=== PATIENT | male | born 1930 | race Caucasian/White ===

== ENCOUNTER 2020-03-12 17:13 | Emergency (ER) | payer MEDICARE ==
[~2020-03-12] VITALS: Ht 175.3 cm; Wt 73.5 kg
[~2020-03-12 17:13] MED LIST: ALBUTEROL2.5 MG/3 M INH; AMLODIPINE BESYL5 MG PO; ATORVASTATIN CA20 MG PO; EASY AIR COMPR1 EACH IH; ELIQUIS2.5 MG OD; LANTUS 3ML100 UNITS/; LISINOPRIL10 MG PO; METFORMIN HCL500 MG PO; VITAMIN B122500 MCG PO; VITAMIN D3 COM1 EACH PO; VITAMIN D34000 UNIT
--- OUTSIDE RECORDS SUMMARY | 2020-03-12 17:15 | XMS REPORT | Clinical Summary ---
Author Author [facility] Organization [facility] Address Unknown Phone Unavailable Care Team Providers Care Privacy Attorney Name Role Phone Neymar Ford MD PCP Allergies No Known Allergies Medications End Date Status Medication Sig Dispensed Refills Start Date Active hydrALAZINE (APRESOLINE) TAKE 1 TABLET 3 12/30 25 MG tablet BY ORAL ROUTE 8 2 TIMES EVERY DAY WITH FOOD Active metFORMIN (GLUCOPHAGE) Take 1,000 mg 0 01/01/2 01 1,000 mg tablet by mouth 2 8 (two) times a day. Active quinapril (ACCUPRIL) 40 TAKE ONE 0 12/07/ 201 MG tablet TABLET BY 8 MOUTH TWICE A DAY BEFORE MEALS Active carvedilol (COREG) 12.5 Take 12.5 mg 0 MG tablet by mouth 2 (two) times a day with meals. Active amLODIPine (NORVASC) 5 mg Take 5 mg by 0 tablet mouth daily. Active insulin GLARGINE (LANTUS) Inject 20 0 100 unit/mL injection Units under (vial) the skin daily. Patient takes it at 8 am after breakfast. He would like to have it here at 9 am. Active atorvastatin (LIPITOR) 10 Take by mouth 0 MG tablet daily. Dose Unknown Active Problems Problem Noted Date Pneumonia of both lungs due to infectious organism 0 03/16/2018 Social History Date Tobacco Use Types Packs/Day Years Used Never Smoker Smokeless Tobacco: Never Used Drinks/Week oz/Week Comments Alcohol Use No Sex Assigned at Date Recorded Not on file Industry Job Start Date Occupation Not on file Not on file Not on file Travel End Travel History Travel Start No recent travel history available. Last Filed Vital Signs Not on file Plan of Treatment Health Maintenance Due Date Last Done Comments SHINGLES VACCINES (#1) 1982 65+ PNEUMOCOCCAL VACCINE 1997 (1 of 2 - PCV13) INFLUENZA VACCINE 06/06/2020 Results Not on fileafter 03/12/2019 Insurance Type Payer Benefit Subscriber ID Effective Phone Address Plan / Dates Group HMO [employer] C[employer] xxxxxxxxxxx [id number] [employer] resent [place] HMO MCR ADV Advance Directives For more information, please contact: [phone] Patient Dish Person Explanation Type Date Recorded Advance Directives, 01/28/2016 1:02 PM Living Will and Medical Power of [employer] Advance Directives, 11/27/2016 1:16 PM Living Will and Medical Power of [employer] Advance Directives, 05/13/2018 9:31 AM Living Will and Medical Power of [employer] Date Inactivated Comments Code Status Date Activated 03/19/2018 9:24 PM Full Code 03/16/2018 11:28 PM Code Status decision reached by: Patient
--- OUTSIDE RECORDS SUMMARY | 2020-03-12 17:16 | XMS REPORT | Clinical Summary ---
Author Author [employer] 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 Active metFORMIN (GLUCOPHAGE) Take 1,000 mg 0 1000 MG tablet by mouth 2 (two) times daily. Active atorvastatin (LIPITOR) 20 Take 20 mg by 0 MG tablet mouth daily. Active insulin Inject 30 0 glargine,hum.rec.anlog Units (TOUJEO SOLOSTAR U-300 subcutaneousl INSULIN SUBQ) y daily. 11/13/2020 Active clopidogrel (PLAVIX) 75 Take 1 tablet 30 tablet 1 mg tablet (75 mg total) 0 by mouth daily. 11/13/2020 Active furosemide (LASIX) 20 MG Take 1 tablet 20 tablet 0 tablet (20 mg total) 0 by mouth daily. 11/12/2020 Active hydrALAZINE (APRESOLINE) Take 1 tablet 90 tablet 1 10 MG tablet (10 mg total) 0 by mouth every 8 (eight) hours. 11/12/2020 Active carvedilol (COREG) 6.25 Take 1 tablet 60 tablet 1 MG tablet (6.25 mg 0 total) by mouth 2 (two) times daily with breakfast and dinner. 10/28/2019 Discontinued cyanocobalamin, vitamin Take by mouth 0 B-12, 2,500 mcg Tab daily with breakfast. 11/13/2019 Discontinued amLODIPine (NORVASC) 2.5 Take 2.5 mg 0 MG tablet by mouth 2 (two) times daily. 11/13/2019 Discontinued lisinopril Take 10 mg by 0 (PRINIVIL,ZESTRIL) 10 MG mouth daily. tablet 11/13/2019 Discontinued carvedilol (COREG) 6.25 Take 1 tablet 60 tablet 1 MG tablet (6.25 mg 0 total) by mouth 2 (two) times daily with breakfast and dinner. 11/13/2019 Discontinued carvedilol (COREG) 6.25 Take 2 60 tablet 1 MG tablet tablets (12.5 0 mg total) by mouth 2 (two) times daily with breakfast and dinner. Active Problems Problem Noted Date Severe aortic stenosis 10/27/2019 Encounters Care Team Description Date Type Specialty Anayeli Moses RN Follow-up (s/p TAVR) 01/21/2020 Telephone Cardiology Adam Wynne MD TAVR / HERLINDA MCR - IP PROC ONLY 11/08/2019 Surgery Elaine Gomez 11/08/2019 Anesthesia Event Ramiro Abad MD R CATH & CORONARY ANGIOS 10/31/2019 Surgery 10/27/2019 Travel Tony Cai MD Arana, MD Asif Collins, MD Danii Severe aortic stenosis; Delirium; Acute kidney injury (HCC); Acute on chronic systolic heart failure (HCC); Chronic atrial fibrillation; Essential hypertension; Type 2 diabetes mellitus with stage 3 chronic kidney disease, unspecified whether fdc insulin use (HCC); Acute on chronic diastolic (congestive) heart failure (HCC) 10/26/2019 Hospital Cardiology - Encounter 11/13/2019 after 03/12/2019 Social History Date Tobacco Use Types Packs/Day Years Used Never Assessed Sex Assigned at Date Recorded Not on file Industry Job Start Date Occupation Not on file Not on file Not on file Travel End Travel History Travel Start No recent travel history available. Last Filed Vital Signs Time Taken Vital Sign Reading 11/13/2019 11:35 AM [facility] Blood Pressure 174/82 11/13/2019 2:05 PM [facility] Pulse 78 11/13/2019 11:35 AM [facility] Temperature 36.8 C (98.3 F) 11/13/2019 2:05 PM [facility] Respiratory Rate 18 11/13/2019 2:05 PM [facility] Oxygen Saturation 98% 11/13/2019 8:20 AM [facility] Inhaled Oxygen 21% Concentration 11/13/2019 8:12 AM [facility] Weight 72.4 kg (159 lb 9.6 oz) 10/26/2019 11:40 PM [facility] Height 172.7 cm (5' 8") 11/13/2019 8:12 AM [facility] Body Mass Index 24.27 Plan of Treatment Not on file Implants Device Identifier Shelf Expiration Date Model / Serial / L ot Implanted Type Area Manufactur er 09/12/2020 EVPROPLUS-26US / / [id number] Valve Evolut Pro+ Trnscthtr 34 IMPLANTS [employer]: Evproplus-26us - [id number] STRUCTURAL Implanted: Qty: 1 on 11/08/2019 by HEART Adam Wynne MD Procedures Comments Procedure Name Priority Date/Time Associated Diag nosis RHYTHM STRIP - SCAN 12/03/2019 4:01 PM [facility] RHYTHM STRIP - SCAN 11/27/2019 12:31 PM [facility] VASCULAR DIAGRAM -SCAN 11/21/2019 2:00 PM [facility] RHYTHM STRIP - SCAN 11/14/2019 1:33 PM [facility] REPORT OF PROCEDURE - 11/14/2019 ENDOSCOPY SCAN 11:13 AM [facility] CARDIAC CATH REPORT - 11/14/2019 SCAN 11:13 AM [facility] CARDIAC CATH REPORT - 11/14/2019 SCAN 11:13 AM [facility] PERMANENT LAB REPORT - 11/14/2019 SCAN 11:13 AM [facility] RHYTHM STRIP - SCAN 11/14/2019 11:13 AM [facility] RHYTHM STRIP - SCAN 11/14/2019 11:13 AM [facility] POCT-GLUCOSE METER Routine 11/13/2019 11:42 AM [facility] POCT-GLUCOSE METER Routine 11/13/2019 7:33 AM [facility] CBC W/PLT COUNT & AUTO Routine 11/13/2019 DIFFERENTIAL 4:43 AM [facility] HEPARIN ASSAY - Routine 11/13/2019 UNFRACTIONATED 4:43 AM [facility] PROTHROMBIN TIME/INR Routine 11/13/2019 4:43 AM [facility] FIBRINOGEN Routine 11/13/2019 4:43 AM [facility] CBC W/PLT COUNT & AUTO Routine 11/13/2019 DIFFERENTIAL 4:43 AM [facility] MAGNESIUM Routine 11/13/2019 4:43 AM [facility] BASIC METABOLIC PANEL (7) Routine 11/13/2019 4:43 AM [facility] POCT-GLUCOSE METER Routine 11/12/2019 9:57 PM [facility] POCT-GLUCOSE METER Routine 11/12/2019 5:43 PM [facility] RHYTHM STRIP - SCAN 11/12/2019 3:50 PM [facility] POCT-GLUCOSE METER Routine 11/12/2019 12:23 PM [facility] POCT-GLUCOSE METER Routine 11/12/2019 7:53 AM [facility] (CELLAVISION MANUAL DIFF) Routine 11/12/2019 5:01 AM [facility] CBC W/PLT COUNT & AUTO Routine 11/12/2019 DIFFERENTIAL 5:01 AM [facility] HEPARIN ASSAY - Routine 11/12/2019 UNFRACTIONATED 5:01 AM [facility] PROTHROMBIN TIME/INR Routine 11/12/2019 5:01 AM [facility] FIBRINOGEN Routine 11/12/2019 5:01 AM [facility] CBC W/PLT COUNT & AUTO Routine 11/12/2019 DIFFERENTIAL 5:01 AM [facility] MAGNESIUM Routine 11/12/2019 5:01 AM [facility] BASIC METABOLIC PANEL (7) Routine 11/12/2019 5:01 AM [facility] ECHOCARDIOGRAM REPORT - 11/11/2019 SCAN 9:21 PM [facility] POCT-GLUCOSE METER Routine 11/11/2019 8:49 PM [facility] POCT-GLUCOSE METER Routine 11/11/2019 5:03 PM [facility] POCT-GLUCOSE METER Routine 11/11/2019 11:49 AM [facility] POCT-GLUCOSE METER Routine 11/11/2019 8:17 AM [facility] CBC W/PLT COUNT & AUTO Routine 11/11/2019 DIFFERENTIAL 5:07 AM [facility] HEPARIN ASSAY - Routine 11/11/2019 UNFRACTIONATED 5:07 AM [facility] PROTHROMBIN TIME/INR Routine 11/11/2019 5:07 AM [facility] FIBRINOGEN Routine 11/11/2019 5:07 AM [facility] CBC W/PLT COUNT & AUTO Routine 11/11/2019 DIFFERENTIAL 5:07 AM [facility] MAGNESIUM Routine 11/11/2019 5:07 AM [facility] BASIC METABOLIC PANEL (7) Routine 11/11/2019 5:07 AM [facility] POCT-GLUCOSE METER Routine 11/10/2019 9:07 PM [facility] POCT-GLUCOSE METER Routine 11/10/2019 8:21 PM [facility] POCT-GLUCOSE METER Routine 11/10/2019 4:46 PM [facility] POCT-GLUCOSE METER Routine 11/10/2019 11:10 AM [facility] POCT-GLUCOSE METER Routine 11/10/2019 7:27 AM [facility] CBC W/PLT COUNT & AUTO Routine 11/10/2019 DIFFERENTIAL 4:13 AM [facility] HEPARIN ASSAY - Routine 11/10/2019 UNFRACTIONATED 4:13 AM [facility] PROTHROMBIN TIME/INR Routine 11/10/2019 4:13 AM [facility] FIBRINOGEN Routine 11/10/2019 4:13 AM [facility] CBC W/PLT COUNT & AUTO Routine 11/10/2019 DIFFERENTIAL 4:13 AM [facility] XR CHEST 1 VIEW Routine 11/10/2019 PORTABLE/BEDSIDE 2:43 AM [facility] LACTIC ACID, VENOUS Routine 11/10/2019 1:34 AM [facility] TROPONIN I Routine 11/10/2019 1:22 AM [facility] MAGNESIUM Routine 11/10/2019 1:22 AM [facility] BASIC METABOLIC PANEL (7) Routine 11/10/2019 1:22 AM [facility] ECG 12-LEAD Routine 11/10/2019 12:43 AM [facility] POCT-GLUCOSE METER Routine 11/09/2019 10:05 PM [facility] ECHOCARDIOGRAM REPORT - 11/09/2019 SCAN 9:21 PM [facility] TRANSFUSION SERVICE 11/09/2019 REPORT - SCAN 6:02 PM [facility] POCT-GLUCOSE METER Routine 11/09/2019 5:00 PM [facility] 2D ECHO W/ DOPPLER STAT 11/09/2019 (CW/PW/COLOR) 1:57 PM [facility] POCT-GLUCOSE METER Routine 11/09/2019 8:38 AM [facility] MAGNESIUM Routine 11/09/2019 6:12 AM [facility] BASIC METABOLIC PANEL (7) Routine 11/09/2019 6:12 AM [facility] XR CHEST 1 VIEW Routine 11/09/2019 PORTABLE/BEDSIDE 5:51 AM [facility] CBC W/PLT COUNT & AUTO Routine 11/09/2019 DIFFERENTIAL 4:17 AM [facility] APTT Routine 11/09/2019 4:17 AM [facility] HEPARIN ASSAY - Routine 11/09/2019 UNFRACTIONATED 4:17 AM [facility] PROTHROMBIN TIME/INR Routine 11/09/2019 4:17 AM [facility] FIBRINOGEN Routine 11/09/2019 4:17 AM [facility] CBC W/PLT COUNT & AUTO Routine 11/09/2019 DIFFERENTIAL 4:17 AM [facility] POCT-GLUCOSE METER Routine 11/08/2019 9:01 PM [facility] THROMBOELASTOGRAPH (TEG) Routine 11/08/2019 8:59 PM [facility] HEMOGLOBIN A1C Routine 11/08/2019 8:59 PM [facility] POCT-GLUCOSE METER Routine 11/08/2019 5:53 PM [facility] THROMBOELASTOGRAPH (TEG) Routine 11/08/2019 3:26 PM [facility] ANTITHROMBIN III AP Routine 11/08/2019 3:26 PM [facility] D-DIMER Routine 11/08/2019 3:26 PM [facility] APTT Routine 11/08/2019 3:26 PM [facility] APTT Routine 11/08/2019 3:26 PM [facility] XR CHEST 1 VIEW STAT 11/08/2019 PORTABLE/BEDSIDE 2:55 PM [facility] POCT-GLUCOSE METER Routine 11/08/2019 2:47 PM [facility] PREPARE LEUKO-REDUCED RBC Routine 11/08/2019 2:15 PM [facility] POCT-ACT Routine 11/08/2019 12:44 PM [facility] POCT-ACT Routine 11/08/2019 12:33 PM [facility] TAVR / HERLINDA MCR - IP 11/08/2019 Nonrheumatic a ortic valve PROC ONLY 12:19 PM [facility] stenosis Case Notes (2)CASE 1431/ ANESTHESIA / SILVIANO TRANSESOPHAGEAL ECHO Routine 11/08/2019 10:49 AM [facility] CONT WAVE PULSED DOPPLER Routine 11/08/2019 10:04 AM [facility] COLOR-FLOW MAPPING Routine 11/08/2019 10:04 AM [facility] ECG 12-LEAD Routine 11/08/2019 5:46 AM [facility] Procedure Note - Interface, External Ris In - 11/08/2019 5:46 AM [facility] Ventricula r Rate 88 BPM Atrial Rate 72 BPM QRS Duration 100 ms Q-T Interval 398 ms QTC Calculatio n(Bazett) 481 ms R [place] -56 degrees T [place] 108 degrees Atrial fibrillati on Left axis deviation Septal infarct , age undetermin ed Abnormal ECG No previous ECGs available ECG 12-LEAD STAT 11/08/2019 5:46 AM [facility] ABORH, MANUAL STAT 11/08/2019 3:21 AM [facility] CBC W/PLT COUNT & AUTO Routine 11/08/2019 DIFFERENTIAL 2:26 AM [facility] ABORH, MANUAL STAT 11/08/2019 2:26 AM [facility] TYPE AND SCREEN, STAT 11/08/2019 AUTOMATED 2:26 AM [facility] PROTHROMBIN TIME/INR STAT 11/08/2019 2:26 AM [facility] B-TYPE NATRIURETIC FACTOR Routine 11/08/2019 (BNP) 2:26 AM [facility] CBC W/PLT COUNT & AUTO Routine 11/08/2019 DIFFERENTIAL 2:26 AM [facility] MAGNESIUM Routine 11/08/2019 2:26 AM [facility] BASIC METABOLIC PANEL (7) Routine 11/08/2019 2:26 AM [facility] POCT-GLUCOSE METER Routine 11/07/2019 9:50 PM [facility] POCT-GLUCOSE METER Routine 11/07/2019 9:15 PM [facility] POCT-GLUCOSE METER Routine 11/07/2019 4:58 PM [facility] POCT-GLUCOSE METER Routine 11/07/2019 11:47 AM [facility] POCT-GLUCOSE METER Routine 11/07/2019 7:27 AM [facility] CBC W/PLT COUNT & AUTO Routine 11/07/2019 DIFFERENTIAL 4:56 AM [facility] CBC W/PLT COUNT & AUTO Routine 11/07/2019 DIFFERENTIAL 4:56 AM [facility] MAGNESIUM Routine 11/07/2019 4:56 AM [facility] BASIC METABOLIC PANEL (7) Routine 11/07/2019 4:56 AM [facility] POCT-GLUCOSE METER Routine 11/06/2019 9:24 PM [facility] POCT-GLUCOSE METER Routine 11/06/2019 4:50 PM [facility] POCT-GLUCOSE METER Routine 11/06/2019 12:01 PM [facility] POCT-GLUCOSE METER Routine 11/06/2019 8:02 AM [facility] (CELLAVISION MANUAL DIFF) Routine 11/06/2019 4:40 AM [facility] CBC W/PLT COUNT & AUTO Routine 11/06/2019 DIFFERENTIAL 4:40 AM [facility] CBC W/PLT COUNT & AUTO Routine 11/06/2019 DIFFERENTIAL 4:40 AM [facility] APTT Routine 11/06/2019 4:39 AM [facility] MAGNESIUM Routine 11/06/2019 4:39 AM [facility] BASIC METABOLIC PANEL (7) Routine 11/06/2019 4:39 AM [facility] APTT Routine 11/05/2019 10:40 PM [facility] POCT-GLUCOSE METER Routine 11/05/2019 10:18 PM [facility] POCT-GLUCOSE METER Routine 11/05/2019 4:55 PM [facility] POCT-GLUCOSE METER Routine 11/05/2019 1:14 PM [facility] POCT-GLUCOSE METER Routine 11/05/2019 7:09 AM [facility] PULMONARY FUNCTION - SCAN 11/05/2019 6:40 AM [facility] CBC W/PLT COUNT & AUTO Routine 11/05/2019 DIFFERENTIAL 5:42 AM [facility] CBC W/PLT COUNT & AUTO Routine 11/05/2019 DIFFERENTIAL 5:42 AM [facility] MAGNESIUM Routine 11/05/2019 5:42 AM [facility] BASIC METABOLIC PANEL (7) Routine 11/05/2019 5:42 AM [facility] POCT-GLUCOSE METER Routine 11/04/2019 9:29 PM [facility] APTT Routine 11/04/2019 8:46 PM [facility] POCT-GLUCOSE METER Routine 11/04/2019 5:59 PM [facility] APTT Routine 11/04/2019 2:32 PM [facility] POCT-GLUCOSE METER Routine 11/04/2019 11:50 AM [facility] CTA CHEST Routine 11/04/2019 10:49 AM [facility] CTA ABDOMEN & PELVIS Routine 11/04/2019 10:49 AM [facility] POCT-GLUCOSE METER Routine 11/04/2019 7:12 AM [facility] (CELLAVISION MANUAL DIFF) Routine 11/04/2019 5:03 AM [facility] CBC W/PLT COUNT & AUTO Routine 11/04/2019 DIFFERENTIAL 5:03 AM [facility] APTT Routine 11/04/2019 5:03 AM [facility] CBC W/PLT COUNT & AUTO Routine 11/04/2019 DIFFERENTIAL 5:03 AM [facility] MAGNESIUM Routine 11/04/2019 5:03 AM [facility] BASIC METABOLIC PANEL (7) Routine 11/04/2019 5:03 AM [facility] POCT-GLUCOSE METER Routine 11/03/2019 9:33 PM [facility] APTT Routine 11/03/2019 7:40 PM [facility] POCT-GLUCOSE METER Routine 11/03/2019 5:05 PM [facility] OSMOLALITY, SERUM Routine 11/03/2019 4:09 PM [facility] OSMOLALITY, URINE Routine 11/03/2019 4:08 PM [facility] APTT Routine 11/03/2019 11:50 AM [facility] POCT-GLUCOSE METER Routine 11/03/2019 11:47 AM [facility] (MANUAL DIFFERENTIAL) Routine 11/03/2019 4:05 AM [facility] CBC W/PLT COUNT & AUTO Routine 11/03/2019 DIFFERENTIAL 4:05 AM [facility] APTT Routine 11/03/2019 4:05 AM [facility] PROTHROMBIN TIME/INR Routine 11/03/2019 4:05 AM [facility] CBC W/PLT COUNT & AUTO Routine 11/03/2019 DIFFERENTIAL 4:05 AM [facility] MAGNESIUM Routine 11/03/2019 4:05 AM [facility] BASIC METABOLIC PANEL (7) Routine 11/03/2019 4:05 AM [facility] US RENAL COMPLETE Routine 11/03/2019 12:51 AM [facility] APTT Routine 11/02/2019 10:24 PM [facility] POCT-GLUCOSE METER Routine 11/02/2019 9:11 PM [facility] POCT-GLUCOSE METER Routine 11/02/2019 5:37 PM [facility] APTT Routine 11/02/2019 4:06 PM [facility] UREA NITROGEN, RANDOM Routine 11/02/2019 URINE 3:24 PM [facility] CREATININE, RANDOM URINE Routine 11/02/2019 3:24 PM [facility] SODIUM, RANDOM URINE Routine 11/02/2019 3:24 PM [facility] URINALYSIS W/ MICROSCOPIC Routine 11/02/2019 3:24 PM [facility] APTT Routine 11/02/2019 2:16 PM [facility] POCT-GLUCOSE METER Routine 11/02/2019 12:25 PM [facility] POCT-GLUCOSE METER Routine 11/02/2019 7:23 AM [facility] (CELLAVISION MANUAL DIFF) Routine 11/02/2019 4:22 AM [facility] CBC W/PLT COUNT & AUTO Routine 11/02/2019 DIFFERENTIAL 4:22 AM [facility] PROTHROMBIN TIME/INR Routine 11/02/2019 4:22 AM [facility] CBC W/PLT COUNT & AUTO Routine 11/02/2019 DIFFERENTIAL 4:22 AM [facility] MAGNESIUM Routine 11/02/2019 4:22 AM [facility] BASIC METABOLIC PANEL (7) Routine 11/02/2019 4:22 AM [facility] PERIPHERAL VASCULAR 11/01/2019 REPORT - SCAN 9:21 PM [facility] POCT-GLUCOSE METER Routine 11/01/2019 9:15 PM [facility] POCT-GLUCOSE METER Routine 11/01/2019 6:08 PM [facility] SPIROMETRY Routine 11/01/2019 1:31 PM [facility] PROTHROMBIN TIME/INR Add-On 11/01/2019 8:53 AM [facility] APTT Routine 11/01/2019 8:53 AM [facility] POCT-GLUCOSE METER Routine 11/01/2019 7:35 AM [facility] (CELLAVISION MANUAL DIFF) Routine 11/01/2019 4:54 AM [facility] CBC W/PLT COUNT & AUTO Routine 11/01/2019 DIFFERENTIAL 4:54 AM [facility] APTT Add-On 11/01/2019 4:54 AM [facility] PROTHROMBIN TIME/INR Routine 11/01/2019 4:54 AM [facility] CBC W/PLT COUNT & AUTO Routine 11/01/2019 DIFFERENTIAL 4:54 AM [facility] MAGNESIUM Routine 11/01/2019 4:54 AM [facility] BASIC METABOLIC PANEL (7) Routine 11/01/2019 4:54 AM [facility] CAROTID DOPPLER BILATERAL Routine 10/31/2019 7:40 PM [facility] POCT-GLUCOSE METER Routine 10/31/2019 6:01 PM [facility] POCT-GLUCOSE METER Routine 10/31/2019 12:18 PM [facility] POCT-ACT Routine 10/31/2019 11:10 AM [facility] R CATH & CORONARY ANGIOS 10/31/2019 Aortic valve stenosis, 10:46 AM [facility] etiology of cardiac valve disease unspecified POCT-GLUCOSE METER Routine 10/31/2019 8:11 AM [facility] (CELLAVISION MANUAL DIFF) Routine 10/31/2019 5:20 AM [facility] CBC W/PLT COUNT & AUTO Routine 10/31/2019 DIFFERENTIAL 5:20 AM [facility] APTT Routine 10/31/2019 5:20 AM [facility] CBC W/PLT COUNT & AUTO Routine 10/31/2019 DIFFERENTIAL 5:20 AM [facility] MAGNESIUM Routine 10/31/2019 5:20 AM [facility] BASIC METABOLIC PANEL (7) Routine 10/31/2019 5:20 AM [facility] POCT-GLUCOSE METER Routine 10/30/2019 9:48 PM [facility] POCT-GLUCOSE METER Routine 10/30/2019 4:07 PM [facility] HAPTOGLOBIN Routine 10/30/2019 2:35 PM [facility] LACTATE DEHYDROGENASE Routine 10/30/2019 (LDH) 2:35 PM [facility] HEMOGLOBIN AND HEMATOCRIT Routine 10/30/2019 2:35 PM [facility] POCT-GLUCOSE METER Routine 10/30/2019 12:10 PM [facility] POCT-GLUCOSE METER Routine 10/30/2019 7:19 AM [facility] (CELLAVISION MANUAL DIFF) Routine 10/30/2019 4:19 AM [facility] CBC W/PLT COUNT & AUTO Routine 10/30/2019 DIFFERENTIAL 4:19 AM [facility] HEPATIC FUNCTION PANEL Add-On 10/30/2019 4:19 AM [facility] FERRITIN Add-On 10/30/2019 4:19 AM [facility] IRON, TIBC, % SAT. Add-On 10/30/2019 (WITHOUT FERRITIN) 4:19 AM [facility] APTT Routine 10/30/2019 4:19 AM [facility] TSH Routine 10/30/2019 4:19 AM [facility] RPR Routine 10/30/2019 4:19 AM [facility] [facility] VITAMIN B12 AND FOLATE Routine 10/30/2019 4:19 AM [employer] [facility] CBC W/PLT COUNT & AUTO Routine 10/30/2019 DIFFERENTIAL 4:19 AM [employer] [facility] MAGNESIUM Routine 10/30/2019 4:19 AM [employer] [facility] BASIC METABOLIC PANEL (7) Routine 10/30/2019 4:19 AM [employer] [facility] POCT-GLUCOSE METER Routine 10/29/2019 8:19 PM [employer] [facility] POCT-GLUCOSE METER Routine 10/29/2019 5:21 PM [employer] [facility] POCT-GLUCOSE METER Routine 10/29/2019 11:43 AM [employer] [facility] BASIC METABOLIC PANEL (7) Add-On 10/29/2019 3:38 AM [employer] [facility] [facility] APTT Routine 10/29/2019 3:38 AM [employer] [facility] [facility] CBC (HEMOGRAM ONLY) Routine 10/29/2019 3:38 AM [employer] [facility] [facility] MAGNESIUM Routine 10/29/2019 3:38 AM [employer] [facility] [facility] ECHOCARDIOGRAM REPORT - 10/28/2019 SCAN 9:22 PM [employer] [facility] POCT-GLUCOSE METER Routine 10/28/2019 9:12 PM [employer] [facility] POCT-GLUCOSE METER Routine 10/28/2019 5:34 PM [employer] [facility] POCT-GLUCOSE METER Routine 10/28/2019 4:07 PM [employer] [facility] APTT Routine 10/28/2019 12:55 PM [employer] [facility] POCT-GLUCOSE METER Routine 10/28/2019 12:22 PM [employer] [facility] 2D ECHO W/ DOPPLER Routine 10/28/2019 (CW/PW/COLOR) 8:44 AM [employer] [facility] APTT Routine 10/28/2019 4:07 AM [employer] [facility] CBC (HEMOGRAM ONLY) Routine 10/28/2019 4:07 AM [employer] [facility] MAGNESIUM Routine 10/28/2019 4:07 AM [employer] [facility] HEPATIC FUNCTION PANEL Routine 10/28/2019 4:07 AM [employer] [facility] BASIC METABOLIC PANEL (7) Routine 10/28/2019 4:07 AM [employer] [facility] POCT-GLUCOSE METER Routine 10/27/2019 9:10 PM [employer] [facility] APTT Routine 10/27/2019 8:20 PM [employer] [facility] PROCALCITONIN Routine 10/27/2019 8:20 PM [employer] [facility] POCT-GLUCOSE METER Routine 10/27/2019 6:17 PM [facility] [facility] CT BRAIN WITHOUT IV STAT 10/27/2019 CONTRAST 2:07 PM [employer] [facility] TROPONIN I Routine 10/27/2019 12:32 PM [employer] [facility] APTT Routine 10/27/2019 11:52 AM [employer] [facility] URINALYSIS W/ REFLEX Routine 10/27/2019 URINE CULTURE 8:44 AM [employer] [facility] XR CHEST 1 VIEW Routine 10/27/2019 PORTABLE/BEDSIDE 8:14 AM [employer] [facility] BLOOD CULTURE Routine 10/27/2019 6:58 AM [employer] [facility] AMMONIA Routine 10/27/2019 6:57 AM [employer] [facility] BLOOD CULTURE Routine 10/27/2019 6:05 AM [employer] [facility] (CELLAVISION MANUAL DIFF) Routine 10/27/2019 6:01 AM [employer] [facility] CBC W/PLT COUNT & AUTO Routine 10/27/2019 DIFFERENTIAL 6:01 AM [employer] [facility] TROPONIN I Routine 10/27/2019 6:01 AM [employer] [facility] B-TYPE NATRIURETIC FACTOR Routine 10/27/2019 (BNP) 6:01 AM [employer] [facility] APTT Routine 10/27/2019 6:01 AM [employer] [facility] APTT Routine 10/27/2019 6:01 AM [employer] [facility] LACTIC ACID, VENOUS Routine 10/27/2019 6:01 AM [employer] [facility] TSH/FREE T4 IF INDICATED Routine 10/27/2019 6:01 AM [employer] [facility] CBC W/PLT COUNT & AUTO Routine 10/27/2019 DIFFERENTIAL 6:01 AM [employer] [facility] PHOSPHORUS Routine 10/27/2019 6:01 AM [employer] [facility] MAGNESIUM Routine 10/27/2019 6:01 AM [employer] [facility] PROTHROMBIN TIME/INR Routine 10/27/2019 6:01 AM [employer] [facility] HEPATIC FUNCTION PANEL Routine 10/27/2019 6:01 AM [employer] [facility] BASIC METABOLIC PANEL (7) Routine 10/27/2019 6:01 AM [employer] [facility] POCT-GLUCOSE METER Routine 10/27/2019 5:59 AM [employer] [facility] after 03/12/2019 Results * RHYTHM STRIP - SCAN (12/03/2019 4:01 PM [employer] [facility]) Only the most recent of 6 results within the time period is included. Narrative Performed At This result has an attachment that is n ot available. * VASCULAR DIAGRAM -SCAN (11/21/2019 2:00 PM [employer] [facility]) Narrative Performed At This result has an attachment that is n ot available. * EKG-SCANNED (11/14/2019 11:13 AM [employer] [facility]) Narrative Performed At This result has an attachment that is n ot available. * CARDIAC CATH REPORT - SCAN (11/14/2019 11:13 AM [employer] [facility]) Narrative Performed At This result has an attachment that is n ot available. * CARDIAC CATH REPORT - SCAN (11/14/2019 11:13 AM [employer] [facility]) Narrative Performed At This result has an attachment that is n ot available. * PERMANENT LAB REPORT - SCAN (11/14/2019 11:13 AM [employer] [facility]) Narrative Performed At This result has an attachment that is n ot available. * POC-Glucose meter (11/13/2019 11:42 AM [employer] [facility]) Only the most recent of 65 results within the time period is included. POC-Glucose Meter 372 (H)Comment: : TESTED AT 70 - 110 mg/dL [address] [address]: Dehairer/Personnel Specialist ID = [id number] for ULISES KELLY Specimen Blood Performing Organization Address [facility]/Count Includes [facility] one Number [address] [facility] * Heparin Assay - Unfractionated (11/13/2019 4:43 AM [employer] [facility]) Only the most recent of 5 results within the time period is included. Anti 10A-Unfractionated 1.10 (HH) 0.30 - 0.70 u/ml [facility] Heparin [facility] Specimen Blood Narrative Performed At Recommendations for Monitoring Unfractionated Heparin [facility] Therapeutic Range: 0.3-0.7 u/mL with continuous I V infusion [facility] Performing Organization Address [facility] Ph one Number [address] [facility] * CBC with platelet count + automated diff (11/13/2019 4:43 AM [employer] [facility]) Only the most recent of 16 results within the time period is included. WBC 6.1 3.5 - 10.5 K/L [facility] RBC 3.73 (L) 4.63 - 6.08 M/L [facility] Hemoglobin 10.0 (L) 13.7 - 17.5 GM/DL [facility] Hematocrit 32.1 (L) 40.1 - 51.0 % [facility] MCV 86.1 79.0 - 92.2 fL [facility] MCH 26.8 25.7 - 32.2 pg [facility] MCHC 31.2 (L) 32.3 - 36.5 GM/DL [facility] RDW 18.2 (H) 11.6 - 14.4 % [facility] Platelets 160 150 - 450 K/CU MM [facility] MPV 10.4 9.4 - 12.4 fL [facility] nRBC 0 0 - 0 /100 WBC [facility] % Neutros 68 % [facility] % Lymphs 15 % [facility] % Monos 12 % [facility] % Eos 3 % [facility] % Baso 1 % [facility] # Neutros 4.14 1.78 - 5.38 K/L [facility] # Lymphs 0.90 (L) 1.32 - 3.57 K/L [facility] # Monos 0.75 0.30 - 0.82 K/L [facility] # Eos 0.15 0.04 - 0.54 K/L [facility] # Baso 0.08 0.01 - 0.08 K/L [facility] Immature 1 0 - 1 % [facility] Granulocytes-Relative [facility] Specimen Blood Performing Organization Address [facility] Ph one Number [address] [facility] * Prothrombin time/INR (11/13/2019 4:43 AM [employer]) Only the most recent of 11 results within the time period is included. Protime 17.9 (H) 11.9 - 14.[address] [facility] INR 1.5 <=5.9 [facility] Specimen Blood Narrative Performed At Effective 04/03/2019: PT Reference Range Change [facility] New: 11.9-14.2Previous: 11.7-14.7 [facility] MEDICAL CE NTER RECOMMENDED COUMADIN/WARFARIN INR THERA PY RANGES STANDARD DOSE: 2.0-3.0Includes: PRO PHYLAXIS for venous thrombosis, systemic embolization; TREATMENT for venous thro mbosis and/or pulmonary embolus. HIGH RISK: Target INR is 2.5-3.5 for pa tients wiht mechanical heart valves. Performing Organization Address [facility]/Count Includes [facility] one Number [address] [facility] * Fibrinogen (11/13/2019 4:43 AM [employer]) Only the most recent of 5 results within the time period is included. Fibrinogen 362 225 - 434 mg/dl [facility] Specimen Blood Performing Organization Address City/[facility] Ph one Number [address] [facility] * Magnesium (11/13/2019 4:43 AM [employer]) Only the most recent of 18 results within the time period is included. Magnesium 1.7Comment: Specimen slightly 1.6 - 2.6 mg/dL [facility] Specimen Blood Performing Organization Address City/[facility]/Count Includes [facility] one Number [place] [address] [facility] * Basic metabolic panel (11/13/2019 4:43 AM [employer]) Only the most recent of 18 results within the time period is included. Sodium 137 136 - 145 meq/L [facility] Potassium 4.6Comment: Specimen slightly 3.5 - 5.1 meq/L [facility] Chloride 105 98 - 107 meq/L [facility] CO2 25 22 - 29 meq/L [facility] BUN 30 (H) 7 - 21 mg/dL [facility] Creatinine 1.36 (H)Comment: Specimen 0.57 - 1.25 mg/dL C [facility] slightly hemolyzed [facility] Glucose 164 (H) 70 - 105 mg/dL [facility] Calcium 9.0 8.4 - 10.2 mg/dL [facility] EGFR 50Comment: ESTIMATED GFR IS mL/min/1.73 sq m [facility] NOT ACCURATE CREATININE [facility] CLEARANCE IN PREDICTING GLOMERULAR FILTRATION RATE. ESTIMATED GFR IS NOT APPLICABLE FOR DIALYSIS PATIENTS. Specimen Blood Performing Organization Address City/[facility]/Count Includes [facility] one Number [address] [facility] * Manual Differential (11/12/2019 5:01 AM [employer]) Only the most recent of 8 results within the time period is included. % Neutros 80 % [facility] % Lymphs 8 % [facility] % Monos 8 % [facility] % Eos 1 % [facility] % Baso 1 % [facility] % Atypical Lymphs 2 (H) 0 - 0 % [facility] # Neutros 4.40 1.78 - 5.38 K/ul [facility] # Lymphs 0.44 (L) 1.32 - 3.57 K/ul [facility] # Monos 0.44 0.30 - 0.82 K/uL [facility] # Eos 0.06 0.04 - 0.54 K/uL [facility] # Baso 0.06 0.01 - 0.08 K/uL [facility] # Atypical Lymphs 0.11 (H) 0.00 - 0.00 K/uL [facility] Total Counted 100 [facility] WBC Morphology Normal [facility] Platelet Morphology Normal [facility] Polychromasia 2+ moderate [facility] Hypochromia 1+ few [facility] Artifact Present [facility] Platelet Conc Decreased [facility] Specimen Blood Narrative Performed At Received comment: [facility] User comments: [facility] Slide comments: Performing Organization Address City/State/Zipcode Ph one Number [facility] [address] [place], [place] [address] [facility] * ECHOCARDIOGRAM REPORT - SCAN (11/11/2019 9:21 PM [employer] [facility]) Narrative Performed At This result has an attachment that is n ot available. * XR chest 1 view portable / bedside (11/10/2019 2:43 AM [employer]) Only the most recent of 4 results within the time period is included. Specimen Narrative Performed At FINAL REPORT GE myGreek CLINICAL INDICATION: IABP position Comparison: 11/09/2019 No radiopaque IABP tip is identified. T his may relate to interval removal or motion artifact. Please annie elate. Repeat imaging can be performed, as indicated. The cardiomediastinal contours are stab le. The lung volumes remain low. Central pu lmonary vascular congestion and bilateral parenchymal opacities are similar to previous. There is no pneumothorax. Signed: Mynor Brooks MD Report Verified Date/Time: 0 04:33:45 Procedure Note Interface, External Ris In - 11/10/2019 4:35 AM [employer] [facility] FINAL REPORT CLINICAL INDICATION: IABP position Comparison: 11/09/2019 No radiopaque IABP tip is identified. This may relate to interval removal or motion artifact. Please correlate. Repeat imaging can be performed, as indicated. The cardiomediastinal contours are stable. The lung volumes remain low. Central pulmonary vascular congestion and bilateral parenchymal opacities are similar to previous. There is no pneumothorax. Signed: Mynor Brooks MD Report Verified Date/Time: 11/10/2019 04:33:45 Performing Organization Address [facility] Ph one Number GE RIS * Lactic acid, venous (11/10/2019 1:34 AM [employer]) Only the most recent of 2 results within the time period is included. Lactate, Venous 1.7Comment: Specimen slightly 0.5 - 2.2 mmol/ L [facility] hemolyzed [facility] Specimen Blood Performing Organization Address [facility] Ph one Number [address] [facility]ENTER * Troponin I (11/10/2019 1:22 AM [employer] [facility]) Only the most recent of 3 results within the time period is included. Troponin I 0.25 (HH) 0.00 - 0.03 ng/mL [facility] Specimen Blood Narrative Performed At Troponin I (TnI) levels must be interpreted in the co ntext of the presenting [facility] symptoms and the clinical findings. Elevated TnI leve ls indicate myocardial [facility] damage, but are not specific for ischem ic heart disease. Elevated TnI levels are seen in patients with other cardiac con ditions (including myocarditis and congestive heart failure), and slight T nI elevations occur in patients with other conditions, including sepsis, anthony al failure, acidosis, acute neurological disease, and persistent tachyarrhythmia . Performing Organization Address [facility]/Count Includes [facility] one Number [address] [facility]ENTER * ECG 12 lead (11/10/2019 12:43 AM [employer]) Only the most recent of 2 results within the time period is included. Specimen Narrative Performed At Ventricular Rate 81 BPM GE MUSE Atrial Rate 73 BPM QRS Duration 100 ms Q-T Interval 402 ms QTC Calculation(Bazett) 466 ms R [place] -47 degrees T [place] 172 degrees Atrial fibrillation Left axis deviation Anteroseptal infarct , age undetermined ST & T wave abnormality, consider later al ischemia Abnormal ECG Confirmed by MD PALMER MAJID ([id number]) on 11/10/2019 1:25:58 PM Procedure Note Interface, External Ris In - 11/10/2019 1:26 PM [employer] [facility] Ventricular Rate 81 BPM Atrial Rate 73 BPM QRS Duration 100 ms Q-T Interval 402 ms QTC Calculation(Bazett) 466 ms R [place] -47 degrees T [place] 172 degrees Atrial fibrillation Left axis deviation Anteroseptal infarct , age undetermined ST & T wave abnormality, consider lateral ischemia Abnormal ECG Confirmed by MD PALMER MAJID ([id number]) on 11/10/2019 1:25:58 PM Performing Organization Address City/[facility]/Count Includes [facility] one Number GE MUSE * ECHOCARDIOGRAM REPORT - SCAN (11/09/2019 9:21 PM [employer] [facility]) Narrative Performed At This result has an attachment that is n ot available. * TRANSFUSION SERVICE REPORT - SCAN (11/09/2019 6:02 PM [employer]) Narrative Performed At This result has an attachment that is n ot available. * 2D Echo W/Doppler(CW/PW/Color) (11/09/2019 1:57 PM [employer]) Ejection Fraction [facility] ECHO HEARTLAB [facility] Specimen Narrative Performed At Transthoracic Echocardiography Report (TTE) [facility] ECH O HEARTLAB Demographics [facility] Patient Name Stephanie MUNOZ ate of Study11/09/2019 OSMEL [id number] Gender Male Visit Number [id number] Jodi kasper Unknown [id number] Room [id number] Number Date of Birth1930 Ref erring Physician Age89 year(s) SonographerMjae Truong [facility] RDCS AnalystAlex Kathy Interpreting Palak Vicente, PhysicianMD Procedure Type of Study TTE procedure:2DECHO W DO PPLER(CW/PW/COLOR) (STAT) Indications:Shortness of breath. Clinical History AFIB;DM;HLD;HTN;R CATH/CA;AVR 11/08/18 TA VR Height: 68 inches Weight: 73.48 kg (162 lbs) BSA: 1.87 m^2 BMI: 24.63 kg/m^2 HR: 83 bpm BP: 129/62 mmHg Summary 1. Normal LV size. Severe LVH. All of t he LV segments contract normally. LVEF is normal (55-60%) 2. RV chamber size is moderately enlarg ed . Global RV systolic function is depressed 3. Core bioprosthetic aortic valve is w ell seated. Mild paravalvular aortic regurgitation. 4. Estimated peak systolic PA pressure is 65-70 mmHg . 5. Mild to moderate TR. RA pressure 16- 20mmHg 6. Moderate mitral regurgitation. Previous Study In comparison with the prior exam 10/28 the following changes are noted: LV function has normalized. Core valve has replaced severe . . Signature Findings Left Ventricle The left ventricle is chamber size (by PSLAX dimension) is normal (male - LVIDd 4.2-5.8cm) . Severe concentric LV hypertrophy. All of the LV segments contract normally . Estimated LVEF by qualitative assessment is normal (55-60%) . Degree of diastolic dysfunction (LAP assessment) is inconclusive due to mitral annular calcification . Left AtriumLA s ize is severely enlarged . Right VentricleRV chamb er size is moderately enlarged . Global RV systolic function is depressed . Right Atrium Right atrium dilated. Aortic Valve Mild p aravalvular aortic regurgitation. A CoreValve percutaneous (TAVR) biologic AoV prosthesis is visualized . The prosthetic AoV appears well-seated with normal function by Doppler. AoV dimensionless obstructive index (DOI)) is 0.82 . Mitral Valve Mild M V leaflet thickening. Mild mitral annular calcification. Moderate mitral regurgitation. Tricuspid ValveMild-to- moderate tricuspid regurgitation. Estimated peak systolic PA pressure is 65-70 mmHg . Pulmonic Valve Normal P V structure and function by limited views and Doppler. Aorta Aortic root size (SInus of Valsalva diameter) is normal . PericardiumNo e vidence of pericardial effusion. IVC/SVC/PA/PV/PleuralThe estimated RA pressure by IVC dynamics 16-20mmHg . Chambers/Structures Left Atrium LA Dimension: 4.93 cm LA Area: 34.68 cm^2 LA Volume: 134.95 ml LA Vol. Index: 72 ml/m^2 Left Ventricle LVIDd: 4.32 cm LVEDV:87.29 ml LVIDs: 3.14 cm LVESV:30.85 ml LV Septum Diastolic: 1.65 cm LVEF 2D Cube: 63.6 % LV PW Diastolic: 1.63 cm LV FS: 27.3 % LVOT Diameter: 2.16 cm LVEF: 64.7 % Aorta Ao Root S of Ramírez.: 3.37 cm Doppler/Quantitative Measurements Mitral Valve MV Peak E-Wave: 1.18 m/s MV Peak A-Wave: 0.01 m/s E/A Ratio: 179.08 Peak Gradient: 5.59 mmHg Decelera tion Time: 223.9 msec MV Adonis. Peak: Aortic Valve Peak Velocity: 1.6 m/s Mean Velocity: 1.03 m/s Peak Gradient: 10.3 mmHg Mean Gradient: 5.19 mmHg AV Area (continuity): 3.01 cm^2 AV VTI: 26 cm AV DVI: 0.82 LVOT Peak Velocity: 1.29 m/s Peak Gradient: 6.64 mmHg Mean Velocity: 0.89 m/s Mean Gradient: 3.64 mmHg LVOT Diameter: 2.16 cm LVOT VTI: 21.35 cm LVOT Area: 3.66 cm^2 LVOT SV:78.19 ml LVOT CO: 6.49 l/min LVOT CI: 3.47 l/min/m^2 Procedure Note Interface, External Ris In - 11/09/2019 6:28 PM [employer] [facility] Transthoracic Echocardiography Report (TTE) Demographics Patient Name BREANA, Date of Study 11/09/2019 OSMEL Gender Male Visit Number [id number] Race Unknown Room Number 6217 Number Date of 1930 Referring Physician Age 89 year(s) Campus Coordinator Alejandra Rios RDCS Bread Racker Joshua Chavez Interpreting Physician KAITLYNN Neumann Procedure Type of Study TTE procedure:2DECHO W DOPPLER(CW/PW/COLOR) (STAT) Indications:Shortness of breath. 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 Normal LV size. Severe LVH. All of the LV segments contract normally. LVEF is normal (55-60%) 2. RV chamber size is moderately enlarged . Global RV systolic function is depressed 3. Core bioprosthetic aortic valve is well seated. Mild paravalvular aortic regurgitation. 4. Estimated peak systolic PA pressure is 65-70 mmHg . 5. Mild to moderate TR. RA pressure 16-20mmHg 6. Moderate mitral regurgitation. Previous Study In comparison with the prior exam 10/28/19 the following changes are noted: LV function has normalized. Core valve has replaced severe . . Signature Findings Left Ventricle The left ventricle is chamber size (by PSLAX dimension) is normal (male - LVIDd 4.2-5.8cm) . Severe concentric LV hypertrophy. All of the LV segments contract normally . Estimated LVEF by qualitative assessment is normal (55-60%) . Degree of diastolic dysfunction (LAP assessment) is inconclusive due to mitral annular calcification . Left Atrium LA size is severely enlarged . Right Ventricle RV chamber size is moderately enlarged . Global RV systolic function is depressed . Right Atrium Right atrium dilated. Aortic Valve Mild paravalvular aortic regurgitation. A CoreValve percutaneous (TAVR) biologic AoV prosthesis is visualized . The prosthetic AoV appears well-seated with normal function by Doppler. AoV dimensionless obstructive index (DOI)) is 0.82 . Mitral Valve Mild MV leaflet thickening. Mild mitral annular calcification. Moderate mitral regurgitation. Tricuspid Valve [id number] tricuspid regurgitation. Estimated peak systolic PA pressure is 65-70 mmHg . Pulmonic Valve Normal PV structure and function by limited views and Doppler. Aorta Aortic root size (SInus of Valsalva diameter) is normal . Pericardium No evidence of pericardial effusion. IVC/SVC/PA/PV/Pleural The estimated RA pressure by IVC dynamics 16-20mmHg . Chambers/Structures Left Atrium LA Dimension: 4.93 cm LA Area: 34.68 cm^2 LA Volume: 134.95 ml LA Vol. Index: 72 ml/m^2 Left Ventricle LVIDd: 4.32 cm LVEDV:87.29 ml LVIDs: 3.14 cm LVESV:30.85 ml LV Septum Diastolic: 1.65 cm LVEF 2D Cube: 63.6 % LV PW Diastolic: 1.63 cm LV FS: 27.3 % LVOT Diameter: 2.16 cm LVEF: 64.7 % Aorta Ao Root S of Ramírez.: 3.37 cm Doppler/Quantitative Measurements Mitral Valve MV Peak E-Wave: 1.18 m/s MV Peak A-Wave: 0.01 m/s E/A Ratio: 179.08 Peak Gradient: 5.59 mmHg Deceleration Time: 223.9 msec MV Adonis. Peak: Aortic Valve Peak Velocity: 1.6 m/s Mean Velocity: 1.03 m/s Peak Gradient: 10.3 mmHg Mean Gradient: 5.19 mmHg AV Area (continuity): 3.01 cm^2 AV VTI: 26 cm AV DVI: 0.82 LVOT Peak Velocity: 1.29 m/s Peak Gradient: 6.64 mmHg Mean Velocity: 0.89 m/s Mean Gradient: 3.64 mmHg LVOT Diameter: 2.16 cm LVOT VTI: 21.35 cm LVOT Area: 3.66 cm^2 LVOT SV:78.19 ml LVOT CO: 6.49 l/min LVOT CI: 3.47 l/min/m^2 Performing Organization Address [facility] Ph one Number [facility] ECHO HEARTLAB [facility]CK[facility]ON CPACS * aPTT (11/09/2019 4:17 AM [employer] [facility]) Only the most recent of 25 results within the time period is included. PTT 38.1 (H) 22.5 - 36.[address] [facility] Specimen Blood Performing Organization Address City/[facility] Ph one Number [place] [address] [facility] * Thromboelastograph (TEG) (11/08/2019 8:59 PM [employer] [facility]) Only the most recent of 2 results within the time period is included. TEG Activated Clotting 11.0 (H) 4.0 - 7.0 minutes [facility] TEG Fibrinogen Activity 42.4 (L) 61.0 - 73.0 degrees [facility] TEG Platelet Aggregation 53.4 (L) 55.0 - 65.0 MM [facility] TEG Fibrinolysis 0.0 0.0 - 5.0 % [facility] TEG-H Activated Clotting 4.2 4.0 - 7.[address] [facility] TEG-H Fibrinogen Activity 74.9 (H) 61.0 - 73.0 degrees [facility] TEG-H Platelet 62.8 55.0 - 65.[address] [facility] Aggregation [facility] TEG-H Fibrinolysis 0.2 0.0 - 5.0 % [facility] Specimen Blood Performing Organization Address [facility]/Count Includes [facility] one Number [place] [address] [facility] * Hemoglobin A1c (11/08/2019 8:59 PM [employer]) Hemoglobin A1C 8.9 (H) 4.3 - 6.1 % [facility] Specimen Blood Performing Organization Address [facility] one Number [place] [address] [facility] * D-dimer (11/08/2019 3:26 PM [employer] [facility]) D-Dimer, Quant 2.20 (H) <0.50 MG/L FEU [facility] Specimen Blood Narrative Performed At Intended Use: The D-Dimer Assay can be used to aid in the diagnosis of Deep Vein [facility] Thrombosis (DVT) and Pulmonary Embolism Disease (PED) . [facility] In patients with low pre-test probabili ty, various studies concerning STA Liatest D-dimer test have reported that with a cutoff value of 0.50 MG/L FEU, the Negative Predictive Value (NPV) reg arding the exclusion of thrombosis is within 95-100% range. Prior to Initiating Heparin Performing Organization Address [facility]/Count Includes [facility] one Number [address] [facility] * Antithrombin III (11/08/2019 3:26 PM [employer] [facility]) Antithrombin III 50.0 (L) 80.0 - 120.0 % [facility] Specimen Blood Narrative Performed At Prior to Initiating Heparin [facility] Performing Organization Address [facility] Number [address] [facility] * Prepare Leuko-Red RBC (11/08/2019 2:15 PM COLD ROLL PACKER SHEET IRON) CROSSMATCH COMPATIBLE SAFETRACE TX Unit ABO A Neg SAFETRACE TX UNIT NUMBER [id number] SAFETRACE TX Status RETURNED FROM ISSUE SAFETRACE TX Blood Bank Product RED BLOOD CELLS SAFETRACE TX PRODUCT CODE [id number] SAFETRACE TX CROSSMATCH COMPATIBLE SAFETRACE TX Unit ABO A Neg SAFETRACE TX UNIT NUMBER [id number] SAFETRACE TX Status RETURNED FROM ISSUE SAFETRACE TX Blood Bank Product RED BLOOD CELLS SAFETRACE TX PRODUCT CODE [id number] SAFETRACE TX Specimen Other Performing Organization Address [facility] Number SAFETRACE TX * POC ACTIVATED CLOTTING TIME (11/08/2019 12:44 PM COLD ROLL PACKER SHEET IRON) Only the most recent of 3 results within the time period is included. Activated Clotting Time 263Comment: Reference Range: sec [facility] 74-137 seconds, [facility] Baseline/TESTED AT [address] [id number] Specimen Blood Performing Organization Address [facility]/[address] [phone] [address] * Transesophageal echo (11/08/2019 10:49 AM COLD ROLL PACKER SHEET IRON) Ejection Fraction [facility] Specimen Narrative Performed At Transesophageal Echocardiography Report (SILVIANO) [facility] Jillian [facility] Demographics [facility] Patient Name Stephanie MUNOZ ate of Study 11/08/2019 OSMEL [id number] GenderMale Visit Number [id number] [facility] [id number] Room Number 1427 Number Date of Birth1930 Ref erring Physician Adam Wynne MD Age89 year(s) Campus Coordinator Gorge williamson MD Physician Procedure Type of Study SILVIANO procedure:TRANSESOPHA GEAL ECHO Indications:TAVR. Clinical History A-FIB,DM,HLD,HTN Height: 68 inches Weight: 73.48 kg (162 lbs) BSA: 1.87 m^2 BMI: 24.63 kg/m^2 HR: 109 bpm BP: 159/91 mmHg Summary Procedural SILVIANO to guide TAVR procedure Pre procedural SILVIANO 1. Severe aortic stenosis. AoV area at rest by continuity equation is in the range of 0.6 cm2. AoV resting dimen sionless obstructive index (DOI) = 0.14. Mild aortic regurgitation. Severe AoV cusp thickening and calcification. 2. Global LV systolic function moderate ly reduced. Global RV systolic function is moderately depressed. 3. A small posterior pericardial effusi on is present. Intra and Post procedural SILVIANO 1. Successfully deployed TAVR core Valv e with residual trivial AR. 2. Stable LV and RV systolic function. 3. Stable small pericardial effusion. Previous Study Procedural SILVIANO to guide TAVR procedure. Signature Findings Left The left ventricle is chamber size is normal. All of the LV Ventriclesegments are moderatel y hypokinetic. Global LV systolic function mo derately reduced . Left AtriumLA size is enlarged. No evidence of left atrial or left atrial appe ndage thrombus. RightRV chamber size is normal. Global RV systolic function is Ventriclemoderately depressed. Right Atrium Right atrium dilated. Aortic Valve Mild aortic regurgitation. Severe AoV cusp thickening and calcificati on. Severe aortic stenosis. AoV area at rest by continuity equation is in the range of 0.6 cm2. AoV resting dimensionle ss obstructive index (DOI) = 0.14. Mitral Valve Mild mitral annular calcif ication. Mild MV leaflet thickening. Dxoj-vu-zymhexjy mitral regurgitation. TricuspidMild tricuspid regurgi tation. Valve Pulmonic Normal PV structure an d function by limited views and ValveDoppler. PericardiumA small posterior perica rdial effusion is present . Procedure Note Interface, External Ris In - 11/11/2019 11:36 AM C[employer] RO[employer] P[employer] SHE[employer] IRON Transesophageal Echocardiography Report (SILVIANO) Demographics Patient Name BREANA, Date of Study 11/08/2019 OSMEL Gender Male Visit Number [id number] Race Unknown Room Number 1427 Number Date of 1930 Referring Physician Adam Wynne MD Age 89 year(s) Campus Coordinator Gorge Jaeger Interpreting Sameer Eric MD Physician Procedure Type of Study SILVIANO procedure:TRANSESOPHAGEAL ECHO Indications:TAVR. Clinical History A-FIB,DM,HLD,HTN Height: 68 inches Weight: 73.48 kg (162 lbs) BSA: 1.87 m^2 BMI: 24.63 kg/m^2 HR: 109 bpm BP: 159/91 mmHg Summary Procedural SILVIANO to guide TAVR procedure Pre procedural SILVIANO 1. Severe aortic stenosis. AoV area at rest by continuity equation is in the range of 0.6 cm2. AoV resting dimensionless obstructive index (DOI) = 0.14. Mild aortic regurgitation. Severe AoV cusp thickening and calcification. 2. Global LV systolic function moderately reduced. Global RV systolic function is moderately depressed. 3. A small posterior pericardial effusion is present. Intra and Post procedural SILVIANO 1. Successfully deployed TAVR core Valve with residual trivial AR. 2. Stable LV and RV systolic function. 3. Stable small pericardial effusion. Previous Study Procedural SILVIANO to guide TAVR procedure. Signature Findings Left The left ventricle is chamber size is normal. All of the LV Ventricle segments are moderately hypokinetic. Global LV systolic function moderately reduced . Left Atrium LA size is enlarged. No evidence of left atrial or left atrial appendage thrombus. Right RV chamber size is normal. Global RV systolic function is Ventricle moderately depressed. Right Atrium Right atrium dilated. Aortic Valve Mild aortic regurgitation. Severe AoV cusp thickening and calcification. Severe aortic stenosis. AoV area at rest by continuity equation is in the range of 0.6 cm2. AoV resting dimensionless obstructive index (DOI) = 0.14. Mitral Valve Mild mitral annular calcification. Mild MV leaflet thickening. Pdhc-rr-eenopoqj mitral regurgitation. Tricuspid Mild tricuspid regurgitation. Valve Pulmonic Normal PV structure and function by limited views and Valve Doppler. Pericardium A small posterior pericardial effusion is present . Performing Organization Address [facility] Number [facility]ART[facility] MKCKESSON CPACS * ABORH, manual (11/08/2019 3:21 AM COLD ROLL PACKER SHEET IRON) Only the most recent of 2 results within the time period is included. ABO Grouping A [facility] Rh Factor NEG [facility] Specimen Blood Performing Organization Address [address] * Type and screen, automated (11/08/2019 2:26 AM COLD ROLL PACKER SHEET IRON) Ab Scrn NEGATIVEComment: done on echo2 [facility] Specimen Blood Performing Organization Address [place] [address] [place] [address] * B-type Natriuretic Factor (BNP) (11/08/2019 2:26 AM COLD ROLL PACKER SHEET IRON) Only the most recent of 2 results within the time period is included. BNP 2,300 (H) 0 - 100 pg/mL [facility] H [facility] Specimen Blood Performing Organization Address [facility] one [address] [address] [facility] * PULMONARY FUNCTION - SCAN (11/05/2019 6:40 AM COLD ROLL PACKER SHEET IRON) Narrative Performed At This result has an attachment that is n ot available. * CTA chest (11/04/2019 10:49 AM COLD ROLL PACKER SHEET IRON) Specimen Narrative Performed At Addendum Begins [employer] I/O REPORT STATUS:A ADDENDUM: Study reviewed by radiology. Agree with the nonvascular findings as described below. Multiple enlarged medi astinal nodes are present, including prevascular, paratracheal, castellanos bcarinal, and bilateral perihilar regions, neoplasm cannot be e xcluded. Consider PET/CT or bronchoscopy for biopsy. Signed: Reji Fish MD Report Verified Date/Time: 9 09:54:17 Reading Location: [place] [id number] Angio Bod y Reading Room Addendum Ends FINAL REPORT CT angiography of the thoracoabdominal aorta and pelvic arteries, 04 November 2019 INDICATION: This is a 89 year old male with a diagnosis of aortic stenosis, presents for preprocedure TAV R assessment This study is performed in an attempt to avoid an inv asive procedure. TECHNIQUE: Spiral acquisition before an d during intravenous contrast administration using a Mekhi multidet gabriella CT scanner. Images were obtained before and during the dynamic passage of intravenous contrast material.Multi-planar 3-D volume-rendering reconstruction was performed using an independent work station interactively by the interpreting physician as well as the 3 -D specialist for optimal visualisation of the thoracoabdominal a brianna, the pelvic arteries as well as its proximal branches. Please refer to the contrast sheet scan helen in the [employer] system for the amount and route of contrast given. This exam was performed according to ou r departmental dose-optimisation programme, which incl udes automated exposure control, adjustment of the mA and/or kV according to patient size and/or use of iterative reconstruction technique. Dose modulation, iterative reconstruction, and/or weight based adjustment of the mA/kV was utilized to reduce the radiation do se to as low as reasonably achievable. FINDINGS: VASCULAR: The pericardium appears unremarkable. N o pericardial effusion is identified. The central pulmonary artery is normal in calibre. The cardiac chambers demonstrate normal atrioventricular and ventriculoarterial concordance, and sys temic and pulmonary venous return. The left ventricle is normal in size. M itral annular calcification is identified a predominantly in the poste rior mitral valve annulus. Left atrial enlargement is identified. Hypodensity is identified in the left atrial appendage that may repr esents slow flow versus thrombus; delay images were not obtaine d in this dedicated TAVR examination. Coronary artery origins are normal. Cor onary artery calcification is identified in the left main coronary ar pippa, proximal and mid LAD, proximal left circumflex artery and sca ttered along the pathway of the RCA. Patient has a diagnosis of aortic steno sis.The aortic valve is tricuspid. The aortic Agatston score is 4780.The aortic valve area is 57 mm2. The location of aortic valvu lar calcification can be seen in reformatted data set sent to PACS. Regarding the aorta, the aortic root an d ascending thoracic aorta is mild calcification identified. The [place] sverse arch and descending thoracic aorta has mild to moderate ned cific and noncalcific atherosclerosis identified. Mild to mod erate circumferential calcification is identified in the abdo farooq aorta. No ectasia or aneurysmal dilation is id entified. There is no evidence of acute aortic pa thology, specifically, there is no dissection, intramural hematoma, or contained rupture. The arch vessel branching pattern is no rmal and the visualized arch vessels are widely patent proximally. T he left subclavian artery, at image 29 it measures 7 to [address], with mild calcification identified. Mild tortuosity is seen. Mi ld calcification and tortuosity is is also identified in the right subclavian artery, at image 35, it measures 7 to 8 mm in diam eter. There are single left and 2 right renal arteries identified. Mild to moderate calcification is seen in the p roximal right main renal artery and remainder of the the right r enal arteries widely patent. The inferior accessory right renal melony ry is widely patent. Focal calcification is also seen in the proxi mal left renal artery, with mild to moderate narrowing present. Rem ainder of the the left renal artery is widely patent. The coeliac axis and SMA are widely pat ent. The MARCELL is patent. Calcification is is seen in the splenic artery. The common iliac, external iliac, commo n femoral, and the visualized superficial femoral arteries, bilateral ly, are patent with no obstructive lesion identified. Scattere d nonobstructive calcification is present. Dimensions that may be helpful for TAVR as follows: Mild calcification is seen in the aorti c root and ascending thoracic aorta. The major and minor aortic annulus diam eter measures 29.9 and 24.0 mm, respectively. The aortic annulus pe rimeter measured 86 mm and the cross-sectional area measures 577 mm2. The aortic annulus diameter at the traditional LVOT and coronal LVOT m easures 22.8 and 24.3 mm, respectively. For reference purpose, per BERUMEN S3 b aure, recommendation are as follows: CT area between 273 to 345 mm2 (20 mm valve); 338 to 430 mm2 (23 mm valve); 430 to 546 mm2 (26 mm va lve); 540 to 683 mm2 (29 mm valve). For reference purpose, per CoreValve Ev marcy bill, recommendation are as follows: CT perim eter between 56.5-62.8 mm (23 mm valve); 62.8-72.3 mm (26 mm valve); 72.3-81.7 mm (29 mm valve); and 81.7-94.2. mm (34 mm valve). For reference purpose, per Mary Edge b aure, recommendation are as follows: 23mm valve is recommended for CT perimeter between 62.8-72.3 mm; diameter between 20-23 mm; or area between 314-415.5 mm2. For 25mm valve, it is recommended for CT pe rimeter between 72.3-78.5 mm; diameter between 23-25 mm; or area betw een 415.5-490.9 mm2.For 27mm valve, it is recommended for CT perimet er between 78.5-84.8 mm; diameter between 25-27 mm; or area betw een 490.9-572.6 mm2. Agatston Score is 4780. The aortic valv e area is 57 mm2. The distance between the take off of th e RCA and the annulus (systole): 13.6 mm The distance between the take off of th e LM and the annulus (systole): 16.5 mm The sinus of Valsalva diameter, RCC (sy stole): 33.7 mm The sinus of Valsalva diameter, LCC (sy stole): 35.9 mm The sinus of Valsalva diameter, NCC (sy stole): 35.6 mm The sinotubular junction measures, 29.2 x 32.1 mm. The aortic root angulation measures 60. 2 degrees. The minimal and perpendicular abdominal aortic diameter measure 16.3 and 16.9 mm, respectively. There is no evidence of thoracoabdomina l aortic aneurysm or stent placement present. The minimum and the perpendicular left common iliac artery measures 10.6 and 11.3 mm, respectively with mil dtortuosity and mild calcific atherosclerosis present. The m inimum and the perpendicular left external iliac artery measures 7.8 and 8.5 mm, respectively with mildtortuosity and minimalcalci fic atherosclerosis present. The minimum and the perpendicular left femo ral artery measures 5.6 and 5.9 mm, respectively with mildtortu osity and medj-qx-hhheqxml calcific atherosclerosis present. The minimum and the perpendicular right common iliac artery measures 10.2 and 10.4 mm, respectively with mil o-ov-xigvccnjquddxvbugy and lebc-uq-wuqdkuappdzdsesb atheroscle rosis present. The minimum and the perpendicular rightexternal perry ac artery measures 8.1 and 83 mm, respectively with wulx-uq-mbggxeio tortuosity and mildcalcific atherosclerosis present. The minimum an d the perpendicular right femoral artery measures 8.3 and 8.3 mm, respectively with mild tortuosity and mildcalcific atheros clerosis present. NON-VASCULAR: The visualised thyroid gland is unremar kable. A 1.5 hypodensity is identified in the right thyroid lobe, i mage 31. This can be further assessed interactively by dedicated thy roid ultrasound scan. The chest wall and mediastinum appear n ormal. There are multiple lymph nodes identified in the mediastin um, the number are more than expected, and some of them measures up to 1.6 cm in diameter, for example at image 63. No prior examinati on is available for comparison. An addendum will be dictate d thereafter regarding optimal recommendation including interval follo w-up to monitor stability. In the lung windows, no endobronchial l esion is seen. Bibasal pleural effusions identified. Some subsegmental atelectatic changes are seen. Pulmonary vasculature is prominent ramon cating underlying cardiac congestion, with associated patchy grou ndglass opacities. Overall, no suspicious pulmonary nodule is identified. Calcified granuloma is identified in the left zachery g at image 123 indicating prior granulomatous disease. In the abdomen, the liver and spleen ap pears unremarkable. The liver edge is smooth. No abnormal enhancing s tructure is identified. The adrenal glands are not enlarged. Ga llstone is seen in the gallbladder with no wall thickening maryan ntified. The pancreas appears unremarkable. No acute renal pathology seen and no hy dronephrosis or perirenal fluid collection is identified. Nonobst ructive renal stones identified in the pelvis of the right k cha, at image 73, measure 1 cm in diameter. Multiple renal cysts id entified in both kidneys, too many to described. Majority of them and no enhancement after contrast administration. In addition, there is l inear calcification identified in one of the hypodensity seen in the r ight kidney in the precontrast series at image 69. Bowel is not well assessed by CT angiog mir as enteric contrast is not given. No bowel dilation is seen. S cattered colonic diverticulum is seen in the distal colon with no inf lammatory changes identified. The prostate gland and the bladder appe ars unremarkable. No significant retroperitoneal adenopathy is seen. No free air free flow seen abdomen and pelvis. Mild presacral oedema is identified and trace free fluid is i dentified in dependent portion of the pelvis and may reflect underlyin g cardiac congestion. Superficial defect is identified in the right groin suggesting recent catheterization. In the bony windows, no acute bony path ology is identified. Some degenerative changes is noted. CONCLUSIONS: 1. Patient has a diagnosis of aorti c stenosis. The aortic valve is tricuspid.The aortic Agatston Score is 4780and aortic valve area is 57 mm2. Mitral annular calcification is seen, predominantly in the Mild calcification seen in the aortic r oot/ascending thoracic aorta. Dimensions that may be helpful for TAVR as described above. 2.Coronary artery origins are brigido l with scattered calcification seen in the left and the right coronary territories. Hypodensity is identified in the left a trial appendage that may represents slow flow versus thrombus; d elay images were not obtained in this dedicated TAVR examination. Cor relate with echocardiography. 3.The central pulmonary artery is n ormal in calibre. Bibasal pleural effusion is seen right greater than left and pulmonary vasculature is prominent ramon cating underlying cardiac congestion. Evidence of prior granulomatous disease . 4.Other findings as described above . A 1.5 hypodensity is identified in the right thyroid lobe, image 31. This can be further assessed interactiv letty by dedicated thyroid ultrasound scan. 5.An addendum will be dictated rega rding the non-vascular findings by the [employer] Radiologist. 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 Agree with the nonvascular findings as described below. Multiple enlarged mediastinal nodes are present, including prevascular, paratracheal, subcarinal, and bilateral perihilar regions, neoplasm cannot be excluded. Consider PET/CT or bronchoscopy for biopsy. Signed: Reji Fish MD Report Verified Date/Time: 11/05/2019 09:54:17 Reading Location: [facility] P048 Angio Body Reading Room Addendum Ends FINAL REPORT CT angiography of the thoracoabdominal aorta and pelvic arteries, 04 November 2019 INDICATION: This is a 89 year old male with a diagnosis of aortic stenosis, presents for preprocedure TAVR assessment This study is performed in an attempt to avoid an invasive procedure. TECHNIQUE: Spiral acquisition before and during intravenous contrast administration using a Mekhi multidetector CT scanner. Images were obtained before and during the dynamic passage of intravenous contrast material. Multi-planar 3-D volume-rendering reconstruction was performed using an independent workstation interactively by the interpreting physician as well as the 3-D specialist for optimal visualisation of the thoracoabdominal aorta, the pelvic arteries as well as its proximal branches. Please refer to the contrast sheet scanned in the EPIC system for the amount and route of contrast given. This exam was performed according to our departmental dose-optimisation programme, which includes automated exposure control, adjustment of the mA and/or kV according to patient size and/or use of iterative reconstruction technique. Dose modulation, iterative reconstruction, and/or weight based adjustment of the mA/kV was utilized to reduce the radiation dose to as low as reasonably achievable. FINDINGS: VASCULAR: The pericardium appears unremarkable. No pericardial effusion is identified. The central pulmonary artery is normal in calibre. The cardiac chambers demonstrate normal atrioventricular and ventriculoarterial concordance, and systemic and pulmonary venous return. The left ventricle is normal in size. Mitral annular calcification is identified a predominantly in the posterior mitral valve annulus. Left atrial enlargement is identified. Hypodensity is identified in the left atrial appendage that may represents slow flow versus thrombus; delay images were not obtained in this dedicated TAVR examination. Coronary artery origins are normal. Coronary artery calcification is identified in the left main coronary artery, proximal and mid LAD, proximal left circumflex artery and scattered along the pathway of the RCA. Patient has a diagnosis of aortic stenosis. The aortic valve is tricuspid. The aortic Agatston score is 4780. The aortic valve area is 57 mm2. The location of aortic valvular calcification can be seen in reformatted data set sent to PACS. Regarding the aorta, the aortic root and ascending thoracic aorta is mild calcification identified. The transverse arch and descending thoracic aorta has mild to moderate calcific and noncalcific atherosclerosis identified. Mild to moderate circumferential calcification is identified in the abdominal aorta. No ectasia or aneurysmal dilation is identified. There is no evidence of acute aortic pathology, specifically, there is no dissection, intramural hematoma, or contained rupture. The arch vessel branching pattern is normal and the visualized arch vessels are widely patent proximally. The left subclavian artery, at image 29 it measures 7 to 8 mm in diameter, with mild calcification identified. Mild tortuosity is seen. Mild calcification and tortuosity is is also identified in the right subclavian artery, at image 35, it measures 7 to 8 mm in diameter. There are single left and 2 right renal arteries identified. Mild to moderate calcification is seen in the proximal right main renal artery and remainder of the the right renal arteries widely patent. The inferior accessory right renal artery is widely patent. Focal calcification is also seen in the proximal left renal artery, with mild to moderate narrowing present. Remainder of the the left renal artery is widely patent. The coeliac axis and SMA are widely patent. The MARCELL is patent. Calcification is is seen in the splenic artery. The common iliac, external iliac, common femoral, and the visualized superficial femoral arteries, bilaterally, are patent with no obstructive lesion identified. Scattered nonobstructive calcification is present. Dimensions that may be helpful for TAVR as follows: Mild calcification is seen in the aortic root and ascending thoracic aorta. The major and minor aortic annulus diameter measures 29.9 and 24.0 mm, respectively. The aortic annulus perimeter measured 86 mm and the cross-sectional area measures 577 mm2. The aortic annulus diameter at the traditional LVOT and coronal LVOT measures 22.8 and 24.3 mm, respectively. For reference purpose, per BERUMEN S3 brochure, recommendation are as follows: CT area between 273 to 345 mm2 (20 mm valve); 338 to 430 mm2 (23 mm valve); 430 to 546 mm2 (26 mm ramírez ve); 540 to 683 mm2 (29 mm valve). For reference purpose, per CoreValve Evolut R brochure, recommendation are as follows: CT perimeter between 56.5-62.8 mm (23 mm valve); 62.8-72.3 mm (26 mm valve); 72.3-81.7 mm (29 mm valve); and 81.7-94.2. mm (34 mm valve). For reference purpose, per [facility] [employer] brochure, recommendation are as follows: 23mm valve is recommended for CT perimeter between 62.8-72.3 mm; diameter between 20-23 mm; or area between 314-415.5 mm2. For 25mm valve, it is recommended for CT per imeter between 72.3-78.5 mm; diameter between 23-25 mm; or area between 415.5-490.9 mm2. For 27mm valve, it is recommended for CT perimeter between 78.5-84.8 mm; diameter between 25-27 mm; or area between 490.9-572.6 mm2. Agatston Score is 4780. The aortic valve area is 57 mm2. The distance between the take off of the RCA and the annulus (systole): 13.6 mm The distance between the take off of the LM and the annulus (systole): 16.5 mm The sinus of Valsalva diameter, RCC (systole): 33.7 mm The sinus of Valsalva diameter, LCC (systole): 35.9 mm The sinus of Valsalva diameter, NCC (systole): 35.6 mm The sinotubular junction measures, 29.2 x 32.1 mm. The aortic root angulation measures 60.2 degrees. The minimal and perpendicular abdominal aortic diameter measure 16.3 and 16.9 mm, respectively. There is no evidence of thoracoabdominal aortic aneurysm or stent placement present. The minimum and the perpendicular left common iliac artery measures 10.6 and 11.3 mm, respectively with mild tortuosity and mild calcific atherosclerosis present. The minimum and the perpendicular left external iliac artery measures 7.8 and 8.5 mm, respectively with mild tortuosity and minimal calcific atherosclerosis present. The minimum and the perpendicular left femoral artery measures 5.6 and 5.9 mm, respectively with mild tortuosi ty and ypaw-ms-xemfnunn calcific atherosclerosis present. The minimum and the perpendicular right common iliac artery measures 10.2 and 10.4 mm, respectively with mild -to-moderate tortuosity and pxyu-qy-gytylhsk calcific atherosclerosis present. The minimum and the perpendicular right external iliac artery measures 8.1 and 83 mm, respectively with fcth-cg-pxoaqetz tortuosity and mild calcific atherosclerosis present. The minimum and the perpendicular right femoral artery measures 8.3 and 8.3 mm, respectively with mild tortuosity and mild calcific atherosclerosis present. NON-VASCULAR: The visualised thyroid gland is unremarkable. A 1.5 hypodensity is identified in the right thyroid lobe, image 31. This can be further assessed interactively by dedicated thyroid ultrasound scan. The chest wall and mediastinum appear normal. There are multiple lymph nodes identified in the mediastinum, the number are more than expected, and some of them measures up to 1.6 cm in diameter, for example at image 63. No prior examination is available for comparison. An addendum will be dictated thereafter regarding optimal recommendation including interval follow-up to monitor stability. In the lung windows, no endobronchial lesion is seen. Bibasal pleural effusions identified. Some subsegmental atelectatic changes are seen. Pulmonary vasculature is prominent indicating underlying cardiac congestion, with associated patchy groundglass opacities. Overall, no suspicious pulmonary nodule is identified. Calcified granuloma is identified in the left lung at image 123 indicating prior granulomatous disease. In the abdomen, the liver and spleen appears unremarkable. The liver edge is smooth. No abnormal enhancing structure is identified. The adrenal glands are not enlarged. Gallstone is seen in the gallbladder with no wall thickening identified. The pancreas appears unremarkable. No acute renal pathology seen and no hydronephrosis or perirenal fluid collection is identified. Nonobstructive renal stones identified in the pelvis of the right kidney, at image 73, measure 1 cm in diameter. Multiple renal cysts identified in both kidneys, too many to described. Majority of them and no enhancement after contrast administration. In addition, there is linear calcification identified in one of the hypodensity seen in the right kidney in the precontrast series at image 69. Bowel is not well assessed by CT angiography as enteric contrast is not given. No bowel dilation is seen. Scattered colonic diverticulum is seen in the distal colon with no inflammatory changes identified. The prostate gland and the bladder appears unremarkable. No significant retroperitoneal adenopathy is seen. No free air free flow seen abdomen and pelvis. Mild presacral oedema is identified and trace free fluid is identified in dependent portion of the pelvis and may reflect underlying cardiac congestion. Superficial defect is identified in the right groin suggesting recent catheterization. In the bony windows, no acute bony pathology is identified. Some degenerative changes is noted. CONCLUSIONS: 1. Patient has a diagnosis of aortic s tenosis. The aortic valve is tricuspid. The aortic Agatston Score is 4780 and aortic valve area is 57 mm2. Mitral annular calcification is seen, predominantly in the Mild calcification seen in the aortic root/ascending thoracic aorta. Dimensions that may be helpful for TAVR as described above. 2. Coronary artery origins are normal w ith scattered calcification seen in the left and the right coronary territories. Hypodensity is identified in the left atrial appendage that may represents slow flow versus thrombus; delay images were not obtained in this dedicated TAVR examination. Correlate with echocardiography. 3. The central pulmonary artery is norm al in calibre. Bibasal pleural effusion is seen right greater than left and pulmonary vasculature is prominent indicating underlying cardiac congestion. Evidence of prior granulomatous disease. 4. Other findings as described above. A 1.5 hypodensity is identified in the right thyroid lobe, image 31. This can be further assessed interactively by dedicated thyroid ultrasound scan. 5. An addendum will be dictated regardi ng the non-vascular findings by the [employer] Radiologist. Signed: Tyler Chin MD Report Verified Date/Time: 11/04/2019 11:43:12 Performing Organization Address City/State/Zipcode Ph one Number GE RIS * CTA abdomen & pelvis (11/04/2019 10:49 AM [employer]) Specimen Narrative Performed At Addendum Begins [facility] RIS REPORT STATUS:A ADDENDUM: Study reviewed by radiology. Agree with the nonvascular findings as described below. Multiple enlarged medi astinal nodes are present, including prevascular, paratracheal, castellanos bcarinal, and bilateral perihilar regions, neoplasm cannot be e xcluded. Consider PET/CT or bronchoscopy for biopsy. Signed: Reji Fish MD Report Verified Date/Time: 9 09:54:17 Reading Location: [facility] P048 Angio Bod y Reading Room Addendum Ends FINAL REPORT CT angiography of the thoracoabdominal aorta and pelvic arteries, 04 November 2019 INDICATION: This is a 89 year old male with a diagnosis of aortic stenosis, presents for preprocedure TAV R assessment This study is performed in an attempt to avoid an inv asive procedure. TECHNIQUE: Spiral acquisition before an d during intravenous contrast administration using a Mekhi multidet gabriella CT scanner. Images were obtained before and during the dynamic passage of intravenous contrast material.Multi-planar 3-D volume-rendering reconstruction was performed using an independent work station interactively by the interpreting physician as well as the 3 -D specialist for optimal visualisation of the thoracoabdominal a brianna, the pelvic arteries as well as its proximal branches. Please refer to the contrast sheet scan helen in the EPIC system for the amount and route of contrast given. This exam was performed according to ou r departmental dose-optimisation programme, which incl udes automated exposure control, adjustment of the mA and/or kV according to patient size and/or use of iterative reconstruction technique. Dose modulation, iterative reconstruction, and/or weight based adjustment of the mA/kV was utilized to reduce the radiation do se to as low as reasonably achievable. FINDINGS: VASCULAR: The pericardium appears unremarkable. N o pericardial effusion is identified. The central pulmonary artery is normal in calibre. The cardiac chambers demonstrate normal atrioventricular and ventriculoarterial concordance, and sys temic and pulmonary venous return. The left ventricle is normal in size. M itral annular calcification is identified a predominantly in the poste rior mitral valve annulus. Left atrial enlargement is identified. Hypodensity is identified in the left atrial appendage that may repr esents slow flow versus thrombus; delay images were not obtaine d in this dedicated TAVR examination. Coronary artery origins are normal. Cor onary artery calcification is identified in the left main coronary ar pippa, proximal and mid LAD, proximal left circumflex artery and sca ttered along the pathway of the RCA. Patient has a diagnosis of aortic steno sis.The aortic valve is tricuspid. The aortic Agatston score is 4780.The aortic valve area is 57 mm2. The location of aortic valvu lar calcification can be seen in reformatted data set sent to PACS. Regarding the aorta, the aortic root an d ascending thoracic aorta is mild calcification identified. The [place] sverse arch and descending thoracic aorta has mild to moderate ned cific and noncalcific atherosclerosis identified. Mild to mod erate circumferential calcification is identified in the abdo farooq aorta. No ectasia or aneurysmal dilation is id entified. There is no evidence of acute aortic pa thology, specifically, there is no dissection, intramural hematoma, or contained rupture. The arch vessel branching pattern is no rmal and the visualized arch vessels are widely patent proximally. T he left subclavian artery, at image 29 it measures 7 to [address], with mild calcification identified. Mild tortuosity is seen. Mi ld calcification and tortuosity is is also identified in the right subclavian artery, at image 35, it measures 7 to 8 mm in diam eter. There are single left and 2 right renal arteries identified. Mild to moderate calcification is seen in the p roximal right main renal artery and remainder of the the right r enal arteries widely patent. The inferior accessory right renal melony ry is widely patent. Focal calcification is also seen in the proxi mal left renal artery, with mild to moderate narrowing present. Rem ainder of the the left renal artery is widely patent. The coeliac axis and SMA are widely pat ent. The MARCELL is patent. Calcification is is seen in the splenic artery. The common iliac, external iliac, commo n femoral, and the visualized superficial femoral arteries, bilateral ly, are patent with no obstructive lesion identified. Scattere d nonobstructive calcification is present. Dimensions that may be helpful for TAVR as follows: Mild calcification is seen in the aorti c root and ascending thoracic aorta. The major and minor aortic annulus diam eter measures 29.9 and 24.0 mm, respectively. The aortic annulus pe rimeter measured 86 mm and the cross-sectional area measures 577 mm2. The aortic annulus diameter at the traditional LVOT and coronal LVOT m easures 22.8 and 24.3 mm, respectively. For reference purpose, per [employer] S3 nichole looney, recommendation are as follows: CT area between 273 to 345 mm2 (20 mm valve); 338 to 430 mm2 (23 mm valve); 430 to 546 mm2 (26 mm va lve); 540 to 683 mm2 (29 mm valve). For reference purpose, per [employer] marcy bill, recommendation are as follows: CT perim eter between 56.5-62.8 mm (23 mm valve); 62.8-72.3 mm (26 mm valve); 72.3-81.7 mm (29 mm valve); and 81.7-94.2. mm (34 mm valve). For reference purpose, per [facility] nichole looney, recommendation are as follows: 23mm valve is recommended for CT perimeter between 62.8-72.3 mm; diameter between 20-23 mm; or area between 314-415.5 mm2. For 25mm valve, it is recommended for CT pe rimeter between 72.3-78.5 mm; diameter between 23-25 mm; or area betw een 415.5-490.9 mm2.For 27mm valve, it is recommended for CT perimet er between 78.5-84.8 mm; diameter between 25-27 mm; or area betw een 490.9-572.6 mm2. Agatston Score is 4780. The aortic valv e area is 57 mm2. The distance between the take off of th e RCA and the annulus (systole): 13.6 mm The distance between the take off of th e LM and the annulus (systole): 16.5 mm The sinus of Valsalva diameter, RCC (sy stole): 33.7 mm The sinus of Valsalva diameter, LCC (sy stole): 35.9 mm The sinus of Valsalva diameter, NCC (sy stole): 35.6 mm The sinotubular junction measures, 29.2 x 32.1 mm. The aortic root angulation measures 60. 2 degrees. The minimal and perpendicular abdominal aortic diameter measure 16.3 and 16.9 mm, respectively. There is no evidence of thoracoabdomina l aortic aneurysm or stent placement present. The minimum and the perpendicular left common iliac artery measures 10.6 and 11.3 mm, respectively with mil dtortuosity and mild calcific atherosclerosis present. The m inimum and the perpendicular left external iliac artery measures 7.8 and 8.5 mm, respectively with mildtortuosity and minimalcalci fic atherosclerosis present. The minimum and the perpendicular left femo ral artery measures 5.6 and 5.9 mm, respectively with mildtortu osity and glia-td-lnuhxzzq calcific atherosclerosis present. The minimum and the perpendicular right common iliac artery measures 10.2 and 10.4 mm, respectively with mil w-in-pijwwrdnobdsqnejtk and gilo-fy-cdqetvdouwbsrtrt atheroscle rosis present. The minimum and the perpendicular rightexternal perry ac artery measures 8.1 and 83 mm, respectively with sidh-xl-xgiqksfx tortuosity and mildcalcific atherosclerosis present. The minimum an d the perpendicular right femoral artery measures 8.3 and 8.3 mm, respectively with mild tortuosity and mildcalcific atheros clerosis present. NON-VASCULAR: The visualised thyroid gland is unremar kable. A 1.5 hypodensity is identified in the right thyroid lobe, i mage 31. This can be further assessed interactively by dedicated thy roid ultrasound scan. The chest wall and mediastinum appear n ormal. There are multiple lymph nodes identified in the mediastin um, the number are more than expected, and some of them measures up to 1.6 cm in diameter, for example at image 63. No prior examinati on is available for comparison. An addendum will be dictate d thereafter regarding optimal recommendation including interval follo w-up to monitor stability. In the lung windows, no endobronchial l esion is seen. Bibasal pleural effusions identified. Some subsegmental atelectatic changes are seen. Pulmonary vasculature is prominent ramon cating underlying cardiac congestion, with associated patchy grou ndglass opacities. Overall, no suspicious pulmonary nodule is identified. Calcified granuloma is identified in the left zachery g at image 123 indicating prior granulomatous disease. In the abdomen, the liver and spleen ap pears unremarkable. The liver edge is smooth. No abnormal enhancing s tructure is identified. The adrenal glands are not enlarged. Ga llstone is seen in the gallbladder with no wall thickening maryan ntified. The pancreas appears unremarkable. No acute renal pathology seen and no hy dronephrosis or perirenal fluid collection is identified. Nonobst ructive renal stones identified in the pelvis of the right delmar eubanks, at image 73, measure 1 cm in diameter. Multiple renal cysts id entified in both kidneys, too many to described. Majority of them and no enhancement after contrast administration. In addition, there is l inear calcification identified in one of the hypodensity seen in the r ight kidney in the precontrast series at image 69. Bowel is not well assessed by CT angiog mir as enteric contrast is not given. No bowel dilation is seen. S cattered colonic diverticulum is seen in the distal colon with no inf lammatory changes identified. The prostate gland and the bladder appe ars unremarkable. No significant retroperitoneal adenopathy is seen. No free air free flow seen abdomen and pelvis. Mild presacral oedema is identified and trace free fluid is i dentified in dependent portion of the pelvis and may reflect underlyin g cardiac congestion. Superficial defect is identified in the right groin suggesting recent catheterization. In the bony windows, no acute bony path ology is identified. Some degenerative changes is noted. CONCLUSIONS: 1. Patient has a diagnosis of aorti c stenosis. The aortic valve is tricuspid.The aortic Agatston Score is 4780and aortic valve area is 57 mm2. Mitral annular calcification is seen, predominantly in the Mild calcification seen in the aortic r oot/ascending thoracic aorta. Dimensions that may be helpful for TAVR as described above. 2.Coronary artery origins are brigido l with scattered calcification seen in the left and the right coronary territories. Hypodensity is identified in the left a trial appendage that may represents slow flow versus thrombus; d elay images were not obtained in this dedicated TAVR examination. Cor relate with echocardiography. 3.The central pulmonary artery is n ormal in calibre. Bibasal pleural effusion is seen right greater than left and pulmonary vasculature is prominent ramon cating underlying cardiac congestion. Evidence of prior granulomatous disease . 4.Other findings as described above . A 1.5 hypodensity is identified in the right thyroid lobe, image 31. This can be further assessed interactiv letty by dedicated thyroid ultrasound scan. 5.An addendum will be dictated rega rding the non-vascular findings by the [employer] Radiologist. 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 Agree with the nonvascular findings as described below. Multiple enlarged mediastinal nodes are present, including prevascular, paratracheal, subcarinal, and bilateral perihilar regions, neoplasm cannot be excluded. Consider PET/CT or bronchoscopy for biopsy. Signed: Reji Fish MD Report Verified Date/Time: 11/05/2019 09:54:17 Reading Location: [facility] P048 Angio Body Reading Room Addendum Ends FINAL REPORT CT angiography of the thoracoabdominal aorta and pelvic arteries, 04 November 2019 INDICATION: This is a 89 year old male with a diagnosis of aortic stenosis, presents for preprocedure TAVR assessment This study is performed in an attempt to avoid an invasive procedure. TECHNIQUE: Spiral acquisition before and during intravenous contrast administration using a [employer]ek[employer] multidetector CT scanner. Images were obtained before and during the dynamic passage of intravenous contrast material. Multi-planar 3-D volume-rendering reconstruction was performed using an independent workstation interactively by the interpreting physician as well as the 3-D specialist for optimal visualisation of the thoracoabdominal aorta, the pelvic arteries as well as its proximal branches. Please refer to the contrast sheet scanned in the EPIC system for the amount and route of contrast given. This exam was performed according to our departmental dose-optimisation programme, which includes automated exposure control, adjustment of the mA and/or kV according to patient size and/or use of iterative reconstruction technique. Dose modulation, iterative reconstruction, and/or weight based adjustment of the mA/kV was utilized to reduce the radiation dose to as low as reasonably achievable. FINDINGS: VASCULAR: The pericardium appears unremarkable. No pericardial effusion is identified. The central pulmonary artery is normal in calibre. The cardiac chambers demonstrate normal atrioventricular and ventriculoarterial concordance, and systemic and pulmonary venous return. The left ventricle is normal in size. Mitral annular calcification is identified a predominantly in the posterior mitral valve annulus. Left atrial enlargement is identified. Hypodensity is identified in the left atrial appendage that may represents slow flow versus thrombus; delay images were not obtained in this dedicated TAVR examination. Coronary artery origins are normal. Coronary artery calcification is identified in the left main coronary artery, proximal and mid LAD, proximal left circumflex artery and scattered along the pathway of the RCA. Patient has a diagnosis of aortic stenosis. The aortic valve is tricuspid. The aortic Agatston score is 4780. The aortic valve area is 57 mm2. The location of aortic valvular calcification can be seen in reformatted data set sent to PACS. Regarding the aorta, the aortic root and ascending thoracic aorta is mild calcification identified. The transverse arch and descending thoracic aorta has mild to moderate calcific and noncalcific atherosclerosis identified. Mild to moderate circumferential calcification is identified in the abdominal aorta. No ectasia or aneurysmal dilation is identified. There is no evidence of acute aortic pathology, specifically, there is no dissection, intramural hematoma, or contained rupture. The arch vessel branching pattern is normal and the visualized arch vessels are widely patent proximally. The left subclavian artery, at image 29 it measures 7 to 8 mm in diameter, with mild calcification identified. Mild tortuosity is seen. Mild calcification and tortuosity is is also identified in the right subclavian artery, at image 35, it measures 7 to 8 mm in diameter. There are single left and 2 right renal arteries identified. Mild to moderate calcification is seen in the proximal right main renal artery and remainder of the the right renal arteries widely patent. The inferior accessory right renal artery is widely patent. Focal calcification is also seen in the proximal left renal artery, with mild to moderate narrowing present. Remainder of the the left renal artery is widely patent. The coeliac axis and SMA are widely patent. The MARCELL is patent. Calcification is is seen in the splenic artery. The common iliac, external iliac, common femoral, and the visualized superficial femoral arteries, bilaterally, are patent with no obstructive lesion identified. Scattered nonobstructive calcification is present. Dimensions that may be helpful for TAVR as follows: Mild calcification is seen in the aortic root and ascending thoracic aorta. The major and minor aortic annulus diameter measures 29.9 and 24.0 mm, respectively. The aortic annulus perimeter measured 86 mm and the cross-sectional area measures 577 mm2. The aortic annulus diameter at the traditional LVOT and coronal LVOT measures 22.8 and 24.3 mm, respectively. For reference purpose, per [employer] S[employer] brochure, recommendation are as follows: CT area between 273 to 345 mm2 (20 mm valve); 338 to 430 mm2 (23 mm valve); 430 to 546 mm2 (26 mm ramírez ve); 540 to 683 mm2 (29 mm valve). For reference purpose, per [employer] brochure, recommendation are as follows: CT perimeter between 56.5-62.8 mm (23 mm valve); 62.8-72.3 mm (26 mm valve); 72.3-81.7 mm (29 mm valve); and 81.7-94.2. mm (34 mm valve). For reference purpose, per [facility] [employer] brochure, recommendation are as follows: 23mm valve is recommended for CT perimeter between 62.8-72.3 mm; diameter between 20-23 mm; or area between 314-415.5 mm2. For 25mm valve, it is recommended for CT per imeter between 72.3-78.5 mm; diameter between 23-25 mm; or area between 415.5-490.9 mm2. For 27mm valve, it is recommended for CT perimeter between 78.5-84.8 mm; diameter between 25-27 mm; or area between 490.9-572.6 mm2. Agatston Score is 4780. The aortic valve area is 57 mm2. The distance between the take off of the RCA and the annulus (systole): 13.6 mm The distance between the take off of the LM and the annulus (systole): 16.5 mm The sinus of Valsalva diameter, RCC (systole): 33.7 mm The sinus of Valsalva diameter, LCC (systole): 35.9 mm The sinus of Valsalva diameter, NCC (systole): 35.6 mm The sinotubular junction measures, 29.2 x 32.1 mm. The aortic root angulation measures 60.2 degrees. The minimal and perpendicular abdominal aortic diameter measure 16.3 and 16.9 mm, respectively. There is no evidence of thoracoabdominal aortic aneurysm or stent placement present. The minimum and the perpendicular left common iliac artery measures 10.6 and 11.3 mm, respectively with mild tortuosity and mild calcific atherosclerosis present. The minimum and the perpendicular left external iliac artery measures 7.8 and 8.5 mm, respectively with mild tortuosity and minimal calcific atherosclerosis present. The minimum and the perpendicular left femoral artery measures 5.6 and 5.9 mm, respectively with mild tortuosi ty and uenk-go-zbpicfkr calcific atherosclerosis present. The minimum and the perpendicular right common iliac artery measures 10.2 and 10.4 mm, respectively with mild -to-moderate tortuosity and mscw-yj-juyfnugu calcific atherosclerosis present. The minimum and the perpendicular right external iliac artery measures 8.1 and 83 mm, respectively with mnpz-hs-rmipbdyq tortuosity and mild calcific atherosclerosis present. The minimum and the perpendicular right femoral artery measures 8.3 and 8.3 mm, respectively with mild tortuosity and mild calcific atherosclerosis present. NON-VASCULAR: The visualised thyroid gland is unremarkable. A 1.5 hypodensity is identified in the right thyroid lobe, image 31. This can be further assessed interactively by dedicated thyroid ultrasound scan. The chest wall and mediastinum appear normal. There are multiple lymph nodes identified in the mediastinum, the number are more than expected, and some of them measures up to 1.6 cm in diameter, for example at image 63. No prior examination is available for comparison. An addendum will be dictated thereafter regarding optimal recommendation including interval follow-up to monitor stability. In the lung windows, no endobronchial lesion is seen. Bibasal pleural effusions identified. Some subsegmental atelectatic changes are seen. Pulmonary vasculature is prominent indicating underlying cardiac congestion, with associated patchy groundglass opacities. Overall, no suspicious pulmonary nodule is identified. Calcified granuloma is identified in the left lung at image 123 indicating prior granulomatous disease. In the abdomen, the liver and spleen appears unremarkable. The liver edge is smooth. No abnormal enhancing structure is identified. The adrenal glands are not enlarged. Gallstone is seen in the gallbladder with no wall thickening identified. The pancreas appears unremarkable. No acute renal pathology seen and no hydronephrosis or perirenal fluid collection is identified. Nonobstructive renal stones identified in the pelvis of the right kidney, at image 73, measure 1 cm in diameter. Multiple renal cysts identified in both kidneys, too many to described. Majority of them and no enhancement after contrast administration. In addition, there is linear calcification identified in one of the hypodensity seen in the right kidney in the precontrast series at image 69. Bowel is not well assessed by CT angiography as enteric contrast is not given. No bowel dilation is seen. Scattered colonic diverticulum is seen in the distal colon with no inflammatory changes identified. The prostate gland and the bladder appears unremarkable. No significant retroperitoneal adenopathy is seen. No free air free flow seen abdomen and pelvis. Mild presacral oedema is identified and trace free fluid is identified in dependent portion of the pelvis and may reflect underlying cardiac congestion. Superficial defect is identified in the right groin suggesting recent catheterization. In the bony windows, no acute bony pathology is identified. Some degenerative changes is noted. CONCLUSIONS: 1. Patient has a diagnosis of aortic s tenosis. The aortic valve is tricuspid. The aortic Agatston Score is 4780 and aortic valve area is 57 mm2. Mitral annular calcification is seen, predominantly in the Mild calcification seen in the aortic root/ascending thoracic aorta. Dimensions that may be helpful for TAVR as described above. 2. Coronary artery origins are normal w ith scattered calcification seen in the left and the right coronary territories. Hypodensity is identified in the left atrial appendage that may represents slow flow versus thrombus; delay images were not obtained in this dedicated TAVR examination. Correlate with echocardiography. 3. The central pulmonary artery is norm al in calibre. Bibasal pleural effusion is seen right greater than left and pulmonary vasculature is prominent indicating underlying cardiac congestion. Evidence of prior granulomatous disease. 4. Other findings as described above. A 1.5 hypodensity is identified in the right thyroid lobe, image 31. This can be further assessed interactively by dedicated thyroid ultrasound scan. 5. An addendum will be dictated regardi ng the non-vascular findings by the [employer] Officer Radiologist. Signed: Tyler Chin MD Report Verified Date/Time: 11/04/2019 11:43:12 Performing Organization Address City/State/[facility] [[email or web address]]code Ph one Number RIS * Osmolality, serum (11/03/2019 4:09 PM [employer] [facility]) Osmolality Serum 300 (H) 275 - 295 mOsm/kg [facility] Specimen Blood Performing Organization Address City/State/[facility] [[email or web address]]code Ph one Number [facility] [address] [place], [place] [address] [facility] * Osmolality, urine (11/03/2019 4:08 PM [employer] [facility]) Osmolality, Ur 230 40-1,400 mOsm/kg [facility] Specimen Urine Performing Organization Address City/State/Zipcode Ph one Number [facility] [address] [place] [address] [facility] * Manual Differential (11/03/2019 4:05 AM [employer] [facility]) % Neutros (manual) 73 % [facility] % Lymphs (manual) 15 % [facility] % Monos (manual) 8 % [facility] % Eos (manual) 2 % [facility] % Baso (manual) 1 % [facility] % Myelo (manual) 1 (H) 0 - 0 % [facility] # Neutros (manual) 5.18 1.80 - 8.00 K/L [facility] # Lymphs (manual) 1.07 (L) 1.48 - 4.50 K/L [facility] # Monos (manual) 0.57 0.00 - 1.30 K/L [facility] # Eos (manual) 0.14 0.00 - 0.50 K/L [facility] # Baso (manual) 0.07 0.00 - 0.20 K/L [facility] # Myelo (manual) 0.07 (H) 0.00 - 0.00 K/L [facility] Total Counted 100 [facility] WBC Morphology Normal [facility] Platelet Morphology Normal [facility] Anisocytosis 1+ few [facility] [place] Cells 3+ many [facility] Elliptocytes 1+ few [facility] Poikilocytes 3+ many [facility] Specimen Blood Performing Organization Address City/State/Zipcode Ph one Number [facility] [address] [place], [place] [address] [facility] * US renal complete (11/03/2019 12:51 AM [employer] [facility]) Specimen Narrative Performed At FINAL REPORT [facility] RIS Renal ultrasound dated 11/03/2019 CLINICAL HISTORY: Renal dysfunction. COMPARISON: None Comment:Real-time transabdominal re nal ultrasound was performed. Right kidney measures 10.5 x 5.7 x 5.3 cm. Left kidney measures 12.5 x 10.5 x 4.9 cm. Right renal cortex measures 1.1 cm. Left renal cortex measures 1.3 cm. Renal parenchymal echogenicity: Elevate d. No hydronephrosis, nephrolithiasis or s olid mass is seen. There are multiple bilateral renal cyst s, including several large left renal cysts. The largest cyst on t he right kidney measures 3.1 cm. The largest cyst on the left kidney measures 6.1 cm. Doppler ultrasound demonstrates a paten t main renal artery and vein bilaterally. The bladder is unremarkable. Impression: Multiple bilateral renal cysts, includi ng large left renal cysts. Elevated renal parenchymal echogenicity , a nonspecific finding often associated with medical renal disease. Signed: Mynor Brooks MD Report Verified Date/Time: 02:31:25 Procedure Note Interface, External Ris In - 11/03/2019 6:55 AM [employer] [facility] FINAL REPORT Renal ultrasound dated 11/03/2019 CLINICAL HISTORY: Renal dysfunction. COMPARISON: None Comment: Real-time transabdominal renal ultrasound was performed. Right kidney measures 10.5 x 5.7 x 5.3 cm. Left kidney measures 12.5 x 10.5 x 4.9 cm. Right renal cortex measures 1.1 cm. Left renal cortex measures 1.3 cm. Renal parenchymal echogenicity: Elevated. No hydronephrosis, nephrolithiasis or solid mass is seen. There are multiple bilateral renal cysts, including several large left renal cysts. The largest cyst on the right kidney measures 3.1 cm. The largest cyst on the left kidney measures 6.1 cm. Doppler ultrasound demonstrates a patent main renal artery and vein bilaterally. The bladder is unremarkable. Impression: Multiple bilateral renal cysts, including large left renal cysts. Elevated renal parenchymal echogenicity, a nonspecific finding often associated with medical renal disease. Signed: Mynor Brooks MD Report Verified Date/Time: 11/03/2019 02:31:25 Performing Organization Address City/State/[facility] [[email or web address] Ph one Number RIS * Urea Nitrogen, random urine (11/02/2019 3:24 PM [employer] [facility]) Urea Nitrogen, Ur 492 mg/dL [facility] Specimen Urine Narrative Performed At Reference Range: No Normals [facility] Performing Organization Address City/[facility] [[email or web address]]code Ph one Number [address] [facility] * Sodium, random urine (11/02/2019 3:24 PM [employer]) Sodium Urine 29 meq/L [facility] Specimen Urine Narrative Performed At Reference Range: No Normals [facility] Performing Organization Address City/[facility] [[email or web address] Ph one Number [address] [facility] * Creatinine, random urine (11/02/2019 3:24 PM [employer]) Creatinine, Ur 61.3 mg/dL [facility] Specimen Urine Narrative Performed At Reference Range: No Normals [facility] Performing Organization Address City/[facility] [[email or web address] Ph one Number [address] [phone] [place] [address] * Urinalysis w/Microscopic (11/02/2019 3:24 PM [employer]) Color, UA Yellow [facility] Clarity, UA Clear [facility] Specific [place], UA 1.009 1.001 - 1.035 [facility] pH, UA 5.0 5.0 - 8.0 [facility] Protein, UA 20 mg/dL (A) Negative [facility] Glucose, UA Negative Negative [facility] Ketones, UA Negative Negative [facility] Bilirubin, UA Negative Negative [facility] Blood, UA Small (A) Negative [facility] Nitrite, UA Negative Negative [facility] Leukocytes, UA Negative Negative [facility] Urobilinogen, UA 0.2 0.2 - 1.0 mg/dL [facility] RBC, UA 2 /HPF [facility] WBC, UA 1 /HPF [facility] Mucus Rare [facility] Squam Epithel, UA <1 /HPF [facility] Yeast Rare [facility] Specimen Source [facility] Specimen Urine Performing Organization Address City/State/Zipcode Ph one Number [place] [phone] [place] [address] * PERIPHERAL VASCULAR REPORT - SCAN (11/01/2019 9:21 PM [employer] [facility]) Narrative Performed At This result has an attachment that is n ot available. * Pulmonary Funct Lab Spirometry (11/01/2019 1:31 PM [employer] [facility]) Narrative Performed At Nadine Ramirez, EVY, CONSTRUCTION SKILLS TEACHER 10/072:21 PM [facility] PFT CHARTING REPORT Infection Control/Hand Hygiene procedur es followed throughout the encounter with patient: Yes Patient Identification Method: Patient name verified on armband, and Medical record on armband, Is the order complete?: Yes Account ID#: [id number] Patient Name: Osmel Munoz Birthdate: 1930 Age: 89 y.o.Sex: male Admission Date: 10/26/2019 Patient Status: Inpatient Reasons/Symptom for having the Test?: a history/complaint of a dyspnea Type of study/treatment ordered by julio owens: Bedside Spirometry without bronchodilators Lab Results Component Value Date HGB 9.9 (L) 11/01/2019 Ranges: Adult Male 13 - 16.8 g/dl Adult Female 12 - 15 g/dl 6 Minute Walk (read only) 11/01/201911/01/2019 Pulse 87 83 90 SpO2 98 96 95 Study Date: 11/01/19 Study Time: 1331 ASSESSMENT History & Physical Mode of Arrival: Ambulatory Pulse: 84 Resp: 19SPO2: 96 %on RA Pain Assessment Pain:None TESTING/THERAPEUTICS Medications ordered or required for pro cedure: N/A PT EDUCATION/INSTRUCTIONS Barriers to learning: No known barriers to learning. Learning need identified: Yes, Patient/ Family/Guradian was informed of the ordered study by the ysician Barriers to performing study or treatme nt: Patient has no known disability to perform the study or monroe tment. DISCHARGE The study was completed in accordance w ith the physician's order and patient released from the lab witho ut adverse outcome. * Carotid doppler bilateral (10/31/2019 7:40 PM [employer] [facility]) Ejection Fraction [facility] Specimen Impressions Performed At Right Impression [facility] 1. There is <50% diameter reduction (approximately 35 % by 2-D measurement) [facility] in the internal carotid artery with a p eak velocity of 53/14 cm/sec and heterogeneous plaque. 2. There is non-occluding plaque in the external carotid artery. 3. There is non-occluding plaque in the common carotid artery. 4. The vertebral artery flow is antegra de . 5. The subclavian artery is within norm al limits where visualized. Left Impression 1. There is <50% diameter reduction (ap proximately 27.6% by 2-D measurement) in the internal carotid artery with a p eak velocity of 36/12 cm/sec and heterogeneous plaque. 2. There is non-occluding plaque in the external carotid artery. 3. There is non-occluding plaque in the common carotid artery. 4. The vertebral artery flow is antegra de . 5. The subclavian artery is within norm al limits where visualized. Conclusions Summary Carotid duplex scanning and color flow imaging were performed bilaterally. The arteries were adequately visualized . The bilateral internal carotid arteries had <50% hemodynamically insig nificant stenosis (approximately 35% by 2-D measurement on the right, ap proximately 27.6% by 2-D measurement on the left) with heterogen eous plaque. The vertebral artery flow was antegrade and normal bilateral ly. The subclavian arteries were patent bilaterally where visualized. Signature Velocities are measured in cm/s ; Diame ters are measured in cm Carotid Right Measurements + +----+----+-----+------ ------+ + + !Location !PSV !EDV !Angle! %Stenosis 2D!%Stenosis Doppler!Tortuosity ! + +----+----+-----+------ ------+ + + !Prox CCA !61.5!17.4!60 !! ! ! + +----+----+-----+------ ------+ + + !Dist CCA !44.2!16.2!60 !! ! ! + +----+----+-----+------ ------+ + + !Prox ICA !53.1!14.3!60 !35% !<50% ! ! + +----+----+-----+------ ------+ + + !Dist ICA !59.5!18.2!60 !! ! ! + +----+----+-----+------ ------+ + + !Prox ECA !56!! 60 !! ! ! + +----+----+-----+------ ------+ + + !Vertebral!45.2!17.2!60 !! ! ! + +----+----+-----+------ ------+ + + !Prox Subclavian!58!!60 !! ! ! + +----+----+-----+------ ------+ + + - There is antegrade vertebral flow noted on the right side. - Additional Measurements:ICAPSV/CC APSV 1.35.ICAEDV/CCAEDV 1.05. Carotid Left Measurements + +----+----+-----+------ ------+ + + !Location !PSV !EDV !Angle! %Stenosis 2D!%Stenosis Doppler!Tortuosity ! + +----+----+-----+------ ------+ + + !Prox CCA !45.2!15.7!60 !! ! ! + +----+----+-----+------ ------+ + + !Dist CCA !49.1!18.7!60 !! ! ! + +----+----+-----+------ ------+ + + !Prox ICA !36.4!12.3!60 !27.6% !<50% ! ! + +----+----+-----+------ ------+ + + !Dist ICA !63.8!18.9!60 !! ! ! + +----+----+-----+------ ------+ + + !Prox ECA !41.8!9.83!60 !! ! ! + +----+----+-----+------ ------+ + + !Vertebral!42.7!14!60 !! ! ! + +----+----+-----+------ ------+ + + !Prox Subclavian!41.8!!60 !! ! ! + +----+----+-----+------ ------+ + + - There is antegrade vertebral flow noted on the left side. - Additional Measurements:ICAPSV/CC APSV 1.3.ICAEDV/CCAEDV 1.2. Narrative Performed At LAB - Carotid Duplex Study [facility] Demographics [facility] Patient NameSOSMEL MARTIN Date of Study 10/31/2019 89 Visit [id number] Date of 1930 Referring Omaira Mcgee Room Number 1431 Physician Campus Coordinator Sherrie Jimenez [facility], [facility] Physician Procedure Type of Study: Cerebral: Carotid, CAROTID DOPPLER, HAKEEM ATERAL. 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 Patient Status:Routine. Study Location:Portable. Technical Quality:Adequate visualizatio n. Risk Factors History of Disease + +-- --------+ + !Diagnosis!Date! Comments ! + +-- --------+ + !History/Risk Factors: !10/31/2019!aortic stenosis! + +-- --------+ + Procedure Note Interface, External Ris In - 11/01/2019 12:41 PM [employer] [facility] PV LAB - Carotid Duplex Study Demographics Patient Name OSMEL MUNOZ Date of Study 10/31/2019 Age 89 Visit Number [id number] Gender Male Accession Number [id number] Date of 1930 Referring Omaira Mcgee Room Number 1431 Physician Campus Coordinator Sherrie Jimenez Interpreting Anat Mims T Physician Procedure Type of Study: Cerebral: Carotid, CAROTID DOPPLER, BILATERAL. 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 Patient Status:Routine. Study Location:Portable. Technical Quality:Adequate visualization. Risk Factors History of Disease + +--- -------+ + !Diagnosis !Date !Comments ! + +--- -------+ + !History/Risk Factors: !10/31/2019!aortic stenosis ! + +--- -------+ + Impressions Right Impression 1. There is <50% diameter reduction (chano roximately 35% by 2-D measurement) in the internal carotid artery with a peak velocity of 53/14 cm/sec and heterogeneous plaque. 2. There is non-occluding plaque in the external carotid artery. 3. There is non-occluding plaque in the common carotid artery. 4. The vertebral artery flow is antegrad e . 5. The subclavian artery is within brigido l limits where visualized. Left Impression 1. There is <50% diameter reduction (chano roximately 27.6% by 2-D measurement) in the internal carotid artery with a peak velocity of 36/12 cm/sec and heterogeneous plaque. 2. There is non-occluding plaque in the external carotid artery. 3. There is non-occluding plaque in the common carotid artery. 4. The vertebral artery flow is antegrad e . 5. The subclavian artery is within brigido l limits where visualized. Conclusions Summary Carotid duplex scanning and color flow imaging were performed bilaterally. The arteries were adequately visualized. The bilateral internal carotid arteries had <50% hemodynamically insignificant stenosis (approximately 35% by 2-D measurement on the right, approximately 27.6% by 2-D measurement on the left) with heterogeneous plaque. The vertebral artery flow was antegrade and normal bilaterally. The subclavian arteries were patent bilaterally where visualized. Signature Velocities are measured in cm/s ; Diameters are measured in cm Carotid Right Measurements + +----+----+-----+------- -----+ + + !Location !PSV !EDV !Angle!%Stenosis 2D!%Stenosis Doppler!Tortuosity ! + +----+----+-----+------- -----+ + + !Prox CCA !61.5!17.4!60 ! ! ! ! + +----+----+-----+------- -----+ + + !Dist CCA !44.2!16.2!60 ! ! ! ! + +----+----+-----+------- -----+ + + !Prox ICA !53.1!14.3!60 !35% !<50% ! ! + +----+----+-----+------- -----+ + + !Dist ICA !59.5!18.2!60 ! ! ! ! + +----+----+-----+------- -----+ + + !Prox ECA !56 ! !60 ! ! ! ! + +----+----+-----+------- -----+ + + !Vertebral !45.2!17.2!60 ! ! ! ! + +----+----+-----+------- -----+ + + !Prox Subclavian!58 ! !60 ! ! ! ! + +----+----+-----+------- -----+ + + - There is antegrade vertebral flow noted on the right side. - Additional Measurements:ICAPSV/CCAPSV 1.35.ICAEDV/CCAEDV 1.05. Carotid Left Measurements + +----+----+-----+------- -----+ + + !Location !PSV !EDV !Angle!%Stenosis 2D!%Stenosis Doppler!Tortuosity ! + +----+----+-----+------- -----+ + + !Prox CCA !45.2!15.7!60 ! ! ! ! + +----+----+-----+------- -----+ + + !Dist CCA !49.1!18.7!60 ! ! ! ! + +----+----+-----+------- -----+ + + !Prox ICA !36.4!12.3!60 !27.6% !<50% ! ! + +----+----+-----+------- -----+ + + !Dist ICA !63.8!18.9!60 ! ! ! ! + +----+----+-----+------- -----+ + + !Prox ECA !41.8!9.83!60 ! ! ! ! + +----+----+-----+------- -----+ + + !Vertebral !42.7!14 !60 ! ! ! ! + +----+----+-----+------- -----+ + + !Prox Subclavian!41.8! !60 ! ! ! ! + +----+----+-----+------- -----+ + + - There is antegrade vertebral flow noted on the left side. - Additional Measurements:ICAPSV/CCAPSV 1.3.ICAEDV/CCAEDV 1.2. Performing Organization Address City/[facility] Ph one Number [facility] * Hemoglobin and hematocrit (10/30/2019 2:35 PM [employer] [facility]) Hemoglobin 10.4 (L) 13.7 - 17.5 GM/DL [facility] Hematocrit 33.4 (L) 40.1 - 51.0 % [facility] Specimen Blood Performing Organization Address [facility]/Count Includes [facility] one Number [address] [facility] * Lactate dehydrogenase (LDH) (10/30/2019 2:35 PM [employer] [facility]) LDH 332 (H) 125 - 220 U/L [facility] Specimen Blood Performing Organization Address [facility] Ph one Number [address] [facility] * Haptoglobin (10/30/2019 2:35 PM [employer]) Haptoglobin 92 14 - 258 mg/dL [facility] Specimen Blood Performing Organization Address [facility] Ph one Number [address] [facility] * Vitamin B12 and Folate (10/30/2019 4:19 AM [employer]) Vitamin B12 1,558 (H) 213 - 816 pg/mL [facility] Folate 13.0 >=7.0 ng/mL [facility] Specimen Blood Performing Organization Address City/[facility] [[email or web address] Ph one Number [address] [facility] * Iron, TIBC, % sat. (without ferritin) (10/30/2019 4:19 AM [employer] [facility]) Iron 37.0 (L) 40.0 - 160.0 ug/dL [facility] TIBC 254 250 - 450 ug/dL [facility] Iron % Saturation 15 (L) 20 - 55 % [facility] Specimen Blood Performing Organization Address City/[facility] [[email or web address]]code Ph one [address] 0 [phone] [place] [address] * RPR (10/30/2019 4:19 AM [employer]) RPR Nonreactive Nonreactive [facility] Specimen Blood Performing Organization Address City/[facility] [[email or web address] Ph one [address] 0 [phone] [place] [address] * TSH (10/30/2019 4:19 AM [employer]) TSH 2.70 0.35 - 4.94 uIU/mL [facility] Specimen Blood Performing Organization Address City/[facility] [email or web address] Ph one [address] [phone] [place] [address] * Ferritin (10/30/2019 4:19 AM [employer] IRON) Ferritin 179 5 - 275 ng/mL [facility] Specimen Blood Performing Organization Address [facility] [[email or web address] Ph one [address] [phone] [place] [address] * Hepatic function panel (10/30/2019 4:19 AM [employer] IR[employer]) Only the most recent of 3 results within the time period is included. Protein, Total 6.2 6.0 - 8.3 gm/dL [facility] Albumin 3.2 (L) 3.5 - 5.0 g/dL [facility] Total Bilirubin 0.5 0.2 - 1.2 mg/dL [facility] Bilirubin, Direct 0.4 0.1 - 0.5 mg/dL [facility] Alkaline Phosphatase 51 40 - 150 U/L [facility] AST 28 5 - 34 U/L [facility] ALT 17 6 - 55 U/L [facility] Specimen Blood Performing Organization Address City/State/[facility] [email or web address] Ph one Number [facility] [address] [place], [place] [address] [facility] * CBC (Hemogram only) (10/29/2019 3:38 AM [employer] IRON) Only the most recent of 2 results within the time period is included. WBC 7.0 3.5 - 10.5 K/L [facility] RBC 4.03 (L) 4.63 - 6.08 M/L [facility] Hemoglobin 10.6 (L) 13.7 - 17.5 GM/DL [facility] Hematocrit 33.3 (L) 40.1 - 51.0 % [facility] MCV 82.6 79.0 - 92.2 fL [facility] MCH 26.3 25.7 - 32.2 pg [facility] MCHC 31.8 (L) 32.3 - 36.5 GM/DL [facility] RDW 14.9 (H) 11.6 - 14.4 % [facility] Platelets 249 150 - 450 K/CU MM [facility] MPV 10.6 9.4 - 12.4 fL [facility] nRBC 2 (H) 0 - 0 /100 WBC [facility] Specimen Blood Performing Organization Address City/State/Zipcode Ph henrique Tucker [facility] [address] [place], [place] [address] [facility] * ECHOCARDIOGRAM REPORT - SCAN (10/28/2019 9:22 PM [employer]) Narrative Performed At This result has an attachment that is n ot available. * 2D Echo W/Doppler(CW/PW/Color) (10/28/2019 8:44 AM [employer] IRON) Ejection Fraction [facility]CHO [facility] Specimen Narrative Performed At Transthoracic Echocardiography Report (TTE) [facility] ECH O HEARTLAB Demographics [facility] Patient NameSTEWART, Date of Study10/28/2019 OSMEL Gender Male Visit [id number] Race Unknown Room [id number] Number Date of 1930 Molly peterson PhysicianSARINA Phillips Age 89 year(s) SonographerMarisa Ely [facility] Bread Racker Joshua Chavez Interpreting Sameer Wallis MD Physician Procedure Type of Study TTE procedure:2DECHO W DO PPLER(CW/PW/COLOR) (Routine) Indications:Valvular Disease with last e in clinical symptoms . Clinical History Severe , HTN, DM, AFIB, DVT, Fever, S OB, UTI, Dyspnea HGB 11.3 HCT 34.6 % Height: 68 inches Weight: 73.48 kg (162 lbs) BSA: 1.87 m^2 BMI: 24.63 kg/m^2 HR: 90 bpm BP: 127/88 mmHg Summary The left ventricle is chamber size (by vol index) is normal (male - LVED vol - 34-74ml/m2). Severe concentric LV hypertrophy. All of the LV segments are mildly hypokinetic . Estim ated LVEF by qualitative assessment is mildly reduced (40-44%) . Severe aortic stenosis. AoV area at res t by continuity equation is in the range of 0.8 cm2. AoV resting dimension less obstructive index (DOI) = 0.17. AoV resting Mean Gradient = 52mmHg. Estimated peak systolic PA pressure is 65-70 mmHg . Signature Findings Technical Quality: Good visualization Left Ventricle The left ventricle is chamber size (by vol index) is normal (male - LVED vol - 34-74ml/m2). Severe concentric LV hypertrophy. All of the LV segments are mildly hypokinetic . Estimated LVEF by qualitative assessment is mildly reduced (40-44%) . Left AtriumLA s ize is severely enlarged (>48 ml/m2) . Right VentricleRV chamb er size is normal . Global RV systolic function is depressed . Right Atrium Right atrium dilated. Aortic Valve Mild a ortic regurgitation. Severe AoV cusp thickening. Severe AoV cusp thickening. Severe aortic stenosis. AoV area at rest by continuity equation is in the range of 0.8 cm2. AoV resting dimensionless obstructive index (DOI) = 0.17. AoV resting Mean Gradient = 52mmHg. Mitral Valve Mild m itral annular calcification. Mild MV leaflet thickening. Lcol-ml-gigsxqej mitral regurgitation. Tricuspid ValveMild-to- moderate tricuspid regurgitation. Estimated peak systolic PA pressure is 65-70 mmHg . Pulmonic Valve Normal P V structure and function by limited views and Doppler. Aorta Aortic root size (SInus of Valsalva diameter) is normal . PericardiumA sm all posterior pericardial effusion is present . IVC/SVC/PA/PV/PleuralThe estimated RA pressure by IVC dynamics 11-15mmHg . Chambers/Structures Left Atrium LA Dimension: 5.04 cm LA Area: 33.76 cm^2 LA Volume: 134.37 ml LA Vol. Index: 72 ml/m^2 Left Ventricle LVIDd: 3.97 cm LVEDV:73.04 ml LV Septum Diastolic: 1.76 cm LV PW Diastolic: 1.63 cm LVEDV Mendoza's:76.13 ml LV Length: 7.52 cm LVESV Mendoza's:42.95 ml LVEF Mendoza's: 43.6 % LVEDVI: 41 ml/m^2 LVESVI: 23 ml/m^2 LVOT Diameter: 2.45 cm Right Ventricle RVOT VTI: 10.1 cm Aorta Ao Root S of Ramírez.: 3.76 cm Ascending Aorta: 3.5 cm Doppler/Quantitative Measurements Aortic Valve Peak Velocity: 4.39 m/s Mean Velocity: 3.49 m/s Peak Gradient: 77.24 mmHg Mean Gradient: 51.99 mmHg AV Area (continuity): 0.78 cm^2 AV VTI: 90.62 cm AV DVI: 0.17 LVOT Peak Velocity: 0.72 m/s Peak Gradient: 2.19 mmHg Mean Velocity: 0.55 m/s Mean Gradient: 1.43 mmHg LVOT Diameter: 2.45 cm LVOT VTI: 15.07 cm LVOT Area: 4.71 cm^2 LVOT SV:71.01 ml LVOT CO: 6.39 l/min LVOT CI: 3.42 l/min/m^2 Tricuspid Valve TR Velocity: 3.77 m/s TR Gradient: 56.74 mmHg Procedure Note Interface, External Ris In - 10/28/2019 3:35 PM [employer] Transthoracic Echocardiography Report (TTE) Demographics Patient Name BREANA, Date of Study 10/28/2019 OSMEL Gender Male Visit Number [id number] Race Unknown Room Number C618 Number Date of 1930 Referring Physician SARINA Phillips Age 89 year(s) Campus Coordinator Marisa Ely [facility] Bread Racker Joshua Chavez Interpreting Sameer Wallis MD Physician Procedure Type of Study TTE procedure:2DECHO W DOPPLER(CW/PW/COLOR) (Routine) Indications:Valvular Disease with change in clinical symptoms . Clinical History Severe , HTN, DM, AFIB, DVT, Fever, SOB, UTI, Dyspnea HGB 11.3 HCT 34.6 % Height: 68 inches Weight: 73.48 kg (162 lbs) BSA: 1.87 m^2 BMI: 24.63 kg/m^2 HR: 90 bpm BP: 127/88 mmHg Summary The left ventricle is chamber size (by vol index) is normal (male - LVED vol - 34-74ml/m2). Severe concentric LV hypertrophy. All of the LV segments are mildly hypokinetic . Estimated LVEF by qualitative assessment is mildly reduced (40-44%) . Severe aortic stenosis. AoV area at rest by continuity equation is in the range of 0.8 cm2. AoV resting dimensionless obstructive index (DOI) = 0.17. AoV resting Mean Gradient = 52mmHg. Estimated peak systolic PA pressure is 65-70 mmHg . Signature Findings Technical Quality: Good visualization Left Ventricle The left ventricle is chamber size (by vol index) is normal (male - LVED vol - 34-74ml/m2). Severe concentric LV hypertrophy. All of the LV segments are mildly hypokinetic . Estimated LVEF by qualitative assessment is mildly reduced (40-44%) . Left Atrium LA size is severely enlarged (>48 ml/m2) . Right Ventricle RV chamber size is normal . Global RV systolic function is depressed . Right Atrium Right atrium dilated. Aortic Valve Mild aortic regurgitation. Severe AoV cusp thickening. Severe AoV cusp thickening. Severe aortic stenosis. AoV area at rest by continuity equation is in the range of 0.8 cm2. AoV resting dimensionless obstructive index (DOI) = 0.17. AoV resting Mean Gradient = 52mmHg. Mitral Valve Mild mitral annular calcification. Mild MV leaflet thickening. Anoa-tq-nuzyhjoe mitral regurgitation. Tricuspid Valve Fmcx-va-vedsvphv tricuspid regurgitation. Estimated peak systolic PA pressure is 65-70 mmHg . Pulmonic Valve Normal PV structure and function by limited views and Doppler. Aorta Aortic root size (SInus of Valsalva diameter) is normal . Pericardium A small posterior pericardial effusion is present . IVC/SVC/PA/PV/Pleural The estimated RA pressure by IVC dynamics 11-15mmHg . Chambers/Structures Left Atrium LA Dimension: 5.04 cm LA Area: 33.76 cm^2 LA Volume: 134.37 ml LA Vol. Index: 72 ml/m^2 Left Ventricle LVIDd: 3.97 cm LVEDV:73.04 ml LV Septum Diastolic: 1.76 cm LV PW Diastolic: 1.63 cm LVEDV Mendoza's:76.13 ml LV Length: 7.52 cm LVESV Mendoza's:42.95 ml LVEF Mendoza's: 43.6 % LVEDVI: 41 ml/m^2 LVESVI: 23 ml/m^2 LVOT Diameter: 2.45 cm Right Ventricle RVOT VTI: 10.1 cm Aorta Ao Root S of Ramírez.: 3.76 cm Ascending Aorta: 3.5 cm Doppler/Quantitative Measurements Aortic Valve Peak Velocity: 4.39 m/s Mean Velocity: 3.49 m/s Peak Gradient: 77.24 mmHg Mean Gradient: 51.99 mmHg AV Area (continuity): 0.78 cm^2 AV VTI: 90.62 cm AV DVI: 0.17 LVOT Peak Velocity: 0.72 m/s Peak Gradient: 2.19 mmHg Mean Velocity: 0.55 m/s Mean Gradient: 1.43 mmHg LVOT Diameter: 2.45 cm LVOT VTI: 15.07 cm LVOT Area: 4.71 cm^2 LVOT SV:71.01 ml LVOT CO: 6.39 l/min LVOT CI: 3.42 l/min/m^2 Tricuspid Valve TR Velocity: 3.77 m/s TR Gradient: 56.74 mmHg Performing Organization Address City/State/Zipcode Ph one Number [facility] * Procalcitonin (10/27/2019 8:20 PM [employer] IRON) Procalcitonin 0.06 (H) <0.05 ng/mL [facility] Specimen Blood Narrative Performed At SEPSIS RISK (ng/mL) [facility] Low:0.05-0.50 [facility] Intermediate: 0.51-2.00 High: >=2.01 Performing Organization Address City/State/Zipcode Ph one Number [facility] [address] [place], [place] [address] MED[facility]ENTER * CT brain without IV contrast (10/27/2019 2:07 PM [employer] IR[employer]) Specimen Narrative Performed At FINAL REPORT GE RIS CT, BRAIN, WITHOUT CONTRAST INDICATION: Confusion TECHNIQUE: Noncontrast axial imaging wa s obtained from the vertex to the skull base. Axial images were recon structed using a bone algorithm. DOSE REDUCTION: Dose modulation, iterat sharifa reconstruction, and/or weight-based adjustment of the mA/kV wa s utilized to reduce the radiation dose to as low as reasonably achievable. COMPARISON: None. FINDINGS: Intracranial: Small focus of encephalom alacia in the left occipital lobe, posterior border zone distributio n. Generalized cerebral atrophy with ex vacuo dilatation of the ventricular system proportionate to sulci. Scattered foci of hypoattenuation within the periventricular and subcortical white m atter are a nonspecific finding commonly attributed to chronic small vessel ischemic disease. No intracranial hemorrhage or abnormal extra-axial collection. No evidence of acute territorial infarct. No mass effect. No hydrocephalus. Osseous structures: No fracture. No love picious lesion. Paranasal sinuses and mastoid air cells : No evidence of sinusitis. Mastoids are clear. Orbital contents: Globes are intact. IMPRESSION: 1.No intracranial mass effect, hemorrha ge, or acute territorial infarct. 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 If there is persistent clinical concern for intracranial pathology, MR examination is recommended for [facility] characterization. Signed: Maria Vila MD Report Verified Date/Time: 9 14:13:39 Procedure Note Interface, External Ris In - 10/27/2019 2:15 PM [employer] IRON FINAL REPORT CT, BRAIN, WITHOUT CONTRAST INDICATION: Confusion TECHNIQUE: Noncontrast axial imaging was obtained from the vertex to the skull base. Axial images were reconstructed using a bone algorithm. DOSE REDUCTION: Dose modulation, iterative reconstruction, and/or weight-based adjustment of the mA/kV was utilized to reduce the radiation dose to as low as reasonably achievable. COMPARISON: None. FINDINGS: Intracranial: Small focus of encephalomalacia in the left occipital lobe, posterior border zone distribution. Generalized cerebral atrophy with ex vacuo dilatation of the ventricular system proportionate to sulci. Scattered foci of hypoattenuation within the periventricular and subcortical white matter are a nonspecific finding commonly attributed to chronic small vessel ischemic disease. No intracranial hemorrhage or abnormal extra-axial collection. No evidence of acute territorial infarct. No mass effect. No hydrocephalus. Osseous structures: No fracture. No suspicious lesion. Paranasal sinuses and mastoid air cells: No evidence of sinusitis. Mastoids are clear. Orbital contents: Globes are intact. IMPRESSION: 1.No intracranial mass effect, hemorrhag e, or acute territorial infarct. 2.Remote-appearing left posterior border zone infarct. If there is persistent clinical concern for intracranial pathology, MR examination is recommended for further characterization. Signed: Maria Vila MD Report Verified Date/Time: 10/27/2019 14:13:39 Performing Organization Address City/State/Zipcode Ph one Number GE R[facility] * Urinalysis w/Microscopic + Reflex to Culture (10/27/2019 8:44 AM [employer] IRON) Color, UA Light Yellow [facility] Clarity, UA Clear [facility] Specific [place], UA 1.008 1.001 - 1.035 [facility] pH, UA 5.0 5.0 - 8.0 [facility] Protein, UA 20 mg/dL (A) Negative [facility] Glucose, UA Negative Negative [facility] Ketones, UA Negative Negative [facility] Bilirubin, UA Negative Negative [facility] Blood, UA Small (A) Negative [facility] Nitrite, UA Negative Negative [facility] Leukocytes, UA Negative Negative [facility] Urobilinogen, UA 0.2 0.2 - 1.0 mg/dL [facility] RBC, UA 3 /HPF [facility] WBC, UA <1 /HPF [facility] Specimen Source [facility] Specimen Urine Performing Organization Address City/[facility] Ph one Number [address] [facility] * Blood Culture - Routine (Right Venipuncture) (10/27/2019 6:58 AM [employer] IRON) Only the most recent of 2 results within the time period is included. Result No growth in 5 days [facility] Specimen Blood Performing Organization Address [facility] Ph one Number [address] 0 [phone] [place] [address] * Ammonia (10/27/2019 6:57 AM [employer] IRON) Ammonia 16 (L) 18 - 72 mol/L [facility] Specimen Blood Performing Organization Address [facility] Ph one Number [address] 0 [phone] [place] [address] * TSH/Free T4 If Indicated (10/27/2019 6:01 AM [employer] IRON) TSH 1.45 0.35 - 4.94 uIU/mL [facility] Specimen Blood Performing Organization Address [facility] Ph one Number [place] [phone] [place] [address] * Phosphorus (10/27/2019 6:01 AM [employer] IRON) Phosphorus 3.1 2.3 - 4.7 mg/dL [facility] Specimen Blood Performing Organization Address City/State/Zipcode Ph one Number [facility] Ember Zinkia [facility] [address] [place], [place] [address] MEDICAL CENTER after 03/12/2019 Insurance Payer Benefit Subscriber ID Type Phone Address Plan / Group [employer] C[employer] xxxxxxxxxxx [employer] Contracted NG ALL [phone] Advance Directives For more information, please contact: [facility] [place] [phone] [place], [place] [phone] Date Inactivated Comments Code Status Date Activated 11/13/2019 4:48 PM Full Code 10/31/2019 11:22 AM This code status was determined by: Patient 10/31/2019 11:22 AM Full Code 10/27/2019 1:04 AM This code status was determined by: Patient
--- OUTSIDE RECORDS SUMMARY | 2020-03-12 17:16 | XMS REPORT | Summary of Care ---
Author Author [facility] Organization [facility] Address Unknown Phone Unavailable Care Team Providers Care Rn Wellness Name Role Phone Schuyler Grace PCP Reason for Visit * Reason Comments Cardiology Consultation Hospital f/u TVAR * Consult, Test & Treat (Routine) Referred By Contact Referred To Contact Status Reason Specialty Diagnoses / Procedures Referral, Self Adam Wynne MD [address] [place] [address] Authorized Cardiovascular Diagnoses Disease / S/P TAVR Cardiology (transcatheter aortic valve replacement) 30 day TAVR (Echo, EKG, KCCQ) 30 day TAVR (Echo, EKG, KCCQ) P rocedures MA OFFICE OUTPATIENT VISIT 25 MINUTES CARDIOLOGY ESTABLISHED OV Encounter Details Care Team Description Date Type Department Adam Wynne MD [address] [place] [id number] Cardiology Consultation (Hospital f/u TV AR) 12/31/2019 Office Visit [facility] Cardiology [address], [address] [place] [address] Allergies No Known Allergiesdocumented as of this encounter (statuses as of 12/31/2019) Medications End Date Status Medication Sig Dispensed Refills Start Date Active atorvastatin (LIPITOR) 20 Take 20 mg by 0 MG tablet mouth daily. 11/12/2020 Active carvedilol (COREG) 6.25 Take 6.25 mg 0 MG tablet by mouth two 0 times daily. 11/13/2020 Active clopidogrel (PLAVIX) 75 Take 75 mg by 0 MG Tablet mouth daily. 0 11/13/2020 Active furosemide (LASIX) 20 MG Take 20 mg by 0 11/14 tablet mouth daily. 0 11/12/2020 Active hydrALAZINE (APRESOLINE) Take 10 mg by 0 11/13 10 MG tablet mouth daily. 0 Active metformin (GLUCOPHAGE) Take 1,000 mg 0 01 1000 MG tablet by mouth two 8 times daily. Active insulin glargine (LANTUS) Inject 20 0 100 UNIT/ML injection Units into the skin daily. Sliding Scale Active Apixaban 2.5 MG TABS Take 2.5 mg 0 by mouth two times daily. Active Insulin Glargine Inject 28 0 (BASAGLAR KWIKPEN) 100 Units into UNIT/ML SOPN the skin daily (with breakfast). 28 units in the morning documented as of this encounter (statuses as of 12/31/2019) Active Problems Not on filedocumented as of this encounter (statuses as of 12/31/2019) Social History Date Tobacco Use Types Packs/Day Years Used Never Smoker Smokeless Tobacco: Never Used Drinks/Week oz/Week Comments Alcohol Use Never Alcohol Habits Answer Date Recorded How often do you have a drink containing alcohol? Never 12/31/2019 How many drinks containing alcohol do you have on No t asked a typical day when you are drinking? How often do you have six or more drinks on one Not asked occasion? Sex Assigned at Date Recorded Not on file Industry Job Start Date Occupation Not on file Not on file Not on file Travel End Travel History Travel Start No recent travel history available. documented as of this encounter Last Filed Vital Signs Reading Time Taken Comments Vital Sign 157/71 12/31/2019 9:29 AM [employer] Blood Pressure 86 12/31/2019 9:29 AM [employer] Pulse - - Temperature 16 12/31/2019 9:29 AM [employer] Respiratory Rate 99% 12/31/2019 9:29 AM [employer] Oxygen Saturation - - Inhaled Oxygen Concentration 72.6 kg (160 lb) 12/31/2019 9:29 AM [employer] Weight 175.3 cm (5' 9") 12/31/2019 9:29 AM [employer] Height 23.63 12/31/2019 9:29 AM [employer] Body Mass Index documented in this encounter Patient Instructions * Patient Instructions* Adam Wynne MD - 12/31/2019 9:20 AM [employer] 1. S/p TAVR - EKG today: S/p TAVR - Echocardiogram done today: S/p TAVR - Labs: CBC, BMP: S/p TAVR - KCCQ-12 Questionnaire: S/p TAVR - Follow up in 4 months 2) Call me with any problems. [employer] documented in this encounter Progress Notes * Eduardo Oshea FNPC - 12/31/2019 9:20 AM [employer] Date: December 31, 2019 Patient Name: Osmel Munoz : 1930 Problem List: #Aortic stenosis TTE with critical with an SOPHIE of 0.4cm. TTE 10/28/2019: DOI 0.17. AV area 0.8 cm2 S/p TAVR with Medtronic CoreValve Evolut PRO+ # 34 mm on 11/08/2019 TTE 11/09/2019: LVEF 60%. DOI 0.82 #Acute on chronic diastolic heart failure TTE 10/28/2019: LVEF 40-44% 11/09/2019: LVEF 60% #Chronic Atrial fibrillation Eliquis #CAD Plavix Statin #Hypertension Coreg #HLD Statin #Diabetes mellitus type 2 Lantus #CKD Current Medications: Current Outpatient Medications Medication Sig Dispense Refill Apixaban 2.5 MG TABS Take 2.5 mg by mouth two times daily. atorvastatin (LIPITOR) 20 MG tablet Take 20 mg by mouth daily. carvedilol (COREG) 6.25 MG tablet Take 6.25 mg by mouth two times daily. clopidogrel (PLAVIX) 75 MG Tablet Take 75 mg by mouth daily. furosemide (LASIX) 20 MG tablet Take 20 mg by mouth daily. hydrALAZINE (APRESOLINE) 10 MG tablet Take 10 mg by mouth daily. Insulin Glargine (BASAGLAR KWIKPEN) 100 UNIT/ML SOPN Inject 28 Units into th e skin daily (with breakfast). 28 units in the morning insulin glargine (LANTUS) 100 UNIT/ML injection Inject 20 Units into the ski n daily. Sliding Scale metformin (GLUCOPHAGE) 1000 MG tablet Take 1,000 mg by mouth two times daily . No current facility-administered medications for this visit. Chief Complaint: Chief Complaint Patient presents with Cardiology Consultation Hospital f/u TVAR History of Present Illness: Osmel Munoz is a 89 y.o. male with a history of h ypertension, diabetes mellitus, atrial fibrillation, DVT, aortic stenosis who pr esented with a UTI to an outside hospital. He had significant dyspnea and was tr eated for volume overload, which was the second time in the past year. An echoca rdiogram demonstrated critical with an SOPHIE of 0.4cm. He is now s/p TAVR with Medtronic CoreValve Evolut PRO+ # 34 mm on 11/08/2019. TTE 11/09/2019 with LVEF 60% . DOI 0.82. He presents to the clinic today for his 30 day TAVR evaluation. Curr ently states to feel well. No active complaints of chest pain, SOB, palpitations , dizziness, or syncope. Allergies: No Known Allergies Past Medical History: No past medical history on file. Past Surgical History: No past surgical history on file. Social History: Social History Tobacco Use Smoking status: Never Smoker Smokeless tobacco: Never Used Substance Use Topics Alcohol use: Never Frequency: Never Family History: No family history on file. Review of Systems: Constitutional: Negative. HENT: Negative. Eyes: Negative. Respiratory: Negative for shortness of breath. Cardiovascular: Negative Gastrointestinal: Negative for abdominal pain. Genitourinary: Negative. Musculoskeletal: Negative. Skin: Negative. Neurological: Negative. Endo/Heme/Allergies: Negative. Psychiatric/Behavioral: Negative. EXAMINATION BP 157/71 | Pulse 86 | Resp 16 | Ht 5' 9" (1.753 m) | Wt 160 lb (72.6 kg) | SpO2 99% | BMI 23.63 kg/m General appearance: alert, cooperative, no distress, appears stated age Head: Normocephalic, without obvious abnormality, atraumatic Eyes: conjunctivae/corneas clear. PERRL, EOM's intact. Fundi benign Neck: supple, symmetrical, trachea midline, no adenopathy, thyroid: not enlarg ed, symmetric, no tenderness/mass/nodules, no carotid bruit and no JVD Lungs: clear to auscultation bilaterally Heart: regular rate and rhythm, S1, S2 normal Abdomen: Soft, non-tender. Bowel sounds normal. No masses, No organomegaly Extremities: extremities normal, atraumatic, no cyanosis or edema Pulses: 2+ and symmetric Skin: Skin color, texture, turgor normal. No rashes or lesions Neurologic: Patient is alert and oriented to person, place, and time Echocardiogram: TTE 11/09/2019: Summary 1. Normal LV size. Severe LVH. [...] annular calcification. Moderate mitral regurgitation. Tricuspid Valve [id number] tricuspid regurgitation. Estimated peak systolic PA pressure [...] 64.7 % Aorta Ao Root S of Rox.: 3.37 cm Doppler/Quantitative Measurements Mitral Valve MV [...] CO: 6.49 l/min LVOT CI: 3.47 l/min/m^2 Cardiac Catheterization: Selective Coronary Angiography 10/31/2019 Left Main No significant obstruction RCA Mild plaque of the mid RCA 90% ostial stenosis of small RV branch. 60-70% ostial stenosis of rPLV. 90% ostial stenosis of rPDA. LAD 40% mid LAD stenosis. Circ No significant obstruction. RIGHT HEART CATH 10/31/2019 1) Right atrial pressure RA 10/10/8 mmHg. 2) Right ventricular pressure RV 59/ EDP 9 mmHg. 3) Pulmonary artery pressure PA 58/26/37 mmHg. 4) Mean pulmonary capillary wedge pressure PCWP 18/17/14 mmHg. 5) Ao 125/71 6) LV pressures - not checked 7) PAO2 Sats 44% 8) Ao Sats 77% 9) By FAUSTINO calculation, cardiac output 4.4 LPM with a cardiac index of 2.38 L/mi n/m2. 10) TPG 23 mmHg 11) PVR 5.23 JACKSON ASSESSMENT/PLAN 1. S/p TAVR - EKG today: S/p TAVR - Echocardiogram done today: S/p TAVR - Labs: CBC, BMP: S/p TAVR - KCCQ-12 Questionnaire: S/p TAVR - Follow up in 4 months Eduardo Oshea, MSN, SPONSORSHIP COORDINATOR, [employer]-C Nurse Practitioner/Instructor Office: Nurse Practitioner to Dr. Adam Wynne MD Interventional Cardiology and Structural Heart Disease [facility] Supervising Physician Attestation: I, Adam Wynne MD., have seen and examined the patient and discussed with Eduardo Oshea NP. I agree with the noted findings, examination, assessment and pl an of care as documented in the note. I have also reviewed the medications, lab s, and senior analytic consultant notes. Adam Wynne MD, [facility] ([phone]) Interventional Cardiology and Structural Heart Disease Cardiology Section, [facility] Director, Structural Heart Disease [facility], [facility] 45 minutes spent in the care of the patient, with at least 50% of this time spen t face to face with patient in counseling and coordination of care. [employer] documented in this encounter Plan of Treatment Care Team Description Date Type Specialty Adam Wynne MD [address] [place] [address] [phone] 05/05/2020 Office Visit Cardiology Order Schedule Name Type Priority Associated Diag noses Ordered: 12/31/2019 ELECTROCARDIOGRAM ECG Routine S/P TAVR (tr anscatheter COMPLETE aortic valve replacement) Ordered: 12/31/2019 CBC W/AUTO DIFF WITH Lab Routine S/P TAVR (transcatheter PLATELETS aortic valve replacement) Ordered: 12/31/2019 BASIC METABOLIC PANEL Lab Routine S/P TAVR (transcatheter aortic valve replacement) Health Maintenance Due Date Last Done Comments TETANUS SHOT (ADULT) 1945 FALL SCREEN 1997 PNEUMOVAX >=65 (PPSV23) 1997 PREVNAR >= 65 (PCV13) 1997 MEDICARE AWV (Initial) 11/06/2018 FLU VACCINE > 6 MONTHS 06/06/2019 07/02/2015, , 08/15/2013, Additional history exists documented as of this encounter Results Not on filedocumented in this encounter Visit Diagnoses Diagnosis S/P TAVR (transcatheter aortic valve re placement) - Primary documented in this encounter Insurance Type Payer Benefit Subscriber ID Effective Phone Address Plan / Dates Group Medicare [employer] xxxxxxxxxxx 2018-P [id number] [place] [phone] documented as of this encounter
== END 2020-03-12 18:20 | disposition home or self-care (01) ==
LOC: ER 17:13
DX: M25.571 Pain in right ankle and joints of right foot (principal); M10.071 Idiopathic gout, right ankle and foot; I10 Essential (primary) hypertension; E11.9 Type 2 diabetes mellitus without complications; I48.91 Unspecified atrial fibrillation
CPT/HCPCS: 99282

== ENCOUNTER 2020-03-16 14:13 | Observation (INO) | payer MEDICARE, OTHER ==
[~2020-03-16] VITALS: Ht 175.3 cm; Wt 73.2 kg
--- OUTSIDE RECORDS SUMMARY | 2020-03-16 14:16 | XMS REPORT | Clinical Summary ---
Author Author [facility] Address Unknown Phone Unavailable Care Team Providers Care Armor Senior Sergeant Name Role Phone Neymar Ford MD PCP [...] INFLUENZA VACCINE 06/06/2020 Results Not on fileafter 03/16/2019 Insurance Type Payer Benefit Subscriber ID Effective Phone Address Plan / Dates Group HMO [employer] CIGNA xxxxxxxxxxx [id number] [employer] resent [place] HMO MCR ADV Advance Directives For more information, please contact: [phone] Patient Community Outreach Coordinator Explanation Type Date Recorded Advance Directives, 01/28/2016 1:02 PM Living Will and Medical Power of Quill [employer]er Advance Directives, 11/27/2016 1:16 PM Living Will and Medical Power of [employer] Advance Directives, 05/13/2018 9:31 AM Living Will and Medical Power of [employer]ill [employer]er Date Inactivated Comments Code Status Date Activated 03/19/2018 9:24 PM Full Code 03/16/2018 11:28 PM Code Status decision reached by: Patient
--- OUTSIDE RECORDS SUMMARY | 2020-03-16 14:17 | XMS REPORT | Clinical Summary ---
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 Name Role Phone PCP Unavailable Allergies No [...] & CORONARY ANGIOS 10/31/2019 Surgery 10/27/2019 Travel Tnoy Cai MD Arana, MD Asif Collins, MD Danii Severe aortic stenosis; Delirium; Acute kidney injury (HCC); Acute on chronic systolic heart failure (HCC); Chronic atrial fibrillation; Essential hypertension; Type 2 diabetes mellitus with stage 3 chronic kidney disease, unspecified whether nursing home insulin use (HCC); Acute on chronic diastolic (congestive) heart failure (HCC) 10/26/2019 Hospital Cardiology - Encounter 11/13/2019 after 03/16/2019 Social History Date Tobacco Use Types Packs/Day Years Used Never Assessed Sex Assigned at Date Recorded Not on file Industry Job Start Date Occupation Not on file Not on file Not on file Travel End Travel History Travel Start No recent travel history available. Last Filed Vital Signs Time Taken Vital Sign Reading 11/13/2019 11:35 AM [facility] Blood Pressure 174/82 11/13/2019 2:05 PM [facility] Pulse 78 11/13/2019 11:35 AM [facility] Temperature 36.8 C (98.3 F) 11/13/2019 2:05 PM [facility]ERSONAL [facility]F Respiratory Rate 18 11/13/2019 2:05 PM [facility]ERSONAL [facility]F Oxygen Saturation 98% 11/13/2019 8:20 AM PERSONAL [facility]F Inhaled Oxygen 21% Concentration 11/13/2019 8:12 AM [facility]ERSONAL [facility]F Weight 72.4 kg (159 lb 9.6 oz) 10/26/2019 11:40 PM [facility]AL [facility] Height 172.7 cm (5' 8") 11/13/2019 8:12 AM [facility] Body Mass Index 24.27 Plan of Treatment Not on file Implants Device Identifier Shelf Expiration Date Model / Serial / L ot Implanted Type Area Manufactur er 09/12/2020 EVPROPLUS-26US / / [id number] Valve Evolut Pro+ Trnscthtr 34 IMPLANTS [employer]: Evproplus-26us - [id number] STRUCTURAL Implanted: Qty: 1 on 11/08/2019 by HEART Adam Wynne MD Procedures Comments Procedure Name Priority Date/Time Associated Diag nosis RHYTHM STRIP - SCAN 12/03/2019 4:01 PM [facility]ERSONAL [facility]F RHYTHM STRIP - SCAN 11/27/2019 12:31 PM PERSONAL [facility]F VASCULAR DIAGRAM -SCAN 11/21/2019 2:00 PM PERSONAL [facility]F RHYTHM STRIP - SCAN 11/14/2019 1:33 PM [facility]ERSONAL [facility] REPORT OF PROCEDURE - 11/14/2019 ENDOSCOPY SCAN 11:13 AM [facility]ERSONAL [facility] CARDIAC CATH REPORT - 11/14/2019 SCAN 11:13 AM PERSONAL [facility]F CARDIAC CATH REPORT - 11/14/2019 SCAN 11:13 AM PERSONAL [facility]F PERMANENT LAB REPORT - 11/14/2019 SCAN 11:13 AM PERSONAL [facility]F RHYTHM STRIP - SCAN 11/14/2019 11:13 AM PERSONAL CHEF RHYTHM STRIP - SCAN 11/14/2019 11:13 AM PERSONAL [facility]F POCT-GLUCOSE METER Routine 11/13/2019 11:42 AM PERSONAL CHEF POCT-GLUCOSE METER Routine 11/13/2019 7:33 AM PERSONAL [facility]F CBC W/PLT COUNT & AUTO Routine 11/13/2019 DIFFERENTIAL 4:43 AM PERSONAL CHEF HEPARIN ASSAY - Routine 11/13/2019 UNFRACTIONATED 4:43 AM PERSONAL [facility]F PROTHROMBIN TIME/INR Routine 11/13/2019 4:43 AM PERSONAL [facility]F FIBRINOGEN Routine 11/13/2019 4:43 AM PERSONAL [facility]F CBC W/PLT COUNT & AUTO Routine 11/13/2019 DIFFERENTIAL 4:43 AM PERSONAL CHEF MAGNESIUM Routine 11/13/2019 4:43 AM PERSONAL [facility]F BASIC METABOLIC PANEL (7) Routine 11/13/2019 4:43 AM PERSONAL CHEF POCT-GLUCOSE METER Routine 11/12/2019 9:57 PM PERSONAL CHEF POCT-GLUCOSE METER Routine 11/12/2019 5:43 PM PERSONAL CHEF RHYTHM STRIP - SCAN 11/12/2019 3:50 PM PERSONAL CHEF POCT-GLUCOSE METER Routine 11/12/2019 12:23 PM PERSONAL CHEF POCT-GLUCOSE METER Routine 11/12/2019 7:53 AM PERSONAL CHEF (CELLAVISION MANUAL DIFF) Routine 11/12/2019 5:01 AM PERSONAL CHEF CBC W/PLT COUNT & AUTO Routine 11/12/2019 DIFFERENTIAL 5:01 AM PERSONAL CHEF HEPARIN ASSAY - Routine 11/12/2019 UNFRACTIONATED 5:01 AM PERSONAL CHEF PROTHROMBIN TIME/INR Routine 11/12/2019 5:01 AM PERSONAL CHEF FIBRINOGEN Routine 11/12/2019 5:01 AM PERSONAL CHEF CBC W/PLT COUNT & AUTO Routine 11/12/2019 DIFFERENTIAL 5:01 AM PERSONAL CHEF MAGNESIUM Routine 11/12/2019 5:01 AM PERSONAL CHEF BASIC METABOLIC PANEL (7) Routine 11/12/2019 5:01 AM PERSONAL [facility]F ECHOCARDIOGRAM REPORT - 11/11/2019 SCAN 9:21 PM PERSONAL CHEF POCT-GLUCOSE METER Routine 11/11/2019 8:49 PM PERSONAL CHEF POCT-GLUCOSE METER Routine 11/11/2019 5:03 PM PERSONAL CHEF POCT-GLUCOSE METER Routine 11/11/2019 11:49 AM PERSONAL CHEF POCT-GLUCOSE METER Routine 11/11/2019 8:17 AM PERSONAL CHEF CBC W/PLT COUNT & AUTO Routine 11/11/2019 DIFFERENTIAL 5:07 AM PERSONAL CHEF HEPARIN ASSAY - Routine 11/11/2019 UNFRACTIONATED 5:07 AM PERSONAL CHEF PROTHROMBIN TIME/INR Routine 11/11/2019 5:07 AM PERSONAL CHEF FIBRINOGEN Routine 11/11/2019 5:07 AM PERSONAL CHEF CBC W/PLT COUNT & AUTO Routine 11/11/2019 DIFFERENTIAL 5:07 AM PERSONAL CHEF MAGNESIUM Routine 11/11/2019 5:07 AM PERSONAL CHEF BASIC METABOLIC PANEL (7) Routine 11/11/2019 5:07 AM PERSONAL CHEF POCT-GLUCOSE METER Routine 11/10/2019 9:07 PM PERSONAL CHEF POCT-GLUCOSE METER Routine 11/10/2019 8:21 PM PERSONAL CHEF POCT-GLUCOSE METER Routine 11/10/2019 4:46 PM PERSONAL CHEF POCT-GLUCOSE METER Routine 11/10/2019 11:10 AM PERSONAL CHEF POCT-GLUCOSE METER Routine 11/10/2019 7:27 AM PERSONAL CHEF CBC W/PLT COUNT & AUTO Routine 11/10/2019 DIFFERENTIAL 4:13 AM PERSONAL CHEF HEPARIN ASSAY - Routine 11/10/2019 UNFRACTIONATED 4:13 AM PERSONAL CHEF PROTHROMBIN TIME/INR Routine 11/10/2019 4:13 AM PERSONAL CHEF FIBRINOGEN Routine 11/10/2019 4:13 AM PERSONAL CHEF CBC W/PLT COUNT & AUTO Routine 11/10/2019 DIFFERENTIAL 4:13 AM PERSONAL [facility]F XR CHEST 1 VIEW Routine 11/10/2019 PORTABLE/BEDSIDE 2:43 AM PERSONAL [facility]F LACTIC ACID, VENOUS Routine 11/10/2019 1:34 AM PERSONAL [facility]F TROPONIN I Routine 11/10/2019 1:22 AM PERSONAL CHEF MAGNESIUM Routine 11/10/2019 1:22 AM PERSONAL CHEF BASIC METABOLIC PANEL (7) Routine 11/10/2019 1:22 AM PERSONAL CHEF ECG 12-LEAD Routine 11/10/2019 12:43 AM PERSONAL CHEF POCT-GLUCOSE METER Routine 11/09/2019 10:05 PM PERSONAL CHEF ECHOCARDIOGRAM REPORT - 11/09/2019 SCAN 9:21 PM PERSONAL CHEF TRANSFUSION SERVICE 11/09/2019 REPORT - SCAN 6:02 PM PERSONAL [facility]F POCT-GLUCOSE METER Routine 11/09/2019 5:00 PM PERSONAL [facility]F 2D ECHO W/ DOPPLER STAT 11/09/2019 (CW/PW/COLOR) 1:57 PM PERSONAL CHEF POCT-GLUCOSE METER Routine 11/09/2019 8:38 AM PERSONAL CHEF MAGNESIUM Routine 11/09/2019 6:12 AM PERSONAL CHEF BASIC METABOLIC PANEL (7) Routine 11/09/2019 6:12 AM PERSONAL [facility]F XR CHEST 1 VIEW Routine 11/09/2019 PORTABLE/BEDSIDE 5:51 AM PERSONAL CHEF CBC W/PLT COUNT & AUTO Routine 11/09/2019 DIFFERENTIAL 4:17 AM PERSONAL CHEF APTT Routine 11/09/2019 4:17 AM PERSONAL CHEF HEPARIN ASSAY - Routine 11/09/2019 UNFRACTIONATED 4:17 AM PERSONAL CHEF PROTHROMBIN TIME/INR Routine 11/09/2019 4:17 AM PERSONAL CHEF FIBRINOGEN Routine 11/09/2019 4:17 AM PERSONAL CHEF CBC W/PLT COUNT & AUTO Routine 11/09/2019 DIFFERENTIAL 4:17 AM PERSONAL CHEF POCT-GLUCOSE METER Routine 11/08/2019 9:01 PM PERSONAL CHEF THROMBOELASTOGRAPH (TEG) Routine 11/08/2019 8:59 PM PERSONAL [facility]F HEMOGLOBIN A1C Routine 11/08/2019 8:59 PM PERSONAL CHEF POCT-GLUCOSE METER Routine 11/08/2019 5:53 PM PERSONAL CHEF THROMBOELASTOGRAPH (TEG) Routine 11/08/2019 3:26 PM PERSONAL CHEF ANTITHROMBIN III AP Routine 11/08/2019 3:26 PM PERSONAL CHEF D-DIMER Routine 11/08/2019 3:26 PM PERSONAL CHEF APTT Routine 11/08/2019 3:26 PM PERSONAL CHEF APTT Routine 11/08/2019 3:26 PM PERSONAL CHEF XR CHEST 1 VIEW STAT 11/08/2019 PORTABLE/BEDSIDE 2:55 PM PERSONAL CHEF POCT-GLUCOSE METER Routine 11/08/2019 2:47 PM PERSONAL CHEF PREPARE LEUKO-REDUCED RBC Routine 11/08/2019 2:15 PM PERSONAL CHEF POCT-ACT Routine 11/08/2019 12:44 PM PERSONAL CHEF POCT-ACT Routine 11/08/2019 12:33 PM PERSONAL [facility]F TAVR / HERLINDA MCR - IP 11/08/2019 Nonrheumatic a ortic valve PROC ONLY 12:19 PM [facility]ERSONAL [facility]F stenosis Case Notes (2)CASE 1431/ ANESTHESIA / SILVIANO TRANSESOPHAGEAL ECHO Routine 11/08/2019 10:49 AM PERSONAL [facility]F CONT WAVE PULSED DOPPLER Routine 11/08/2019 10:04 AM PERSONAL [facility]F COLOR-FLOW MAPPING Routine 11/08/2019 10:04 AM PERSONAL [facility]F ECG 12-LEAD Routine 11/08/2019 5:46 AM PERSONAL [facility]F Procedure Note - Interface, External Ris In - 11/08/2019 5:46 AM PERSONAL [facility]F Ventricula r Rate 88 BPM Atrial Rate 72 BPM QRS Duration 100 ms Q-T Interval 398 ms QTC Calculatio n(Bazett) 481 ms R [place] -56 degrees T [place] 108 degrees Atrial fibrillati on Left axis deviation Septal infarct , age undetermin ed Abnormal ECG No previous ECGs available ECG 12-LEAD STAT 11/08/2019 5:46 AM PERSONAL CHEF ABORH, MANUAL STAT 11/08/2019 3:21 AM PERSONAL [facility]F CBC W/PLT COUNT & AUTO Routine 11/08/2019 DIFFERENTIAL 2:26 AM PERSONAL CHEF ABORH, MANUAL STAT 11/08/2019 2:26 AM PERSONAL [facility]F TYPE AND SCREEN, STAT 11/08/2019 AUTOMATED 2:26 AM PERSONAL CHEF PROTHROMBIN TIME/INR STAT 11/08/2019 2:26 AM PERSONAL CHEF B-TYPE NATRIURETIC FACTOR Routine 11/08/2019 (BNP) 2:26 AM PERSONAL CHEF CBC W/PLT COUNT & AUTO Routine 11/08/2019 DIFFERENTIAL 2:26 AM PERSONAL CHEF MAGNESIUM Routine 11/08/2019 2:26 AM PERSONAL CHEF BASIC METABOLIC PANEL (7) Routine 11/08/2019 2:26 AM PERSONAL CHEF POCT-GLUCOSE METER Routine 11/07/2019 9:50 PM PERSONAL CHEF POCT-GLUCOSE METER Routine 11/07/2019 9:15 PM PERSONAL CHEF POCT-GLUCOSE METER Routine 11/07/2019 4:58 PM PERSONAL CHEF POCT-GLUCOSE METER Routine 11/07/2019 11:47 AM PERSONAL CHEF POCT-GLUCOSE METER Routine 11/07/2019 7:27 AM PERSONAL CHEF CBC W/PLT COUNT & AUTO Routine 11/07/2019 DIFFERENTIAL 4:56 AM PERSONAL CHEF CBC W/PLT COUNT & AUTO Routine 11/07/2019 DIFFERENTIAL 4:56 AM PERSONAL CHEF MAGNESIUM Routine 11/07/2019 4:56 AM PERSONAL CHEF BASIC METABOLIC PANEL (7) Routine 11/07/2019 4:56 AM PERSONAL CHEF POCT-GLUCOSE METER Routine 11/06/2019 9:24 PM PERSONAL CHEF POCT-GLUCOSE METER Routine 11/06/2019 4:50 PM PERSONAL CHEF POCT-GLUCOSE METER Routine 11/06/2019 12:01 PM PERSONAL CHEF POCT-GLUCOSE METER Routine 11/06/2019 8:02 AM PERSONAL CHEF (CELLAVISION MANUAL DIFF) Routine 11/06/2019 4:40 AM PERSONAL CHEF CBC W/PLT COUNT & AUTO Routine 11/06/2019 DIFFERENTIAL 4:40 AM PERSONAL CHEF CBC W/PLT COUNT & AUTO Routine 11/06/2019 DIFFERENTIAL 4:40 AM PERSONAL CHEF APTT Routine 11/06/2019 4:39 AM PERSONAL CHEF MAGNESIUM Routine 11/06/2019 4:39 AM PERSONAL CHEF BASIC METABOLIC PANEL (7) Routine 11/06/2019 4:39 AM PERSONAL CHEF APTT Routine 11/05/2019 10:40 PM PERSONAL CHEF POCT-GLUCOSE METER Routine 11/05/2019 10:18 PM PERSONAL CHEF POCT-GLUCOSE METER Routine 11/05/2019 4:55 PM PERSONAL CHEF POCT-GLUCOSE METER Routine 11/05/2019 1:14 PM PERSONAL CHEF POCT-GLUCOSE METER Routine 11/05/2019 7:09 AM PERSONAL [facility]F PULMONARY FUNCTION - SCAN 11/05/2019 6:40 AM PERSONAL CHEF CBC W/PLT COUNT & AUTO Routine 11/05/2019 DIFFERENTIAL 5:42 AM PERSONAL CHEF CBC W/PLT COUNT & AUTO Routine 11/05/2019 DIFFERENTIAL 5:42 AM PERSONAL CHEF MAGNESIUM Routine 11/05/2019 5:42 AM PERSONAL CHEF BASIC METABOLIC PANEL (7) Routine 11/05/2019 5:42 AM PERSONAL CHEF POCT-GLUCOSE METER Routine 11/04/2019 9:29 PM PERSONAL CHEF APTT Routine 11/04/2019 8:46 PM PERSONAL CHEF POCT-GLUCOSE METER Routine 11/04/2019 5:59 PM PERSONAL CHEF APTT Routine 11/04/2019 2:32 PM PERSONAL CHEF POCT-GLUCOSE METER Routine 11/04/2019 11:50 AM PERSONAL CHEF CTA CHEST Routine 11/04/2019 10:49 AM PERSONAL CHEF CTA ABDOMEN & PELVIS Routine 11/04/2019 10:49 AM PERSONAL CHEF POCT-GLUCOSE METER Routine 11/04/2019 7:12 AM PERSONAL CHEF (CELLAVISION MANUAL DIFF) Routine 11/04/2019 5:03 AM PERSONAL CHEF CBC W/PLT COUNT & AUTO Routine 11/04/2019 DIFFERENTIAL 5:03 AM PERSONAL CHEF APTT Routine 11/04/2019 5:03 AM PERSONAL CHEF CBC W/PLT COUNT & AUTO Routine 11/04/2019 DIFFERENTIAL 5:03 AM PERSONAL CHEF MAGNESIUM Routine 11/04/2019 5:03 AM PERSONAL CHEF BASIC METABOLIC PANEL (7) Routine 11/04/2019 5:03 AM PERSONAL CHEF POCT-GLUCOSE METER Routine 11/03/2019 9:33 PM PERSONAL CHEF APTT Routine 11/03/2019 7:40 PM PERSONAL CHEF POCT-GLUCOSE METER Routine 11/03/2019 5:05 PM PERSONAL CHEF OSMOLALITY, SERUM Routine 11/03/2019 4:09 PM PERSONAL CHEF OSMOLALITY, URINE Routine 11/03/2019 4:08 PM PERSONAL CHEF APTT Routine 11/03/2019 11:50 AM PERSONAL CHEF POCT-GLUCOSE METER Routine 11/03/2019 11:47 AM PERSONAL CHEF (MANUAL DIFFERENTIAL) Routine 11/03/2019 4:05 AM PERSONAL CHEF CBC W/PLT COUNT & AUTO Routine 11/03/2019 DIFFERENTIAL 4:05 AM PERSONAL CHEF APTT Routine 11/03/2019 4:05 AM PERSONAL CHEF PROTHROMBIN TIME/INR Routine 11/03/2019 4:05 AM PERSONAL CHEF CBC W/PLT COUNT & AUTO Routine 11/03/2019 DIFFERENTIAL 4:05 AM PERSONAL CHEF MAGNESIUM Routine 11/03/2019 4:05 AM PERSONAL CHEF BASIC METABOLIC PANEL (7) Routine 11/03/2019 4:05 AM PERSONAL CHEF US RENAL COMPLETE Routine 11/03/2019 12:51 AM PERSONAL CHEF APTT Routine 11/02/2019 10:24 PM PERSONAL CHEF POCT-GLUCOSE METER Routine 11/02/2019 9:11 PM PERSONAL CHEF POCT-GLUCOSE METER Routine 11/02/2019 5:37 PM PERSONAL CHEF APTT Routine 11/02/2019 4:06 PM PERSONAL CHEF UREA NITROGEN, RANDOM Routine 11/02/2019 URINE 3:24 PM PERSONAL CHEF CREATININE, RANDOM URINE Routine 11/02/2019 3:24 PM PERSONAL CHEF SODIUM, RANDOM URINE Routine 11/02/2019 3:24 PM PERSONAL CHEF URINALYSIS W/ MICROSCOPIC Routine 11/02/2019 3:24 PM PERSONAL CHEF APTT Routine 11/02/2019 2:16 PM PERSONAL CHEF POCT-GLUCOSE METER Routine 11/02/2019 12:25 PM PERSONAL CHEF POCT-GLUCOSE METER Routine 11/02/2019 7:23 AM PERSONAL CHEF (CELLAVISION MANUAL DIFF) Routine 11/02/2019 4:22 AM PERSONAL CHEF CBC W/PLT COUNT & AUTO Routine 11/02/2019 DIFFERENTIAL 4:22 AM PERSONAL CHEF PROTHROMBIN TIME/INR Routine 11/02/2019 4:22 AM PERSONAL CHEF CBC W/PLT COUNT & AUTO Routine 11/02/2019 DIFFERENTIAL 4:22 AM PERSONAL CHEF MAGNESIUM Routine 11/02/2019 4:22 AM PERSONAL CHEF BASIC METABOLIC PANEL (7) Routine 11/02/2019 4:22 AM PERSONAL CHEF PERIPHERAL VASCULAR 11/01/2019 REPORT - SCAN 9:21 PM PERSONAL CHEF POCT-GLUCOSE METER Routine 11/01/2019 9:15 PM PERSONAL CHEF POCT-GLUCOSE METER Routine 11/01/2019 6:08 PM PERSONAL CHEF SPIROMETRY Routine 11/01/2019 1:31 PM PERSONAL CHEF PROTHROMBIN TIME/INR Add-On 11/01/2019 8:53 AM PERSONAL CHEF APTT Routine 11/01/2019 8:53 AM PERSONAL CHEF POCT-GLUCOSE METER Routine 11/01/2019 7:35 AM PERSONAL CHEF (CELLAVISION MANUAL DIFF) Routine 11/01/2019 4:54 AM PERSONAL CHEF CBC W/PLT COUNT & AUTO Routine 11/01/2019 DIFFERENTIAL 4:54 AM PERSONAL CHEF APTT Add-On 11/01/2019 4:54 AM PERSONAL CHEF PROTHROMBIN TIME/INR Routine 11/01/2019 4:54 AM PERSONAL CHEF CBC W/PLT COUNT & AUTO Routine 11/01/2019 DIFFERENTIAL 4:54 AM PERSONAL CHEF MAGNESIUM Routine 11/01/2019 4:54 AM PERSONAL CHEF BASIC METABOLIC PANEL (7) Routine 11/01/2019 4:54 AM PERSONAL CHEF CAROTID DOPPLER BILATERAL Routine 10/31/2019 7:40 PM PERSONAL CHEF POCT-GLUCOSE METER Routine 10/31/2019 6:01 PM PERSONAL CHEF POCT-GLUCOSE METER Routine 10/31/2019 12:18 PM PERSONAL CHEF POCT-ACT Routine 10/31/2019 11:10 AM PERSONAL CHEF R CATH & CORONARY ANGIOS 10/31/2019 Aortic valve stenosis, 10:46 AM PERSONAL CHEF etiology of cardiac valve disease unspecified POCT-GLUCOSE METER Routine 10/31/2019 8:11 AM PERSONAL CHEF (CELLAVISION MANUAL DIFF) Routine 10/31/2019 5:20 AM PERSONAL CHEF CBC W/PLT COUNT & AUTO Routine 10/31/2019 DIFFERENTIAL 5:20 AM PERSONAL CHEF APTT Routine 10/31/2019 5:20 AM PERSONAL CHEF CBC W/PLT COUNT & AUTO Routine 10/31/2019 DIFFERENTIAL 5:20 AM PERSONAL CHEF MAGNESIUM Routine 10/31/2019 5:20 AM PERSONAL CHEF BASIC METABOLIC PANEL (7) Routine 10/31/2019 5:20 AM PERSONAL CHEF POCT-GLUCOSE METER Routine 10/30/2019 9:48 PM PERSONAL CHEF POCT-GLUCOSE METER Routine 10/30/2019 4:07 PM PERSONAL CHEF HAPTOGLOBIN Routine 10/30/2019 2:35 PM PERSONAL CHEF LACTATE DEHYDROGENASE Routine 10/30/2019 (LDH) 2:35 PM PERSONAL CHEF HEMOGLOBIN AND HEMATOCRIT Routine 10/30/2019 2:35 PM PERSONAL CHEF POCT-GLUCOSE METER Routine 10/30/2019 12:10 PM PERSONAL CHEF POCT-GLUCOSE METER Routine 10/30/2019 7:19 AM PERSONAL CHEF (CELLAVISION MANUAL DIFF) Routine 10/30/2019 4:19 AM PERSONAL CHEF CBC W/PLT COUNT & AUTO Routine 10/30/2019 DIFFERENTIAL 4:19 AM PERSONAL CHEF HEPATIC FUNCTION PANEL Add-On 10/30/2019 4:19 AM PERSONAL CHEF FERRITIN Add-On 10/30/2019 4:19 AM PERSONAL CHEF IRON, TIBC, % SAT. Add-On 10/30/2019 (WITHOUT FERRITIN) 4:19 AM PERSONAL CHEF APTT Routine 10/30/2019 4:19 AM PERSONAL CHEF TSH Routine 10/30/2019 4:19 AM PERSONAL CHEF RPR Routine 10/30/2019 4:19 AM PERSONAL CHEF VITAMIN B12 AND FOLATE Routine 10/30/2019 4:19 AM PERSONAL CHEF CBC W/PLT COUNT & AUTO Routine 10/30/2019 DIFFERENTIAL 4:19 AM PERSONAL CHEF MAGNESIUM Routine 10/30/2019 4:19 AM PERSONAL CHEF BASIC METABOLIC PANEL (7) Routine 10/30/2019 4:19 AM PERSONAL CHEF POCT-GLUCOSE METER Routine 10/29/2019 8:19 PM PERSONAL CHEF POCT-GLUCOSE METER Routine 10/29/2019 5:21 PM PERSONAL CHEF POCT-GLUCOSE METER Routine 10/29/2019 11:43 AM PERSONAL CHEF BASIC METABOLIC PANEL (7) Add-On 10/29/2019 3:38 AM PERSONAL CHEF APTT Routine 10/29/2019 3:38 AM PERSONAL CHEF CBC (HEMOGRAM ONLY) Routine 10/29/2019 3:38 AM PERSONAL CHEF MAGNESIUM Routine 10/29/2019 3:38 AM PERSONAL CHEF ECHOCARDIOGRAM REPORT - 10/28/2019 SCAN 9:22 PM PERSONAL CHEF POCT-GLUCOSE METER Routine 10/28/2019 9:12 PM PERSONAL CHEF POCT-GLUCOSE METER Routine 10/28/2019 5:34 PM PERSONAL CHEF POCT-GLUCOSE METER Routine 10/28/2019 4:07 PM PERSONAL CHEF APTT Routine 10/28/2019 12:55 PM PERSONAL CHEF POCT-GLUCOSE METER Routine 10/28/2019 12:22 PM PERSONAL CHEF 2D ECHO W/ DOPPLER Routine 10/28/2019 (CW/PW/COLOR) 8:44 AM PERSONAL CHEF APTT Routine 10/28/2019 4:07 AM PERSONAL CHEF CBC (HEMOGRAM ONLY) Routine 10/28/2019 4:07 AM PERSONAL CHEF MAGNESIUM Routine 10/28/2019 4:07 AM PERSONAL CHEF HEPATIC FUNCTION PANEL Routine 10/28/2019 4:07 AM PERSONAL CHEF BASIC METABOLIC PANEL (7) Routine 10/28/2019 4:07 AM PERSONAL CHEF POCT-GLUCOSE METER Routine 10/27/2019 9:10 PM PERSONAL CHEF APTT Routine 10/27/2019 8:20 PM PERSONAL CHEF PROCALCITONIN Routine 10/27/2019 8:20 PM PERSONAL CHEF POCT-GLUCOSE METER Routine 10/27/2019 6:[address] BRAIN WITHOUT IV STAT 10/27/2019 CONTRAST 2:07 PM PERSONAL CHEF TROPONIN I Routine 10/27/2019 12:32 PM PERSONAL CHEF APTT Routine 10/27/2019 11:52 AM PERSONAL CHEF URINALYSIS W/ REFLEX Routine 10/27/2019 URINE CULTURE 8:44 AM PERSONAL CHEF XR CHEST 1 VIEW Routine 10/27/2019 PORTABLE/BEDSIDE 8:14 AM PERSONAL CHEF BLOOD CULTURE Routine 10/27/2019 6:58 AM PERSONAL CHEF AMMONIA Routine 10/27/2019 6:57 AM PERSONAL CHEF BLOOD CULTURE Routine 10/27/2019 6:05 AM PERSONAL CHEF (CELLAVISION MANUAL DIFF) Routine 10/27/2019 6:01 AM PERSONAL CHEF CBC W/PLT COUNT & AUTO Routine 10/27/2019 DIFFERENTIAL 6:01 AM PERSONAL CHEF TROPONIN I Routine 10/27/2019 6:01 AM PERSONAL CHEF B-TYPE NATRIURETIC FACTOR Routine 10/27/2019 (BNP) 6:01 AM PERSONAL CHEF APTT Routine 10/27/2019 6:01 AM PERSONAL CHEF APTT Routine 10/27/2019 6:01 AM PERSONAL CHEF LACTIC ACID, VENOUS Routine 10/27/2019 6:01 AM PERSONAL CHEF TSH/FREE T4 IF INDICATED Routine 10/27/2019 6:01 AM PERSONAL CHEF CBC W/PLT COUNT & AUTO Routine 10/27/2019 DIFFERENTIAL 6:01 AM PERSONAL CHEF PHOSPHORUS Routine 10/27/2019 6:01 AM PERSONAL CHEF MAGNESIUM Routine 10/27/2019 6:01 AM PERSONAL CHEF PROTHROMBIN TIME/INR Routine 10/27/2019 6:01 AM PERSONAL CHEF HEPATIC FUNCTION PANEL Routine 10/27/2019 6:01 AM PERSONAL CHEF BASIC METABOLIC PANEL (7) Routine 10/27/2019 6:01 AM PERSONAL CHEF POCT-GLUCOSE METER Routine 10/27/2019 5:59 AM PERSONAL CHEF after 03/16/2019 Results * RHYTHM STRIP - SCAN (12/03/2019 4:01 PM PERSONAL CHEF) Only the most recent of 6 results within the time period is included. Narrative Performed At This result has an attachment that is n ot available. * VASCULAR DIAGRAM -SCAN (11/21/2019 2:00 PM PERSONAL CHEF) Narrative Performed At This result has an attachment that is n ot available. * EKG-SCANNED (11/14/2019 11:13 AM PERSONAL CHEF) Narrative Performed At This result has an attachment that is n ot available. * CARDIAC CATH REPORT - SCAN (11/14/2019 11:13 AM PERSONAL CHEF) Narrative Performed At This result has an attachment that is n ot available. * CARDIAC CATH REPORT - SCAN (11/14/2019 11:13 AM PERSONAL CHEF) Narrative Performed At This result has an attachment that is n ot available. * PERMANENT LAB REPORT - SCAN (11/14/2019 11:13 AM PERSONAL CHEF) Narrative Performed At This result has an attachment that is n ot available. * POC-Glucose meter (11/13/2019 11:42 AM PERSONAL CHEF) Only the most recent of 65 results within the time period is included. POC-Glucose Meter 372 (H)Comment: : TESTED AT 70 - 110 mg/dL [address] [address]: Buy Boat Operator/Senior Product Marketing Manager ID = [id number] for ULISES KELLY Specimen Blood Performing Organization Address [facility] one Number [address] [facility] * Heparin Assay - Unfractionated (11/13/2019 4:43 AM PERSONAL CHEF) Only the most recent of 5 results within the time period is included. Anti 10A-Unfractionated 1.10 (HH) 0.30 - 0.70 u/ml [facility] Heparin [facility] Specimen Blood Narrative Performed At Recommendations for Monitoring Unfractionated Heparin [facility] Therapeutic Range: 0.3-0.7 u/mL with continuous I V infusion [facility] Performing Organization Address [facility] Ph one Number [address] [facility] * CBC with platelet count + automated diff (11/13/2019 4:43 AM PERSONAL CHEF) Only the most recent of 16 results within the time period is included. WBC 6.1 3.5 - 10.5 K/L [facility] RBC 3.73 (L) 4.63 - 6.08 M/L [facility] Hemoglobin 10.0 (L) 13.7 - 17.5 GM/DL [facility] Hematocrit 32.1 (L) 40.1 - 51.0 % [facility] MCV 86.1 79.0 - 92.2 fL [facility] MCH 26.8 25.7 - 32.2 pg [facility] MCHC 31.2 (L) 32.3 - 36.5 GM/DL [facility] RDW 18.2 (H) 11.6 - 14.4 % [facility] Platelets 160 150 - 450 K/CU MM [facility] MPV 10.4 9.4 - 12.4 fL [facility] nRBC 0 0 - 0 /100 WBC [facility] % Neutros 68 % [facility] % Lymphs 15 % [facility] % Monos 12 % [facility] % Eos 3 % [facility] % Baso 1 % [facility] # Neutros 4.14 1.78 - 5.38 K/L [facility] # Lymphs 0.90 (L) 1.32 - 3.57 K/L [facility] # Monos 0.75 0.30 - 0.82 K/L [facility] # Eos 0.15 0.04 - 0.54 K/L [facility] # Baso 0.08 0.01 - 0.08 K/L [facility] Immature 1 0 - 1 % [facility] Granulocytes-Relative [facility] Specimen Blood Performing Organization Address [facility] Ph one Number [address] [facility] * Prothrombin time/INR (11/13/2019 4:43 AM PERSONAL CHEF) Only the most recent of 11 results within the time period is included. Protime 17.9 (H) 11.9 - 14.2 seconds [facility] INR 1.5 <=5.9 [facility] Specimen Blood Narrative Performed At Effective 04/03/2019: PT Reference Range Change [facility] New: 11.9-14.2Previous: 11.7-14.7 [facility] MEDICAL CE NTER RECOMMENDED COUMADIN/WARFARIN INR THERA PY RANGES STANDARD DOSE: 2.0-3.0Includes: PRO PHYLAXIS for venous thrombosis, systemic embolization; TREATMENT for venous thro mbosis and/or pulmonary embolus. HIGH RISK: Target INR is 2.5-3.5 for pa tients wiht mechanical heart valves. Performing Organization Address [facility] one Number [address] [facility] * Fibrinogen (11/13/2019 4:43 AM PERSONAL CHEF) Only the most recent of 5 results within the time period is included. Fibrinogen 362 225 - 434 mg/dl [facility] Specimen Blood Performing Organization Address [facility] Ph one Number [address] [facility] * Magnesium (11/13/2019 4:43 AM PERSONAL CHEF) Only the most recent of 18 results within the time period is included. Magnesium 1.7Comment: Specimen slightly 1.6 - 2.6 mg/dL [facility] Specimen Blood Performing Organization Address City/[facility] one Number [place] [address] [facility] * Basic metabolic panel (11/13/2019 4:43 AM PERSONAL CHEF) Only the most recent of 18 results within the time period is included. Sodium 137 136 - 145 meq/L [facility] Potassium 4.6Comment: Specimen slightly 3.5 - 5.1 meq/L [facility] Chloride 105 98 - 107 meq/L [facility] CO2 25 22 - 29 meq/L [facility] BUN 30 (H) 7 - 21 mg/dL [facility] Creatinine 1.36 (H)Comment: Specimen 0.57 - 1.25 mg/dL [facility] slightly hemolyzed [facility] Glucose 164 (H) 70 - 105 mg/dL [facility] Calcium 9.0 8.4 - 10.2 mg/dL [facility] EGFR 50Comment: ESTIMATED GFR IS mL/min/1.73 sq m [facility] NOT ACCURATE CREATININE [facility] CLEARANCE IN PREDICTING GLOMERULAR FILTRATION RATE. ESTIMATED GFR IS NOT APPLICABLE FOR DIALYSIS PATIENTS. Specimen Blood Performing Organization Address City/[facility] one Number [address] [facility] * Manual Differential (11/12/2019 5:01 AM PERSONAL CHEF) Only the most recent of 8 results within the time period is included. % Neutros 80 % [facility] % Lymphs 8 % [facility] % Monos 8 % [facility] % Eos 1 % [facility] % Baso 1 % [facility] % Atypical Lymphs 2 (H) 0 - 0 % [facility] # Neutros 4.40 1.78 - 5.38 K/ul [facility] # Lymphs 0.44 (L) 1.32 - 3.57 K/ul [facility] # Monos 0.44 0.30 - 0.82 K/uL [facility] # Eos 0.06 0.04 - 0.54 K/uL [facility] # Baso 0.06 0.01 - 0.08 K/uL [facility] # Atypical Lymphs 0.11 (H) 0.00 - 0.00 K/uL [facility] Total Counted 100 [facility] WBC Morphology Normal [facility] Platelet Morphology Normal [facility] Polychromasia 2+ moderate [facility] Hypochromia 1+ few [facility] Artifact Present [facility] Platelet Conc Decreased [facility] Specimen Blood Narrative Performed At Received comment: [facility] User comments: [facility] Slide comments: Performing Organization Address City/State/Zipcode Ph one Number [facility] [address], [place] [address] [facility] * ECHOCARDIOGRAM REPORT - SCAN (11/11/2019 9:21 PM PERSONAL CHEF) Narrative Performed At This result has an attachment that is n ot available. * XR chest 1 view portable / bedside (11/10/2019 2:43 AM PERSONAL CHEF) Only the most recent of 4 results within the time period is included. Specimen Narrative Performed At FINAL REPORT [employer] CLINICAL INDICATION: IABP position Comparison: 11/09/2019 No [...] External Ris In - 11/10/2019 4:35 AM PERSONAL CHEF FINAL REPORT CLINICAL INDICATION: IABP position Comparison: [...] Verified Date/Time: 11/10/2019 04:33:45 Performing Organization Address [facility] Ph one Number GE RIS * Lactic acid, venous (11/10/2019 1:34 AM PERSONAL CHEF) Only the most recent of 2 results within the time period is included. Lactate, Venous 1.7Comment: Specimen slightly 0.5 - 2.2 mmol/ L [facility] hemolyzed [facility] Specimen Blood Performing Organization Address [facility] Ph one Number [address] [address] [facility]ENTER * Troponin I (11/10/2019 1:22 AM PERSONAL CHEF) Only the most recent of 3 results within the time period is included. Troponin I 0.25 (HH) 0.00 - 0.03 ng/mL [facility] Specimen Blood Narrative Performed At Troponin I (TnI) levels must be interpreted in the co ntext of the presenting [facility] symptoms and the clinical findings. Elevated TnI leve ls indicate myocardial [facility] damage, but are not specific for ischem ic heart disease. Elevated TnI levels are seen in patients with other cardiac con ditions (including myocarditis and congestive heart failure), and slight T nI elevations occur in patients with other conditions, including sepsis, anthony al failure, acidosis, acute neurological disease, and persistent tachyarrhythmia . Performing Organization Address [facility] one Number [address] [address] [facility]ENTER * ECG 12 lead (11/10/2019 12:43 AM PERSONAL CHEF) Only the most recent of 2 results within the time period is included. Specimen Narrative Performed At Ventricular Rate 81 BPM GE MUSE Atrial Rate 73 BPM QRS Duration 100 ms Q-T Interval 402 ms QTC Calculation(Bazett) 466 ms R [place] -47 degrees T [place] 172 degrees Atrial fibrillation Left axis deviation Anteroseptal infarct , age undetermined ST & T wave abnormality, consider later al ischemia Abnormal ECG Confirmed by MD PALMER MAJID ([id number]) on 11/10/2019 1:25:58 PM Procedure Note Interface, External Ris In - 11/10/2019 1:26 PM PERSONAL CHEF Ventricular Rate 81 BPM Atrial Rate 73 BPM QRS Duration 100 ms Q-T Interval 402 ms QTC Calculation(Bazett) 466 ms R [place] -47 degrees T [place] 172 degrees Atrial fibrillation Left axis deviation Anteroseptal infarct , age undetermined ST & T wave abnormality, consider lateral ischemia Abnormal ECG Confirmed by MD PALMER MAJID ([id number]) on 11/10/2019 1:25:58 PM Performing Organization Address City/[facility] one Number GE MUSE * ECHOCARDIOGRAM REPORT - SCAN (11/09/2019 9:21 PM PERSONAL CHEF) Narrative Performed At This result has an attachment that is n ot available. * TRANSFUSION SERVICE REPORT - SCAN (11/09/2019 6:02 PM PERSONAL CHEF) Narrative Performed At This result has an attachment that is n ot available. * 2D Echo W/Doppler(CW/PW/Color) (11/09/2019 1:57 PM PERSONAL CHEF) Ejection Fraction [facility] ECHO HEARTLAB [facility] Specimen Narrative Performed At Transthoracic Echocardiography Report (TTE) [facility] ECH O HEARTLAB Demographics [facility] Patient Name Stephanie MUNOZ ate of Study11/09/2019 OSMEL [id number] Gender Male Visit Number [id number] Jodi kasper Unknown [id number] Room [id number] Number Date of Birth1930 Ref erring Physician Age89 year(s) SonographerMjae Truong [facility] RDCS AnalystAlex Kathy Interpreting Palak Vicente, PhysicianMD [...] External Ris In - 11/09/2019 6:28 PM PERSONAL CHEF Transthoracic Echocardiography Report (TTE) Demographics Patient Name BREANA, Date of Study 11/09/2019 OSMEL Gender Male Visit Number [id number] Race Unknown Room Number 6217 Number Date of 1930 Referring Physician Age 89 year(s) Industrial Controls Technician Alejandra Rios RDCS Business Project Analyst Joshua Chavez Interpreting Physician KAITLYNN Neumann Procedure [...] annular calcification. Moderate mitral regurgitation. Tricuspid Valve Ukei-yy-rtzbdrzo tricuspid regurgitation. Estimated peak systolic PA pressure [...] LVOT CI: 3.47 l/min/m^2 Performing Organization Address [facility] Ph one Number [facility] ECHO HEARTLAB [facility]CK[facility] * aPTT (11/09/2019 4:17 AM PERSONAL CHEF) Only the most recent of 25 results within the time period is included. PTT 38.1 (H) 22.5 - 36.0 seconds [facility] Specimen Blood Performing Organization Address City/[facility] Ph one Number [place] [address] [facility] * Thromboelastograph (TEG) (11/08/2019 8:59 PM PERSONAL CHEF) Only the most recent of 2 results within the time period is included. TEG Activated Clotting 11.0 (H) 4.0 - 7.0 minutes [facility] TEG Fibrinogen Activity 42.4 (L) 61.0 - 73.0 degrees C [facility] TEG Platelet Aggregation 53.4 (L) 55.0 - 65.0 MM [facility] TEG Fibrinolysis 0.0 0.0 - 5.0 % [facility] TEG-H Activated Clotting 4.2 4.0 - 7.0 minutes I [facility] TEG-H Fibrinogen Activity 74.9 (H) 61.0 - 73.0 degrees [facility] TEG-H Platelet 62.8 55.0 - 65.0 MM [facility] Aggregation [facility] TEG-H Fibrinolysis 0.2 0.0 - 5.0 % [facility] Specimen Blood Performing Organization Address [facility] one Number [place] [address] [facility] * Hemoglobin A1c (11/08/2019 8:59 PM PERSONAL CHEF) Hemoglobin A1C 8.9 (H) 4.3 - 6.1 % [facility] Specimen Blood Performing Organization Address [facility] one Number [place] [address] [facility] * D-dimer (11/08/2019 3:26 PM PERSONAL CHEF) D-Dimer, Quant 2.20 (H) <0.50 MG/L FEU [facility] Specimen Blood Narrative Performed At Intended Use: The D-Dimer Assay can be used to aid in the diagnosis of Deep Vein [facility] Thrombosis (DVT) and Pulmonary Embolism Disease (PED) . [facility] In patients with low pre-test probabili ty, various studies concerning STA Liatest D-dimer test have reported that with a cutoff value of 0.50 MG/L FEU, the Negative Predictive Value (NPV) reg arding the exclusion of thrombosis is within 95-100% range. Prior to Initiating Heparin Performing Organization Address [facility] one Number [address] [facility] * Antithrombin III (11/08/2019 3:26 PM PERSONAL CHEF) Antithrombin III 50.0 (L) 80.0 - 120.0 % [facility] Specimen Blood Narrative Performed At Prior to Initiating Heparin [facility] Performing Organization Address [facility] Number [address] [facility] * Prepare Leuko-Red RBC (11/08/2019 2:15 PM PERSONAL CHEF) CROSSMATCH COMPATIBLE SAFETRACE TX Unit ABO A Neg SAFETRACE TX UNIT NUMBER [id number] SAFETRACE TX Status RETURNED FROM ISSUE SAFETRACE TX Blood Bank Product RED BLOOD CELLS SAFETRACE TX PRODUCT CODE [id number] SAFETRACE TX CROSSMATCH COMPATIBLE SAFETRACE TX Unit ABO A Neg SAFETRACE TX UNIT NUMBER [id number] SAFETRACE TX Status RETURNED FROM ISSUE SAFETRACE TX Blood Bank Product RED BLOOD CELLS SAFETRACE TX PRODUCT CODE [id number] SAFETRACE TX Specimen Other Performing Organization Address [facility] Number SAFETRACE [place] * POC ACTIVATED CLOTTING TIME (11/08/2019 12:44 PM PERSONAL CHEF) Only the most recent of 3 results within the time period is included. Activated Clotting Time 263Comment: Reference Range: sec [facility] 74-137 seconds, [facility] Baseline/TESTED AT [address] [address] Specimen Blood Performing Organization Address [facility]/[address] 0 [phone] * Transesophageal echo (11/08/2019 10:49 AM PERSONAL CHEF) Ejection Fraction [facility] ECHO HEARTLAB [facility] Specimen Narrative Performed At Transesophageal Echocardiography Report (SILVIANO) [facility] Jillian [facility]ART[facility] Demographics [facility] Patient Name Stephanie MUNOZ ate of Study 11/08/2019 OSMEL [id number] GenderMale Visit Number [id number] [facility] [id number] Room Number 1427 Number Date of Birth1930 Ref erring Physician Adam Wynne MD Age89 year(s) Industrial Controls Technician Gorge williamson MD Physician Procedure Type of [...] annular calcif ication. Mild MV leaflet thickening. Arsv-wp-hqophiow mitral regurgitation. TricuspidMild tricuspid regurgi tation. Valve Pulmonic Normal PV structure an d function by limited views and ValveDoppler. PericardiumA small posterior perica rdial effusion is present . Procedure Note Interface, External Ris In - 11/11/2019 11:36 AM PERSONAL CHEF Transesophageal Echocardiography Report (SILVIANO) Demographics Patient Name BREANA, Date of Study 11/08/2019 OSMEL Gender Male Visit Number [id number] Race Unknown Room Number 1427 Number Date of 1930 Referring Physician Adam Wynne MD Age 89 year(s) Industrial Controls Technician Gorge Jaeger Interpreting Sameer Eric MD Physician [...] mitral annular calcification. Mild MV leaflet thickening. Qsxc-vz-rdbmqddq mitral regurgitation. Tricuspid Mild tricuspid regurgitation. Valve Pulmonic Normal PV structure and function by limited views and Valve Doppler. Pericardium A small posterior pericardial effusion is present . Performing Organization Address [facility] Number [facility] ECHO HEARTLAB [facility] * ABORH, manual (11/08/2019 3:21 AM PERSONAL CHEF) Only the most recent of 2 results within the time period is included. ABO Grouping A [facility] Rh Factor NEG [facility] Specimen Blood Performing Organization Address [address] * Type and screen, automated (11/08/2019 2:26 AM PERSONAL CHEF) Ab Scrn NEGATIVEComment: done on echo2 [facility] Specimen Blood Performing Organization Address [place] [address] [place] [address] * B-type Natriuretic Factor (BNP) (11/08/2019 2:26 AM PERSONAL CHEF) Only the most recent of 2 results within the time period is included. BNP 2,300 (H) 0 - 100 pg/mL [facility] H [facility] Specimen Blood Performing Organization Address [facility] one [address] [facility] * PULMONARY FUNCTION - SCAN (11/05/2019 6:40 AM PERSONAL CHEF) Narrative Performed At This result has an attachment that is n ot available. * CTA chest (11/04/2019 10:49 AM PERSONAL CHEF) Specimen Narrative Performed At Addendum Begins [employer] REPORT STATUS:A ADDENDUM: Study reviewed by radiology. Agree with the nonvascular findings as described below. Multiple enlarged medi astinal nodes are present, including prevascular, paratracheal, castellanos bcarinal, and bilateral perihilar regions, neoplasm cannot be e xcluded. Consider PET/CT or bronchoscopy for biopsy. Signed: Reji Fish MD Report Verified Date/Time: 9 09:54:17 Reading Location: [place] [id number] Angio Bod y Reading Room Addendum Ends [...] the contrast sheet scan helen in the Poly[employer] system for the amount and route of [...] 5.9 mm, respectively with mildtortu osity and yquc-iv-izwqkomh calcific atherosclerosis present. The minimum and the perpendicular right common iliac artery measures 10.2 and 10.4 mm, respectively with mil x-jm-wtwdjwkepsjwlitqkk and ojxm-uy-piyhhbkgcwwryhpr atheroscle rosis present. The minimum and the perpendicular rightexternal perry ac artery measures 8.1 and 83 mm, respectively with dspl-ys-aiybwgph tortuosity and mildcalcific atherosclerosis present. The minimum [...] rega rding the non-vascular findings by the Magazine Supervisor Radiologist. Signed: Tyler Chin MD Report Verified Date/Time: 9 11:43:12 Procedure Note Interface, External Ris In - 11/05/2019 9:56 AM PERSONAL CHEF Addendum Begins REPORT STATUS:A ADDENDUM: Study reviewed by radiology. Agree with the nonvascular findings as described below. Multiple enlarged mediastinal nodes are present, including prevascular, paratracheal, subcarinal, and bilateral perihilar regions, neoplasm cannot be excluded. Consider PET/CT or bronchoscopy for biopsy. Signed: Reji Fish MD Report Verified Date/Time: 11/05/2019 09:54:17 Reading Location: [facility] P048 Angio Body Reading Room Addendum Ends [...] mm, respectively with mild tortuosi ty and czur-yk-oxxtzjtc calcific atherosclerosis present. The minimum and the perpendicular right common iliac artery measures 10.2 and 10.4 mm, respectively with mild -to-moderate tortuosity and taia-jr-pcdwezvu calcific atherosclerosis present. The minimum and the perpendicular right external iliac artery measures 8.1 and 83 mm, respectively with kxcj-sf-smrqobbw tortuosity and mild calcific atherosclerosis present. The [...] regardi ng the non-vascular findings by the Magazine Supervisor Radiologist. Signed: Tyler Chin MD Report Verified Date/Time: 11/04/2019 11:43:12 Performing Organization Address City/State/Zipcode Ph one Number GE [facility] * CTA abdomen & pelvis (11/04/2019 10:49 AM PERSONAL CHEF) Specimen Narrative Performed At Addendum Begins [employer] [facility]IS REPORT STATUS:A ADDENDUM: Study reviewed by radiology. Agree with the nonvascular findings as described below. Multiple enlarged medi astinal nodes are present, including prevascular, paratracheal, castellanos bcarinal, and bilateral perihilar regions, neoplasm cannot be e xcluded. Consider PET/CT or bronchoscopy for biopsy. Signed: Reji Fish MD Report Verified Date/Time: 9 09:54:17 Reading Location: [facility] P048 Angio Bod y Reading Room Addendum [...] 5.9 mm, respectively with mildtortu osity and xdbi-pu-ywknvkwh calcific atherosclerosis present. The minimum and the perpendicular right common iliac artery measures 10.2 and 10.4 mm, respectively with mil t-nf-mhufbbtuqekhuuwkjs and axcf-dy-zrzgjmwxvftjykdh atheroscle rosis present. The minimum and the perpendicular rightexternal perry ac artery measures 8.1 and 83 mm, respectively with fluk-mz-yokinwzc tortuosity and mildcalcific atherosclerosis present. The minimum [...] rega rding the non-vascular findings by the Magazine Supervisor Radiologist. Signed: Tyler Chin MD Report Verified Date/Time: 9 11:43:12 Procedure Note Interface, External Ris In - 11/05/2019 9:56 AM PERSONAL CHEF Addendum Begins REPORT STATUS:A ADDENDUM: Study reviewed by radiology. Agree with the nonvascular findings as described below. Multiple enlarged mediastinal nodes are present, including prevascular, paratracheal, subcarinal, and bilateral perihilar regions, neoplasm cannot be excluded. Consider PET/CT or bronchoscopy for biopsy. Signed: Reji Fish MD Report Verified Date/Time: 11/05/2019 09:54:17 Reading Location: [facility] P048 Angio Body Reading Room Addendum Ends [...] mm, respectively with mild tortuosi ty and otpq-yf-bvginlpy calcific atherosclerosis present. The minimum and the perpendicular right common iliac artery measures 10.2 and 10.4 mm, respectively with mild -to-moderate tortuosity and kkrc-xe-avatqczl calcific atherosclerosis present. The minimum and the perpendicular right external iliac artery measures 8.1 and 83 mm, respectively with naaa-ea-qegxfton tortuosity and mild calcific atherosclerosis present. The [...] regardi ng the non-vascular findings by the Magazine Supervisor Radiologist. Signed: Tyler Chin MD Report Verified Date/Time: 11/04/2019 11:43:12 Performing Organization Address City/State[facility] Ph one Number RIS * Osmolality, serum (11/03/2019 4:09 PM PERSONAL CHEF) Osmolality Serum 300 (H) 275 - 295 mOsm/kg [facility] Specimen Blood Performing Organization Address City/State/[facility] Ph one Number [facility] [address], [place] [address] [facility] * Osmolality, urine (11/03/2019 4:08 PM PERSONAL CHEF) Osmolality, Ur 230 40-1,400 mOsm/kg [facility] Specimen Urine Performing Organization Address City/State/Zipcode Ph one Number [facility] [address] [place] [address] [facility] * Manual Differential (11/03/2019 4:05 AM PERSONAL CHEF) % Neutros (manual) 73 % [facility] % Lymphs (manual) 15 % [facility] % Monos (manual) 8 % [facility] % Eos (manual) 2 % [facility] % Baso (manual) 1 % [facility] % Myelo (manual) 1 (H) 0 - 0 % [facility] # Neutros (manual) 5.18 1.80 - 8.00 K/L [facility] # Lymphs (manual) 1.07 (L) 1.48 - 4.50 K/L [facility] # Monos (manual) 0.57 0.00 - 1.30 K/L [facility] # Eos (manual) 0.14 0.00 - 0.50 K/L [facility] # Baso (manual) 0.07 0.00 - 0.20 K/L [facility] # Myelo (manual) 0.07 (H) 0.00 - 0.00 K/L [facility] Total Counted 100 [facility] WBC Morphology Normal [facility] Platelet Morphology Normal [facility] Anisocytosis 1+ few [facility] Columbus Cells 3+ many [facility] Elliptocytes 1+ few [facility] Poikilocytes 3+ many [facility] Specimen Blood Performing Organization Address City/State/Zipcode Ph one Number [facility] [address], [place] [address] [facility] * US renal complete (11/03/2019 12:51 AM PERSONAL CHEF) Specimen Narrative Performed At FINAL REPORT [facility] Renal ultrasound dated 11/03/2019 CLINICAL HISTORY: [...] External Ris In - 11/03/2019 6:55 AM PERSONAL CHEF FINAL REPORT Renal ultrasound dated 11/03/2019 CLINICAL [...] Verified Date/Time: 11/03/2019 02:31:25 Performing Organization Address City/State/[facility] Ph one Number RIS * Urea Nitrogen, random urine (11/02/2019 3:24 PM PERSONAL CHEF) Urea Nitrogen, Ur 492 mg/dL [facility] Specimen Urine Narrative Performed At Reference Range: No Normals [facility] Performing Organization Address City/[facility] Ph one Number [address] [facility] * Sodium, random urine (11/02/2019 3:24 PM PERSONAL CHEF) Sodium Urine 29 meq/L [facility] Specimen Urine Narrative Performed At Reference Range: No Normals [facility] Performing Organization Address City/[facility] Ph one Number [address] [facility] * Creatinine, random urine (11/02/2019 3:24 PM PERSONAL CHEF) Creatinine, Ur 61.3 mg/dL [facility] Specimen Urine Narrative Performed At Reference Range: No Normals [facility] Performing Organization Address City/[facility] Ph one Number [address] 0 [phone] [place] [address] * Urinalysis w/Microscopic (11/02/2019 3:24 PM PERSONAL CHEF) Color, UA Yellow [facility] Clarity, UA Clear [facility] Specific [place], UA 1.009 1.001 - 1.035 [facility] pH, UA 5.0 5.0 - 8.0 [facility] Protein, UA 20 mg/dL (A) Negative [facility] Glucose, UA Negative Negative [facility] Ketones, UA Negative Negative [facility] Bilirubin, UA Negative Negative [facility] Blood, UA Small (A) Negative [facility] Nitrite, UA Negative Negative [facility] Leukocytes, UA Negative Negative [facility] Urobilinogen, UA 0.2 0.2 - 1.0 mg/dL [facility] RBC, UA 2 /HPF [facility] WBC, UA 1 /HPF [facility] Mucus Rare [facility] Squam Epithel, UA <1 /HPF [facility] Yeast Rare [facility] Specimen Source [facility] Specimen Urine Performing Organization Address City/State/Zipcode Ph one Number [place] [id number] 0 [phone] [place] [address] * PERIPHERAL VASCULAR REPORT - SCAN (11/01/2019 9:21 PM PERSONAL CHEF) Narrative Performed At This result has an attachment that is n ot available. * Pulmonary Funct Lab Spirometry (11/01/2019 1:31 PM PERSONAL CHEF) Narrative Performed At Nadine Ramirez, EVY, KNOT CUTTER 10/072:21 PM [facility] PFT CHARTING REPORT Infection Control/Hand Hygiene procedur es followed throughout the encounter with patient: Yes Patient Identification Method: Patient name verified on armband, and Medical record on armband, Is the order complete?: Yes Account ID#: [id number] Patient Name: Osmel Munoz Birthdate: 1930 Age: [...] * Carotid doppler bilateral (10/31/2019 7:40 PM PERSONAL CHEF) Ejection Fraction [facility] MKCKESSON CPACS Specimen Impressions Performed At Right Impression [facility] 1. There is <50% diameter [...] Performed At LAB - Carotid Duplex Study [facility] Patient NameSOSMEL MARTIN Date of Study 10/31/2019 89 Visit [id number] le Date of 1930 Referring Omaira Mcgee Room Number 1431 Physician Industrial Controls Technician Sherrie Jimenez [facility], [facility] Physician Procedure Type of Study: Cerebral: Carotid, CAROTID DOPPLER, HAKEEM ATERAL. 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 Patient Status:Routine. Study Location:Portable. Technical Quality:Adequate visualizatio n. Risk Factors History of Disease + +-- --------+ + !Diagnosis!Date! Comments ! + +-- --------+ + !History/Risk Factors: !10/31/2019!aortic stenosis! + +-- --------+ + Procedure Note Interface, External Ris In - 11/01/2019 12:41 PM PERSONAL CHEF PV LAB - Carotid Duplex Study Demographics Patient Name OSMEL MUNOZ Date of Study 10/31/2019 Age 89 Visit Number [id number] Gender Male Accession Number [id number] Date of 1930 Referring Omaira Mcgee Room Number 1431 Physician Industrial Controls Technician Sherrie Jimenez Interpreting Anat Mims T Physician [...] Additional Measurements:ICAPSV/CCAPSV 1.3.ICAEDV/CCAEDV 1.2. Performing Organization Address City/[facility] Ph one Number [facility] MKCKESSON CPACS * Hemoglobin and hematocrit (10/30/2019 2:35 PM PERSONAL CHEF) Hemoglobin 10.4 (L) 13.7 - 17.5 GM/DL [facility] Hematocrit 33.4 (L) 40.1 - 51.0 % [facility] Specimen Blood Performing Organization Address [facility] one Number [address] [facility] * Lactate dehydrogenase (LDH) (10/30/2019 2:35 PM PERSONAL CHEF) LDH 332 (H) 125 - 220 U/L [facility] Specimen Blood Performing Organization Address [facility] Ph one Number [address] [facility] * Haptoglobin (10/30/2019 2:35 PM PERSONAL CHEF) Haptoglobin 92 14 - 258 mg/dL [facility] Specimen Blood Performing Organization Address [facility] Ph one Number [address] [facility] * Vitamin B12 and Folate (10/30/2019 4:19 AM PERSONAL CHEF) Vitamin B12 1,558 (H) 213 - 816 pg/mL [facility] Folate 13.0 >=7.0 ng/mL [facility] Specimen Blood Performing Organization Address City[facility] one Number [address] [facility] * Iron, TIBC, % sat. (without ferritin) (10/30/2019 4:19 AM PERSONAL CHEF) Iron 37.0 (L) 40.0 - 160.0 ug/dL [facility] TIBC 254 250 - 450 ug/dL [facility] Iron % Saturation 15 (L) 20 - 55 % [facility] Specimen Blood Performing Organization Address City/[facility] Ph one [address] 0 [phone] [place] [address] * RPR (10/30/2019 4:19 AM PERSONAL CHEF) RPR Nonreactive Nonreactive [facility] Specimen Blood Performing Organization Address City/[facility] Ph one [address] 0 [phone] [place] [address] * TSH (10/30/2019 4:19 AM PERSONAL CHEF) TSH 2.70 0.35 - 4.94 uIU/mL [facility] Specimen Blood Performing Organization Address City/[facility] Ph one [address] 0 [phone] [place] [address] * Ferritin (10/30/2019 4:19 AM PERSONAL CHEF) Ferritin 179 5 - 275 ng/mL [facility] Specimen Blood Performing Organization Address [facility] Ph one [address] 0 [phone] [place] [address] * Hepatic function panel (10/30/2019 4:19 AM PERSONAL CHEF) Only the most recent of 3 results within the time period is included. Protein, Total 6.2 6.0 - 8.3 gm/dL [facility] Albumin 3.2 (L) 3.5 - 5.0 g/dL [facility] Total Bilirubin 0.5 0.2 - 1.2 mg/dL [facility] Bilirubin, Direct 0.4 0.1 - 0.5 mg/dL [facility] Alkaline Phosphatase 51 40 - 150 U/L [facility] AST 28 5 - 34 U/L [facility] ALT 17 6 - 55 U/L [facility] Specimen Blood Performing Organization Address City/State/[facility] Ph one Number [facility] [address] [place], [place] [facility] [facility] * CBC (Hemogram only) (10/29/2019 3:38 AM PERSONAL CHEF) Only the most recent of 2 results within the time period is included. WBC 7.0 3.5 - 10.5 K/L [facility] RBC 4.03 (L) 4.63 - 6.08 M/L [facility] Hemoglobin 10.6 (L) 13.7 - 17.5 GM/DL [facility] Hematocrit 33.3 (L) 40.1 - 51.0 % [facility] MCV 82.6 79.0 - 92.2 fL [facility] MCH 26.3 25.7 - 32.2 pg [facility] MCHC 31.8 (L) 32.3 - 36.5 GM/DL [facility] RDW 14.9 (H) 11.6 - 14.4 % [facility] Platelets 249 150 - 450 K/CU MM [facility] MPV 10.6 9.4 - 12.4 fL [facility] nRBC 2 (H) 0 - 0 /100 WBC [facility] Specimen Blood Performing Organization Address City/State/Zipcode Ph henrique Tucker [facility] [address] [place], [place] [address] [facility] * ECHOCARDIOGRAM REPORT - SCAN (10/28/2019 9:22 PM PERSONAL CHEF) Narrative Performed At This result has an attachment that is n ot available. * 2D Echo W/Doppler(CW/PW/Color) (10/28/2019 8:44 AM PERSONAL CHEF) Ejection Fraction [facility] MKPlayJamESSON [facility] Specimen Narrative Performed At Transthoracic Echocardiography Report (TTE) [facility] Demographics [facility] Patient NameSTEWART, Date of Study10/28/2019 OSMEL Gender Male Visit [id number] Race Unknown Room [id number] Number Date of 1930 Molly peterson PhysicianSARINA Phillips Age 89 year(s) SonographerMarisa Ely [facility] Business Project Analyst Joshua Chavez Interpreting Sameer Wallis MD Physician [...] itral annular calcification. Mild MV leaflet thickening. Gxgq-sj-wudseure mitral regurgitation. Tricuspid ValveMild-to- moderate tricuspid regurgitation. 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 Mild MV leaflet thickening. Wlzu-bs-qghhwuje mitral regurgitation. Tricuspid Valve Jphr-zw-lmppiwhp tricuspid regurgitation. Estimated peak systolic PA pressure [...] MKCKESSON CPACS * Procalcitonin (10/27/2019 8:20 PM PERSONAL CHEF) Procalcitonin 0.06 (H) <0.05 ng/mL [facility] Specimen Blood Narrative Performed At SEPSIS RISK (ng/mL) [facility] Low:0.05-0.50 [facility] Intermediate: 0.51-2.00 High: >=2.01 Performing Organization Address City/State/Zipcode Ph one Number [facility] [address] [place], [place] [address] [facility] * CT brain without IV contrast (10/27/2019 2:07 PM PERSONAL CHEF) Specimen Narrative Performed At FINAL REPORT GE [...] intracranial pathology, MR examination is recommended for formerly [facility] characterization. Signed: Maria Vila MD Report Verified Date/Time: 9 14:13:39 Procedure Note Interface, External Ris In - 10/27/2019 2:15 PM PERSONAL CHEF FINAL REPORT CT, BRAIN, WITHOUT CONTRAST INDICATION: [...] + Reflex to Culture (10/27/2019 8:44 AM PERSONAL CHEF) Color, UA Light Yellow [facility] Clarity, UA Clear [facility] Specific [place], UA 1.008 1.001 - 1.035 [facility] pH, UA 5.0 5.0 - 8.0 [facility] Protein, UA 20 mg/dL (A) Negative [facility] Glucose, UA Negative Negative [facility] Ketones, UA Negative Negative [facility] Bilirubin, UA Negative Negative [facility] Blood, UA Small (A) Negative [facility] Nitrite, UA Negative Negative [facility] Leukocytes, UA Negative Negative [facility] Urobilinogen, UA 0.2 0.2 - 1.0 mg/dL [facility] RBC, UA 3 /HPF [facility] WBC, UA <1 /HPF [facility] Specimen Source [facility] Specimen Urine Performing Organization Address City/[facility] Ph one Number [address] [facility] * Blood Culture - Routine (Right Venipuncture) (10/27/2019 6:58 AM PERSONAL CHEF) Only the most recent of 2 results within the time period is included. Result No growth in 5 days [facility] Specimen Blood Performing Organization Address [facility] Ph one Number [address] 0 [phone] [place] [address] * Ammonia (10/27/2019 6:57 AM PERSONAL CHEF) Ammonia 16 (L) 18 - 72 mol/L [facility] Specimen Blood Performing Organization Address [facility] Ph one Number [address] 0 [phone] [place] [address] * TSH/Free T4 If Indicated (10/27/2019 6:01 AM PERSONAL CHEF) TSH 1.45 0.35 - 4.94 uIU/mL [facility] Specimen Blood Performing Organization Address [facility] Ph one Number [place] [address] 0 [phone] [place] [address] * Phosphorus (10/27/2019 6:01 AM PERSONAL CHEF) Phosphorus 3.1 2.3 - 4.7 mg/dL [facility] Specimen Blood Performing Organization Address City/State/Zipcode Ph one Number [employer] That{img} [facility] [address] [place], [place] [address] [facility] after 03/16/2019 Insurance Payer Benefit Subscriber ID Type Phone Address Plan / Group [employer] CIGNA xxxxxxxxxxx Maps [employer] Contracted NG ALL [phone] Advance Directives For more information, please contact: [facility] [place] [phone] [place], [place] [phone] Date Inactivated Comments Code Status Date Activated 11/13/2019 4:48 PM Full Code 10/31/2019 11:22 AM This code status was determined by: Patient 10/31/2019 11:22 AM Full Code 10/27/2019 1:04 AM This code status was determined by: Patient
[2020-03-16 15:03] LABS: BASOPHILS % 0.3 % (0.0-1.0); EOSINOPHILS # (AUTO) 0.1 (0.0-0.4); EOSINOPHILS % 0.4 % (0.0-6.0); HEMATOCRIT 39.9 % (38.2-49.6); HEMOGLOBIN 12.6 g/dL (14.0-18.0); LYMPHOCYTES % 7.9 % (18.0-39.1); MEAN CORPUSCULAR HEMOGLOBIN 25.1 pg (28-32); MEAN CORPUSCULAR HGB CONC 31.6 g/dL (31-35); MEAN CORPUSCULAR VOLUME 79.6 fL (81-99); MONOCYTES # (AUTO) 1.1 (0.2-0.8); MONOCYTES % 8.6 % (4.4-11.3); NEUTROPHILS # (AUTO) 10.2 (2.1-6.9); NEUTROPHILS % 82.4 % (38.7-80.0); PLATELET COUNT 168 x10e3/uL (140-360); RED BLOOD COUNT 5.01 x10e6/uL (4.3-5.7); RED CELL DISTRIBUTION WIDTH 19.3 % (11.7-14.4)
[2020-03-16 15:17] LABS: INR 1.13; PROTHROMBIN TIME 15.2 seconds (11.9-14.5)
[2020-03-16 15:18] LABS: PARTIAL THROMBOPLASTIN TIME 30.3 seconds (23.8-35.5)
--- NOTE | 2020-03-16 15:20 | Diagnostic Imaging Report ---
EXAM: CHEST SINGLE (PORTABLE) DATE: 03/16/2020 2:55 PM INDICATION: Senior, hypertension COMPARISON: 10/22/2019 FINDINGS: The trachea is midline. There are mildly increased left basilar opacity suggestive of atelectasis. The lungs are otherwise symmetrically expanded without evidence for large focal consolidation, pneumothorax, or significant pleural effusion. The cardiomediastinal silhouette is stable in appearance. Atherosclerotic ossifications noted within the aortic arch. The pulmonary vasculature is not engorged. No acute osseous abnormality is identified. The surrounding soft tissues are unremarkable. IMPRESSION: No acute cardiopulmonary process identified. Signed by: Dr. Westley Lin MD on 03/16/2020 3:16 PM
[2020-03-16 15:26] LABS: ALBUMIN 3.2 g/dL (3.5-5.0); ALBUMIN/GLOBULIN RATIO 0.8 (0.8-2.0); ANION GAP 16.4 mmol/L (8-16); CREATININE, SERUM 1.95 mg/dL (0.72-1.25); POTASSIUM 4.4 mmol/L (3.5-5.1)
[2020-03-16 16:25] LABS: BILIRUBIN,URINE SMALL (NEGATIVE); CLARITY,URINE SL CLOUDY (CLEAR); COLOR,URINE STRAW (YELLOW); KETONES,URINE TRACE (NEGATIVE); LEUKOCYTE ESTERASE ,URINE NEGATIVE (NEGATIVE); NITRITE,URINE NEGATIVE (NEGATIVE); PROTEIN,URINE DIPSTICK 2+ (NEGATIVE); URINE UROBILINOGEN 0.2 mg/dL (0.2 - 1)
--- NOTE | 2020-03-16 16:45 | Emergency Department Note ---
History of Present Illnes History of Present Illness Chief Complaint: General Medicine Complaints Stated Complaint: SUGAR UP, HIGH BP,WEAK History of Present Illness This is a 89 year old male . Complaint: Chest pain Historian: Patient Filler Sifter Helper Required: No Onset (how long ago): day(s) Radiation: non-radiation Severity: mild Onset quality: gradual Duration (how long): day(s) Timing of current episode: constant Progression: worsening Context: new medications Relieving factors: none Exacerbating factors: none Associated symptoms: denies other symptoms Treatments prior to arrival: none (HIRAM BAR NP) Past Medical/Family History Physician Review I have reviewed the patient's past medical and family history. Any updates have been documented here. (HIRAM BAR NP) Past Medical History Recent Fever: No Clinical Suspicion of Infectio: No New/Unexplained Change in Ment: No Past Medical History: Hypertension, Diabetes, A-Fib, Kidney Stones Past Surgical History: Cataract Removal Other Surgery: DENTURES (HIRAM BAR NP) Social History Smoking Cessation: Never Smoker Alcohol Use: None Any Illegal Drug Use: No TB Exposure/Symptoms: No Physically hurt or threatened: No (HIRAM BAR NP) Family History Family history of heart diseas: Yes (HIRAM BAR NP) Other Last Tetanus: UNKNOWN Any Pre-Existing Lines (PICC,: No Is patient up to date on immun: Yes (HIRAM BAR NP) Review of Systems Review of Systems Constitutional: chills, weakness EENTM: no symptoms Cardiovascular: chest pain Gastointestinal/Abdominal: no symptoms Genitourinary: no symptoms Musculoskeletal: gout, joint pain, joint swelling Integumentary: no symptoms Neurological: no symptoms Psychological: no symptoms Endocrine: no symptoms Hematological/Lymphatic: no symptoms Review of other systems All other systems reviewed and negative. (HIRAM BAR NP) Physical Exam Related Data Allergies: Coded Allergies: No Known Allergies (Unverified , 10/22/19) Triage Vital Signs Vital Signs Date Time Temp Pulse Resp B/P (MAP) Pulse Ox O2 Delivery O2 Flow Rate FiO2 03/16/20 14:22 96.8 115 18 171/93 98 (HIRAM BAR NP) Exam Narrative Exam Narrative Patient is a 89 year old male that presents with "not feeling well" patient also states the left sided chest pain that started yesterday Discussed all results with Dr Khan- spoke to Dr Freddy Walker and will admit over night. Updated patient and all questions answered. (HIRAM BAR NP) Physical Exam CONSTITUTIONAL Constitutional: well-developed, well-nourished HENT HENT: normocephalic EYES Eyes: PERRL, conjunctivae normal NECK Neck: ROM normal, supple PULMONARY Pulmonary: effort normal, breath sounds normal CARDIOVASCULAR Cardiovascular: regular rhythm, capillary refill normal, normal rate GASTROINTESTINAL Abdominal: soft, nontender GENITOURINARY SKIN Skin: warm, dry MUSCULOSKELETAL Musculoskeletal: ROM normal NEUROLOGICAL Neurological: alert, oriented x 3, DTRs normal, no gross motor or sensory deficits PSYCHOLOGICAL Psychiatric/behavioral: mood/affect normal (HIRAM BAR NP) Critical Care Time Subsequent provider I assumed direction of critical care for this patient from another provider of my specialty. (HIRAM BAR NP) Assessment & Plan Assessment & Plan Problems: (1) Chest pain (2) Weakness (3) Congestive heart failure (CHF) Assessment & Plan Patient updated on all results and discussed admission. All questions answered. (HIRAM BAR NP) Depart Disposition: ADMITTED Last Vital Signs Date Time Temp Pulse Resp B/P (MAP) Pulse Ox O2 Delivery O2 Flow Rate FiO2 03/16/20 14:22 96.8 115 18 171/93 98 (HIRAM BAR NP) Home Meds Active Scripts Albuterol Sulfate (ALBUTEROL SULFATE) 2.5 Mg/3 Ml Vial.neb, 2.5 MG INH Q4HR PRN for SHORTNESS OF BREATH, #60 VIAL 2 Refills Prov:YEIMI GRANDE MD, ABI 10/25/19 Nebulizer and Compressor (Easy Air Compressor Nebulizer) 1 Each Each, UNIT IH Q4HR PRN for SHORTNESS OF BREATH, #1 0 Refills Prov:YEIMI GRANDE MD, ABIM 10/25/19 Reported Medications Insulin Glargine,Hum.rec.anlog (Kt Solostmichelle) 300 Unit/1 Ml Insuln.pen, 30 UNITS SUBD DAILY 03/16/20 Hydralazine Hcl (HYDRALAZINE HCL) 10 Mg Tablet, 10 MG PO Q8H, #30 TAB 03/16/20 Furosemide (FUROSEMIDE) 40 Mg Tablet, 20 MG PO Daily, #30 TAB 03/16/20 Clopidogrel Bisulfate* (PLAVIX) 75 Mg Tablet, 75 MG PO DAILY, #30 TAB 03/16/20 Carvedilol (COREG) 12.5 Mg Tab, 12.5 MG PO BID 03/16/20 Cholecalciferol (Vitamin D3) (VITAMIN D3) 4,000 Unit Capsule 10/23/19 Cyanocobalamin (Vitamin B-12) (Vitamin B12) 2,500 Mcg Tablet, 1000 MCG PO DAILY 10/23/19 Metformin Hcl (METFORMIN HCL) 500 Mg Tablet, 1000 MG PO BID, #60 TAB 10/23/19 Atorvastatin Calcium (ATORVASTATIN CALCIUM) 20 Mg Tablet, 40 MG PO HS, #30 TAB 10/23/19 Apixaban (Eliquis) 2.5 Mg Tablet, 2.5 MG OD DAILY 10/23/19 Discontinued Reported Medications Insulin Glargine (LANTUS 3ML PEN) 100 Units/1 Ml Inj, 300 10/23/19 Lisinopril (LISINOPRIL) 10 Mg Tablet, 10 MG PO DAILY, #30 TAB 10/23/19 Amlodipine Besylate (AMLODIPINE BESYLATE) 5 Mg Tablet, 2.5 MG PO BID, #30 TAB 10/23/19 Attestation Medications in the ED The patient's history, exam findings, diagnostics, and a summary of any interventions or procedures was reviewed in detail with our CHRISTI. I personally interviewed and examined the patient, and I have reviewed and agree with the HPI andexam. My personal exam shows age appropriate male in no distress. I co nfirm the diagnosis as documented by the CHRISTI. I have reviewed and agree with the care plan articulated in the disposition section. (RICHIE KHAN DO) HIRAM BAR NP March 16, 2020 14:48 RICHIE KHAN DO March 16, 2020 23:02
[2020-03-16 16:54] LABS: AMORPHOUS SEDIMENT,URINE MODERATE (FEW); BACTERIA,URINE MODERATE /HPF; EPITHELIAL CELLS,URINE FEW /LPF
[2020-03-16] MEDS ORDERED: SODIUM CHLORIDE FLUSH 10 ML SYR INJ PRN (17:00)
[2020-03-16] MEDS ORDERED: ONDANSETRON HCL INJ 2MG/ML 2ML 2 MG/ML VIAL IV PRN (17:00)
[2020-03-16] MEDS ORDERED: DEXTROSE 50% SYRINGE 50 ML IV PRN (17:00)
[2020-03-16] MEDS ORDERED: ASPIRIN 81 MG CHEW TAB PO ONE (17:00)
[2020-03-16] MEDS ORDERED: HYDRALAZINE HCL 20 MG/ML VIAL IV ONE (17:00)
--- OUTSIDE RECORDS SUMMARY | 2020-03-16 17:04 | XMS REPORT | Clinical Summary ---
Author Author [facility] [employer] Organization [employer] Address Unknown Phone Unavailable Care Team Providers Care Computer Installer Name Role Phone Neymar Ford MD PCP [...] Advance Directives For more information, please contact: [phone] Patient Hygiene Coordinator Explanation Type Date Recorded Advance Directives, 01/28/2016 1:02 PM Living Will and Medical Power of Crankshaft Balancer Advance Directives, 11/27/2016 1:16 PM Living Will and Medical Power of Crankshaft Balancer Advance Directives, 05/13/2018 9:31 AM Living Will and Medical Power of Crankshaft Balancer Date Inactivated Comments Code Status Date Activated 03/19/2018 9:24 PM Full Code 03/16/2018 11:28 PM Code Status decision reached by: Patient
--- OUTSIDE RECORDS SUMMARY | 2020-03-16 17:05 | XMS REPORT | Clinical Summary ---
Author Author [facility] Address Unknown Phone Unavailable Care Team Providers Care Medical Library Assistant Name Role Phone PCP Unavailable Allergies No [...] stage 3 chronic kidney disease, unspecified whether correction insulin use (HCC); Acute on chronic diastolic [...] Taken Vital Sign Reading 11/13/2019 11:35 AM ELECTROLYTIC ETCHER Blood Pressure 174/82 11/13/2019 2:05 PM ELECTROLYTIC ETCHER Pulse 78 11/13/2019 11:35 AM ELECTROLYTIC ETCHER Temperature 36.8 C (98.3 F) 11/13/2019 2:05 PM ELECTROLYTIC ETCHER Respiratory Rate 18 11/13/2019 2:05 PM ELECTROLYTIC ETCHER Oxygen Saturation 98% 11/13/2019 8:20 AM ELECTROLYTIC ETCHER Inhaled Oxygen 21% Concentration 11/13/2019 8:12 AM ELECTROLYTIC ETCHER Weight 72.4 kg (159 lb 9.6 oz) 10/26/2019 11:40 PM ELECTROLYTIC ETCHER Height 172.7 cm (5' 8") 11/13/2019 8:12 AM ELECTROLYTIC ETCHER Body Mass Index 24.27 Plan of Treatment Not on file Implants Device Identifier Shelf Expiration Date Model / Serial / L ot Implanted Type Area Manufactur er 09/12/2020 EVPROPLUS-26US / / [id number] Valve Evolut Pro+ Trnscthtr 34 IMPLANTS [employer]: Evproplus-26us - [id number] STRUCTURAL Implanted: Qty: 1 on 11/08/2019 by HEART Adam Wynne MD Procedures Comments Procedure Name Priority Date/Time Associated Diag nosis RHYTHM STRIP - SCAN 12/03/2019 4:01 PM ELECTROLYTIC ETCHER RHYTHM STRIP - SCAN 11/27/2019 12:31 PM ELECTROLYTIC ETCHER VASCULAR DIAGRAM -SCAN 11/21/2019 2:00 PM ELECTROLYTIC ETCHER RHYTHM STRIP - SCAN 11/14/2019 1:33 PM ELECTROLYTIC ETCHER REPORT OF PROCEDURE - 11/14/2019 ENDOSCOPY SCAN 11:13 AM ELECTROLYTIC ETCHER CARDIAC CATH REPORT - 11/14/2019 SCAN 11:13 AM ELECTROLYTIC ETCHER CARDIAC CATH REPORT - 11/14/2019 SCAN 11:13 AM ELECTROLYTIC ETCHER PERMANENT LAB REPORT - 11/14/2019 SCAN 11:13 AM ELECTROLYTIC ETCHER RHYTHM STRIP - SCAN 11/14/2019 11:13 AM ELECTROLYTIC ETCHER RHYTHM STRIP - SCAN 11/14/2019 11:13 AM ELECTROLYTIC ETCHER POCT-GLUCOSE METER Routine 11/13/2019 11:42 AM ELECTROLYTIC ETCHER POCT-GLUCOSE METER Routine 11/13/2019 7:33 AM ELECTROLYTIC ETCHER CBC W/PLT COUNT & AUTO Routine 11/13/2019 DIFFERENTIAL 4:43 AM ELECTROLYTIC ETCHER HEPARIN ASSAY - Routine 11/13/2019 UNFRACTIONATED 4:43 AM ELECTROLYTIC ETCHER PROTHROMBIN TIME/INR Routine 11/13/2019 4:43 AM ELECTROLYTIC ETCHER FIBRINOGEN Routine 11/13/2019 4:43 AM ELECTROLYTIC ETCHER CBC W/PLT COUNT & AUTO Routine 11/13/2019 DIFFERENTIAL 4:43 AM ELECTROLYTIC ETCHER MAGNESIUM Routine 11/13/2019 4:43 AM ELECTROLYTIC ETCHER BASIC METABOLIC PANEL (7) Routine 11/13/2019 4:43 AM ELECTROLYTIC ETCHER POCT-GLUCOSE METER Routine 11/12/2019 9:57 PM ELECTROLYTIC ETCHER POCT-GLUCOSE METER Routine 11/12/2019 5:43 PM ELECTROLYTIC ETCHER RHYTHM STRIP - SCAN 11/12/2019 3:50 PM ELECTROLYTIC ETCHER POCT-GLUCOSE METER Routine 11/12/2019 12:23 PM ELECTROLYTIC ETCHER POCT-GLUCOSE METER Routine 11/12/2019 7:53 AM ELECTROLYTIC ETCHER (CELLAVISION MANUAL DIFF) Routine 11/12/2019 5:01 AM ELECTROLYTIC ETCHER CBC W/PLT COUNT & AUTO Routine 11/12/2019 DIFFERENTIAL 5:01 AM ELECTROLYTIC ETCHER HEPARIN ASSAY - Routine 11/12/2019 UNFRACTIONATED 5:01 AM ELECTROLYTIC ETCHER PROTHROMBIN TIME/INR Routine 11/12/2019 5:01 AM ELECTROLYTIC ETCHER FIBRINOGEN Routine 11/12/2019 5:01 AM ELECTROLYTIC ETCHER CBC W/PLT COUNT & AUTO Routine 11/12/2019 DIFFERENTIAL 5:01 AM ELECTROLYTIC ETCHER MAGNESIUM Routine 11/12/2019 5:01 AM ELECTROLYTIC ETCHER BASIC METABOLIC PANEL (7) Routine 11/12/2019 5:01 AM ELECTROLYTIC ETCHER ECHOCARDIOGRAM REPORT - 11/11/2019 SCAN 9:21 PM ELECTROLYTIC ETCHER POCT-GLUCOSE METER Routine 11/11/2019 8:49 PM ELECTROLYTIC ETCHER POCT-GLUCOSE METER Routine 11/11/2019 5:03 PM ELECTROLYTIC ETCHER POCT-GLUCOSE METER Routine 11/11/2019 11:49 AM ELECTROLYTIC ETCHER POCT-GLUCOSE METER Routine 11/11/2019 8:17 AM ELECTROLYTIC ETCHER CBC W/PLT COUNT & AUTO Routine 11/11/2019 DIFFERENTIAL 5:07 AM ELECTROLYTIC ETCHER HEPARIN ASSAY - Routine 11/11/2019 UNFRACTIONATED 5:07 AM ELECTROLYTIC ETCHER PROTHROMBIN TIME/INR Routine 11/11/2019 5:07 AM ELECTROLYTIC ETCHER FIBRINOGEN Routine 11/11/2019 5:07 AM ELECTROLYTIC ETCHER CBC W/PLT COUNT & AUTO Routine 11/11/2019 DIFFERENTIAL 5:07 AM ELECTROLYTIC ETCHER MAGNESIUM Routine 11/11/2019 5:07 AM ELECTROLYTIC ETCHER BASIC METABOLIC PANEL (7) Routine 11/11/2019 5:07 AM ELECTROLYTIC ETCHER POCT-GLUCOSE METER Routine 11/10/2019 9:07 PM ELECTROLYTIC ETCHER POCT-GLUCOSE METER Routine 11/10/2019 8:21 PM ELECTROLYTIC ETCHER POCT-GLUCOSE METER Routine 11/10/2019 4:46 PM ELECTROLYTIC ETCHER POCT-GLUCOSE METER Routine 11/10/2019 11:10 AM ELECTROLYTIC ETCHER POCT-GLUCOSE METER Routine 11/10/2019 7:27 AM ELECTROLYTIC ETCHER CBC W/PLT COUNT & AUTO Routine 11/10/2019 DIFFERENTIAL 4:13 AM ELECTROLYTIC ETCHER HEPARIN ASSAY - Routine 11/10/2019 UNFRACTIONATED 4:13 AM ELECTROLYTIC ETCHER PROTHROMBIN TIME/INR Routine 11/10/2019 4:13 AM ELECTROLYTIC ETCHER FIBRINOGEN Routine 11/10/2019 4:13 AM ELECTROLYTIC ETCHER CBC W/PLT COUNT & AUTO Routine 11/10/2019 DIFFERENTIAL 4:13 AM ELECTROLYTIC ETCHER XR CHEST 1 VIEW Routine 11/10/2019 PORTABLE/BEDSIDE 2:43 AM ELECTROLYTIC ETCHER LACTIC ACID, VENOUS Routine 11/10/2019 1:34 AM ELECTROLYTIC ETCHER TROPONIN I Routine 11/10/2019 1:22 AM ELECTROLYTIC ETCHER MAGNESIUM Routine 11/10/2019 1:22 AM ELECTROLYTIC ETCHER BASIC METABOLIC PANEL (7) Routine 11/10/2019 1:22 AM ELECTROLYTIC ETCHER ECG 12-LEAD Routine 11/10/2019 12:43 AM ELECTROLYTIC ETCHER POCT-GLUCOSE METER Routine 11/09/2019 10:05 PM ELECTROLYTIC ETCHER ECHOCARDIOGRAM REPORT - 11/09/2019 SCAN 9:21 PM ELECTROLYTIC ETCHER TRANSFUSION SERVICE 11/09/2019 REPORT - SCAN 6:02 PM ELECTROLYTIC ETCHER POCT-GLUCOSE METER Routine 11/09/2019 5:00 PM ELECTROLYTIC ETCHER 2D ECHO W/ DOPPLER STAT 11/09/2019 (CW/PW/COLOR) 1:57 PM ELECTROLYTIC ETCHER POCT-GLUCOSE METER Routine 11/09/2019 8:38 AM ELECTROLYTIC ETCHER MAGNESIUM Routine 11/09/2019 6:12 AM ELECTROLYTIC ETCHER BASIC METABOLIC PANEL (7) Routine 11/09/2019 6:12 AM ELECTROLYTIC ETCHER XR CHEST 1 VIEW Routine 11/09/2019 PORTABLE/BEDSIDE 5:51 AM ELECTROLYTIC ETCHER CBC W/PLT COUNT & AUTO Routine 11/09/2019 DIFFERENTIAL 4:17 AM ELECTROLYTIC ETCHER APTT Routine 11/09/2019 4:17 AM ELECTROLYTIC ETCHER HEPARIN ASSAY - Routine 11/09/2019 UNFRACTIONATED 4:17 AM ELECTROLYTIC ETCHER PROTHROMBIN TIME/INR Routine 11/09/2019 4:17 AM ELECTROLYTIC ETCHER FIBRINOGEN Routine 11/09/2019 4:17 AM ELECTROLYTIC ETCHER CBC W/PLT COUNT & AUTO Routine 11/09/2019 DIFFERENTIAL 4:17 AM ELECTROLYTIC ETCHER POCT-GLUCOSE METER Routine 11/08/2019 9:01 PM ELECTROLYTIC ETCHER THROMBOELASTOGRAPH (TEG) Routine 11/08/2019 8:59 PM ELECTROLYTIC ETCHER HEMOGLOBIN A1C Routine 11/08/2019 8:59 PM ELECTROLYTIC ETCHER POCT-GLUCOSE METER Routine 11/08/2019 5:53 PM ELECTROLYTIC ETCHER THROMBOELASTOGRAPH (TEG) Routine 11/08/2019 3:26 PM ELECTROLYTIC ETCHER ANTITHROMBIN III AP Routine 11/08/2019 3:26 PM ELECTROLYTIC ETCHER D-DIMER Routine 11/08/2019 3:26 PM ELECTROLYTIC ETCHER APTT Routine 11/08/2019 3:26 PM ELECTROLYTIC ETCHER APTT Routine 11/08/2019 3:26 PM ELECTROLYTIC ETCHER XR CHEST 1 VIEW STAT 11/08/2019 PORTABLE/BEDSIDE 2:55 PM ELECTROLYTIC ETCHER POCT-GLUCOSE METER Routine 11/08/2019 2:47 PM ELECTROLYTIC ETCHER PREPARE LEUKO-REDUCED RBC Routine 11/08/2019 2:15 PM ELECTROLYTIC ETCHER POCT-ACT Routine 11/08/2019 12:44 PM ELECTROLYTIC ETCHER POCT-ACT Routine 11/08/2019 12:33 PM ELECTROLYTIC ETCHER TAVR / HERLINDA MCR - IP 11/08/2019 Nonrheumatic a ortic valve PROC ONLY 12:19 PM ELECTROLYTIC ETCHER stenosis Case Notes (2)CASE 1431/ ANESTHESIA / SILVIANO TRANSESOPHAGEAL ECHO Routine 11/08/2019 10:49 AM ELECTROLYTIC ETCHER CONT WAVE PULSED DOPPLER Routine 11/08/2019 10:04 AM ELECTROLYTIC ETCHER COLOR-FLOW MAPPING Routine 11/08/2019 10:04 AM ELECTROLYTIC ETCHER ECG 12-LEAD Routine 11/08/2019 5:46 AM ELECTROLYTIC ETCHER Procedure Note - Interface, External Ris In - 11/08/2019 5:46 AM ELECTROLYTIC ETCHER Ventricula r Rate 88 BPM Atrial Rate 72 BPM QRS Duration 100 ms Q-T Interval 398 ms QTC Calculatio n(Bazett) 481 ms R Cowen -56 degrees T Cowen 108 degrees Atrial fibrillati on Left axis deviation Septal infarct , age undetermin ed Abnormal ECG No previous ECGs available ECG 12-LEAD STAT 11/08/2019 5:46 AM ELECTROLYTIC ETCHER ABORH, MANUAL STAT 11/08/2019 3:21 AM ELECTROLYTIC ETCHER CBC W/PLT COUNT & AUTO Routine 11/08/2019 DIFFERENTIAL 2:26 AM ELECTROLYTIC ETCHER ABORH, MANUAL STAT 11/08/2019 2:26 AM ELECTROLYTIC ETCHER TYPE AND SCREEN, STAT 11/08/2019 AUTOMATED 2:26 AM ELECTROLYTIC ETCHER PROTHROMBIN TIME/INR STAT 11/08/2019 2:26 AM ELECTROLYTIC ETCHER B-TYPE NATRIURETIC FACTOR Routine 11/08/2019 (BNP) 2:26 AM ELECTROLYTIC ETCHER CBC W/PLT COUNT & AUTO Routine 11/08/2019 DIFFERENTIAL 2:26 AM ELECTROLYTIC ETCHER MAGNESIUM Routine 11/08/2019 2:26 AM ELECTROLYTIC ETCHER BASIC METABOLIC PANEL (7) Routine 11/08/2019 2:26 AM ELECTROLYTIC ETCHER POCT-GLUCOSE METER Routine 11/07/2019 9:50 PM ELECTROLYTIC ETCHER POCT-GLUCOSE METER Routine 11/07/2019 9:15 PM ELECTROLYTIC ETCHER POCT-GLUCOSE METER Routine 11/07/2019 4:58 PM ELECTROLYTIC ETCHER POCT-GLUCOSE METER Routine 11/07/2019 11:47 AM ELECTROLYTIC ETCHER POCT-GLUCOSE METER Routine 11/07/2019 7:27 AM ELECTROLYTIC ETCHER CBC W/PLT COUNT & AUTO Routine 11/07/2019 DIFFERENTIAL 4:56 AM ELECTROLYTIC ETCHER CBC W/PLT COUNT & AUTO Routine 11/07/2019 DIFFERENTIAL 4:56 AM ELECTROLYTIC ETCHER MAGNESIUM Routine 11/07/2019 4:56 AM ELECTROLYTIC ETCHER BASIC METABOLIC PANEL (7) Routine 11/07/2019 4:56 AM ELECTROLYTIC ETCHER POCT-GLUCOSE METER Routine 11/06/2019 9:24 PM ELECTROLYTIC ETCHER POCT-GLUCOSE METER Routine 11/06/2019 4:50 PM ELECTROLYTIC ETCHER POCT-GLUCOSE METER Routine 11/06/2019 12:01 PM ELECTROLYTIC ETCHER POCT-GLUCOSE METER Routine 11/06/2019 8:02 AM ELECTROLYTIC ETCHER (CELLAVISION MANUAL DIFF) Routine 11/06/2019 4:40 AM ELECTROLYTIC ETCHER CBC W/PLT COUNT & AUTO Routine 11/06/2019 DIFFERENTIAL 4:40 AM ELECTROLYTIC ETCHER CBC W/PLT COUNT & AUTO Routine 11/06/2019 DIFFERENTIAL 4:40 AM ELECTROLYTIC ETCHER APTT Routine 11/06/2019 4:39 AM ELECTROLYTIC ETCHER MAGNESIUM Routine 11/06/2019 4:39 AM ELECTROLYTIC ETCHER BASIC METABOLIC PANEL (7) Routine 11/06/2019 4:39 AM ELECTROLYTIC ETCHER APTT Routine 11/05/2019 10:40 PM ELECTROLYTIC ETCHER POCT-GLUCOSE METER Routine 11/05/2019 10:18 PM ELECTROLYTIC ETCHER POCT-GLUCOSE METER Routine 11/05/2019 4:55 PM ELECTROLYTIC ETCHER POCT-GLUCOSE METER Routine 11/05/2019 1:14 PM ELECTROLYTIC ETCHER POCT-GLUCOSE METER Routine 11/05/2019 7:09 AM ELECTROLYTIC ETCHER PULMONARY FUNCTION - SCAN 11/05/2019 6:40 AM ELECTROLYTIC ETCHER CBC W/PLT COUNT & AUTO Routine 11/05/2019 DIFFERENTIAL 5:42 AM ELECTROLYTIC ETCHER CBC W/PLT COUNT & AUTO Routine 11/05/2019 DIFFERENTIAL 5:42 AM ELECTROLYTIC ETCHER MAGNESIUM Routine 11/05/2019 5:42 AM ELECTROLYTIC ETCHER BASIC METABOLIC PANEL (7) Routine 11/05/2019 5:42 AM ELECTROLYTIC ETCHER POCT-GLUCOSE METER Routine 11/04/2019 9:29 PM ELECTROLYTIC ETCHER APTT Routine 11/04/2019 8:46 PM ELECTROLYTIC ETCHER POCT-GLUCOSE METER Routine 11/04/2019 5:59 PM ELECTROLYTIC ETCHER APTT Routine 11/04/2019 2:32 PM ELECTROLYTIC ETCHER POCT-GLUCOSE METER Routine 11/04/2019 11:50 AM ELECTROLYTIC ETCHER CTA CHEST Routine 11/04/2019 10:49 AM ELECTROLYTIC ETCHER CTA ABDOMEN & PELVIS Routine 11/04/2019 10:49 AM ELECTROLYTIC ETCHER POCT-GLUCOSE METER Routine 11/04/2019 7:12 AM ELECTROLYTIC ETCHER (CELLAVISION MANUAL DIFF) Routine 11/04/2019 5:03 AM ELECTROLYTIC ETCHER CBC W/PLT COUNT & AUTO Routine 11/04/2019 DIFFERENTIAL 5:03 AM ELECTROLYTIC ETCHER APTT Routine 11/04/2019 5:03 AM ELECTROLYTIC ETCHER CBC W/PLT COUNT & AUTO Routine 11/04/2019 DIFFERENTIAL 5:03 AM ELECTROLYTIC ETCHER MAGNESIUM Routine 11/04/2019 5:03 AM ELECTROLYTIC ETCHER BASIC METABOLIC PANEL (7) Routine 11/04/2019 5:03 AM ELECTROLYTIC ETCHER POCT-GLUCOSE METER Routine 11/03/2019 9:33 PM ELECTROLYTIC ETCHER APTT Routine 11/03/2019 7:40 PM ELECTROLYTIC ETCHER POCT-GLUCOSE METER Routine 11/03/2019 5:05 PM ELECTROLYTIC ETCHER OSMOLALITY, SERUM Routine 11/03/2019 4:09 PM ELECTROLYTIC ETCHER OSMOLALITY, URINE Routine 11/03/2019 4:08 PM ELECTROLYTIC ETCHER APTT Routine 11/03/2019 11:50 AM ELECTROLYTIC ETCHER POCT-GLUCOSE METER Routine 11/03/2019 11:47 AM ELECTROLYTIC ETCHER (MANUAL DIFFERENTIAL) Routine 11/03/2019 4:05 AM ELECTROLYTIC ETCHER CBC W/PLT COUNT & AUTO Routine 11/03/2019 DIFFERENTIAL 4:05 AM ELECTROLYTIC ETCHER APTT Routine 11/03/2019 4:05 AM ELECTROLYTIC ETCHER PROTHROMBIN TIME/INR Routine 11/03/2019 4:05 AM ELECTROLYTIC ETCHER CBC W/PLT COUNT & AUTO Routine 11/03/2019 DIFFERENTIAL 4:05 AM ELECTROLYTIC ETCHER MAGNESIUM Routine 11/03/2019 4:05 AM ELECTROLYTIC ETCHER BASIC METABOLIC PANEL (7) Routine 11/03/2019 4:05 AM ELECTROLYTIC ETCHER US RENAL COMPLETE Routine 11/03/2019 12:51 AM ELECTROLYTIC ETCHER APTT Routine 11/02/2019 10:24 PM ELECTROLYTIC ETCHER POCT-GLUCOSE METER Routine 11/02/2019 9:11 PM ELECTROLYTIC ETCHER POCT-GLUCOSE METER Routine 11/02/2019 5:37 PM ELECTROLYTIC ETCHER APTT Routine 11/02/2019 4:06 PM ELECTROLYTIC ETCHER UREA NITROGEN, RANDOM Routine 11/02/2019 URINE 3:24 PM ELECTROLYTIC ETCHER CREATININE, RANDOM URINE Routine 11/02/2019 3:24 PM ELECTROLYTIC ETCHER SODIUM, RANDOM URINE Routine 11/02/2019 3:24 PM ELECTROLYTIC ETCHER URINALYSIS W/ MICROSCOPIC Routine 11/02/2019 3:24 PM ELECTROLYTIC ETCHER APTT Routine 11/02/2019 2:16 PM ELECTROLYTIC ETCHER POCT-GLUCOSE METER Routine 11/02/2019 12:25 PM ELECTROLYTIC ETCHER POCT-GLUCOSE METER Routine 11/02/2019 7:23 AM ELECTROLYTIC ETCHER (CELLAVISION MANUAL DIFF) Routine 11/02/2019 4:22 AM ELECTROLYTIC ETCHER CBC W/PLT COUNT & AUTO Routine 11/02/2019 DIFFERENTIAL 4:22 AM ELECTROLYTIC ETCHER PROTHROMBIN TIME/INR Routine 11/02/2019 4:22 AM ELECTROLYTIC ETCHER CBC W/PLT COUNT & AUTO Routine 11/02/2019 DIFFERENTIAL 4:22 AM ELECTROLYTIC ETCHER MAGNESIUM Routine 11/02/2019 4:22 AM ELECTROLYTIC ETCHER BASIC METABOLIC PANEL (7) Routine 11/02/2019 4:22 AM ELECTROLYTIC ETCHER PERIPHERAL VASCULAR 11/01/2019 REPORT - SCAN 9:21 PM ELECTROLYTIC ETCHER POCT-GLUCOSE METER Routine 11/01/2019 9:15 PM ELECTROLYTIC ETCHER POCT-GLUCOSE METER Routine 11/01/2019 6:08 PM ELECTROLYTIC ETCHER SPIROMETRY Routine 11/01/2019 1:31 PM ELECTROLYTIC ETCHER PROTHROMBIN TIME/INR Add-On 11/01/2019 8:53 AM ELECTROLYTIC ETCHER APTT Routine 11/01/2019 8:53 AM ELECTROLYTIC ETCHER POCT-GLUCOSE METER Routine 11/01/2019 7:35 AM ELECTROLYTIC ETCHER (CELLAVISION MANUAL DIFF) Routine 11/01/2019 4:54 AM ELECTROLYTIC ETCHER CBC W/PLT COUNT & AUTO Routine 11/01/2019 DIFFERENTIAL 4:54 AM ELECTROLYTIC ETCHER APTT Add-On 11/01/2019 4:54 AM ELECTROLYTIC ETCHER PROTHROMBIN TIME/INR Routine 11/01/2019 4:54 AM ELECTROLYTIC ETCHER CBC W/PLT COUNT & AUTO Routine 11/01/2019 DIFFERENTIAL 4:54 AM ELECTROLYTIC ETCHER MAGNESIUM Routine 11/01/2019 4:54 AM ELECTROLYTIC ETCHER BASIC METABOLIC PANEL (7) Routine 11/01/2019 4:54 AM ELECTROLYTIC ETCHER CAROTID DOPPLER BILATERAL Routine 10/31/2019 7:40 PM ELECTROLYTIC ETCHER POCT-GLUCOSE METER Routine 10/31/2019 6:01 PM ELECTROLYTIC ETCHER POCT-GLUCOSE METER Routine 10/31/2019 12:18 PM ELECTROLYTIC ETCHER POCT-ACT Routine 10/31/2019 11:10 AM ELECTROLYTIC ETCHER R CATH & CORONARY ANGIOS 10/31/2019 Aortic valve stenosis, 10:46 AM ELECTROLYTIC ETCHER etiology of cardiac valve disease unspecified POCT-GLUCOSE METER Routine 10/31/2019 8:11 AM ELECTROLYTIC ETCHER (CELLAVISION MANUAL DIFF) Routine 10/31/2019 5:20 AM ELECTROLYTIC ETCHER CBC W/PLT COUNT & AUTO Routine 10/31/2019 DIFFERENTIAL 5:20 AM ELECTROLYTIC ETCHER APTT Routine 10/31/2019 5:20 AM ELECTROLYTIC ETCHER CBC W/PLT COUNT & AUTO Routine 10/31/2019 DIFFERENTIAL 5:20 AM ELECTROLYTIC ETCHER MAGNESIUM Routine 10/31/2019 5:20 AM ELECTROLYTIC ETCHER BASIC METABOLIC PANEL (7) Routine 10/31/2019 5:20 AM ELECTROLYTIC ETCHER POCT-GLUCOSE METER Routine 10/30/2019 9:48 PM ELECTROLYTIC ETCHER POCT-GLUCOSE METER Routine 10/30/2019 4:07 PM ELECTROLYTIC ETCHER HAPTOGLOBIN Routine 10/30/2019 2:35 PM ELECTROLYTIC ETCHER LACTATE DEHYDROGENASE Routine 10/30/2019 (LDH) 2:35 PM ELECTROLYTIC ETCHER HEMOGLOBIN AND HEMATOCRIT Routine 10/30/2019 2:35 PM ELECTROLYTIC ETCHER POCT-GLUCOSE METER Routine 10/30/2019 12:10 PM ELECTROLYTIC ETCHER POCT-GLUCOSE METER Routine 10/30/2019 7:19 AM ELECTROLYTIC ETCHER (CELLAVISION MANUAL DIFF) Routine 10/30/2019 4:19 AM ELECTROLYTIC ETCHER CBC W/PLT COUNT & AUTO Routine 10/30/2019 DIFFERENTIAL 4:19 AM ELECTROLYTIC ETCHER HEPATIC FUNCTION PANEL Add-On 10/30/2019 4:19 AM ELECTROLYTIC ETCHER FERRITIN Add-On 10/30/2019 4:19 AM ELECTROLYTIC ETCHER IRON, TIBC, % SAT. Add-On 10/30/2019 (WITHOUT FERRITIN) 4:19 AM ELECTROLYTIC ETCHER APTT Routine 10/30/2019 4:19 AM ELECTROLYTIC ETCHER TSH Routine 10/30/2019 4:19 AM ELECTROLYTIC ETCHER RPR Routine 10/30/2019 4:19 AM ELECTROLYTIC ETCHER VITAMIN B12 AND FOLATE Routine 10/30/2019 4:19 AM ELECTROLYTIC ETCHER CBC W/PLT COUNT & AUTO Routine 10/30/2019 DIFFERENTIAL 4:19 AM ELECTROLYTIC ETCHER MAGNESIUM Routine 10/30/2019 4:19 AM ELECTROLYTIC ETCHER BASIC METABOLIC PANEL (7) Routine 10/30/2019 4:19 AM ELECTROLYTIC ETCHER POCT-GLUCOSE METER Routine 10/29/2019 8:19 PM ELECTROLYTIC ETCHER POCT-GLUCOSE METER Routine 10/29/2019 5:21 PM ELECTROLYTIC ETCHER POCT-GLUCOSE METER Routine 10/29/2019 11:43 AM ELECTROLYTIC ETCHER BASIC METABOLIC PANEL (7) Add-On 10/29/2019 3:38 AM ELECTROLYTIC ETCHER APTT Routine 10/29/2019 3:38 AM ELECTROLYTIC ETCHER CBC (HEMOGRAM ONLY) Routine 10/29/2019 3:38 AM ELECTROLYTIC ETCHER MAGNESIUM Routine 10/29/2019 3:38 AM ELECTROLYTIC ETCHER ECHOCARDIOGRAM REPORT - 10/28/2019 SCAN 9:22 PM ELECTROLYTIC ETCHER POCT-GLUCOSE METER Routine 10/28/2019 9:12 PM ELECTROLYTIC ETCHER POCT-GLUCOSE METER Routine 10/28/2019 5:34 PM ELECTROLYTIC ETCHER POCT-GLUCOSE METER Routine 10/28/2019 4:07 PM ELECTROLYTIC ETCHER APTT Routine 10/28/2019 12:55 PM ELECTROLYTIC ETCHER POCT-GLUCOSE METER Routine 10/28/2019 12:22 PM ELECTROLYTIC ETCHER 2D ECHO W/ DOPPLER Routine 10/28/2019 (CW/PW/COLOR) 8:44 AM ELECTROLYTIC ETCHER APTT Routine 10/28/2019 4:07 AM ELECTROLYTIC ETCHER CBC (HEMOGRAM ONLY) Routine 10/28/2019 4:07 AM ELECTROLYTIC ETCHER MAGNESIUM Routine 10/28/2019 4:07 AM ELECTROLYTIC ETCHER HEPATIC FUNCTION PANEL Routine 10/28/2019 4:07 AM ELECTROLYTIC ETCHER BASIC METABOLIC PANEL (7) Routine 10/28/2019 4:07 AM ELECTROLYTIC ETCHER POCT-GLUCOSE METER Routine 10/27/2019 9:10 PM ELECTROLYTIC ETCHER APTT Routine 10/27/2019 8:20 PM ELECTROLYTIC ETCHER PROCALCITONIN Routine 10/27/2019 8:20 PM ELECTROLYTIC ETCHER POCT-GLUCOSE METER Routine 10/27/2019 6:[address] BRAIN WITHOUT IV STAT 10/27/2019 CONTRAST 2:07 PM ELECTROLYTIC ETCHER TROPONIN I Routine 10/27/2019 12:32 PM ELECTROLYTIC ETCHER APTT Routine 10/27/2019 11:52 AM ELECTROLYTIC ETCHER URINALYSIS W/ REFLEX Routine 10/27/2019 URINE CULTURE 8:44 AM ELECTROLYTIC ETCHER XR CHEST 1 VIEW Routine 10/27/2019 PORTABLE/BEDSIDE 8:14 AM ELECTROLYTIC ETCHER BLOOD CULTURE Routine 10/27/2019 6:58 AM ELECTROLYTIC ETCHER AMMONIA Routine 10/27/2019 6:57 AM ELECTROLYTIC ETCHER BLOOD CULTURE Routine 10/27/2019 6:05 AM ELECTROLYTIC ETCHER (CELLAVISION MANUAL DIFF) Routine 10/27/2019 6:01 AM ELECTROLYTIC ETCHER CBC W/PLT COUNT & AUTO Routine 10/27/2019 DIFFERENTIAL 6:01 AM ELECTROLYTIC ETCHER TROPONIN I Routine 10/27/2019 6:01 AM ELECTROLYTIC ETCHER B-TYPE NATRIURETIC FACTOR Routine 10/27/2019 (BNP) 6:01 AM ELECTROLYTIC ETCHER APTT Routine 10/27/2019 6:01 AM ELECTROLYTIC ETCHER APTT Routine 10/27/2019 6:01 AM ELECTROLYTIC ETCHER LACTIC ACID, VENOUS Routine 10/27/2019 6:01 AM ELECTROLYTIC ETCHER TSH/FREE T4 IF INDICATED Routine 10/27/2019 6:01 AM ELECTROLYTIC ETCHER CBC W/PLT COUNT & AUTO Routine 10/27/2019 DIFFERENTIAL 6:01 AM ELECTROLYTIC ETCHER PHOSPHORUS Routine 10/27/2019 6:01 AM ELECTROLYTIC ETCHER MAGNESIUM Routine 10/27/2019 6:01 AM ELECTROLYTIC ETCHER PROTHROMBIN TIME/INR Routine 10/27/2019 6:01 AM ELECTROLYTIC ETCHER HEPATIC FUNCTION PANEL Routine 10/27/2019 6:01 AM ELECTROLYTIC ETCHER BASIC METABOLIC PANEL (7) Routine 10/27/2019 6:01 AM ELECTROLYTIC ETCHER POCT-GLUCOSE METER Routine 10/27/2019 5:59 AM ELECTROLYTIC ETCHER after 03/16/2019 Results * RHYTHM STRIP - SCAN (12/03/2019 4:01 PM ELECTROLYTIC ETCHER) Only the most recent of 6 results within the time period is included. Narrative Performed At This result has an attachment that is n ot available. * VASCULAR DIAGRAM -SCAN (11/21/2019 2:00 PM ELECTROLYTIC ETCHER) Narrative Performed At This result has an attachment that is n ot available. * EKG-SCANNED (11/14/2019 11:13 AM ELECTROLYTIC ETCHER) Narrative Performed At This result has an attachment that is n ot available. * CARDIAC CATH REPORT - SCAN (11/14/2019 11:13 AM ELECTROLYTIC ETCHER) Narrative Performed At This result has an attachment that is n ot available. * CARDIAC CATH REPORT - SCAN (11/14/2019 11:13 AM ELECTROLYTIC ETCHER) Narrative Performed At This result has an attachment that is n ot available. * PERMANENT LAB REPORT - SCAN (11/14/2019 11:13 AM ELECTROLYTIC ETCHER) Narrative Performed At This result has an attachment that is n ot available. * POC-Glucose meter (11/13/2019 11:42 AM ELECTROLYTIC ETCHER) Only the most recent of 65 results within the time period is included. POC-Glucose Meter 372 (H)Comment: : TESTED AT 70 - 110 mg/dL [address] [address]: Mortar Carrier/Forensic Toxicologist ID = [id number] for ULISES KELLY Specimen Blood Performing Organization Address [facility] one Number [address] [address] [facility] * Heparin Assay - Unfractionated (11/13/2019 4:43 AM ELECTROLYTIC ETCHER) Only the most recent of 5 results within the time period is included. Anti 10A-Unfractionated 1.10 (HH) 0.30 - 0.70 u/ml [facility] Heparin [facility] Specimen Blood Narrative Performed At Recommendations for Monitoring Unfractionated Heparin [facility] Therapeutic Range: 0.3-0.7 u/mL with continuous I V infusion [facility] Performing Organization Address [facility] [place], [place] Ph one Number [address] [facility] * CBC with platelet count + automated diff (11/13/2019 4:43 AM ELECTROLYTIC ETCHER) Only the most recent of 16 results within the time period is included. WBC 6.1 3.5 - 10.5 K/L [facility] RBC 3.73 (L) 4.63 - 6.08 M/L [facility] Hemoglobin 10.0 (L) 13.7 - 17.5 GM/DL [facility] Hematocrit 32.1 (L) 40.1 - 51.0 % [facility] MCV 86.1 79.0 - 92.2 fL [facility] MCH 26.8 25.7 - 32.2 pg [facility] MCHC 31.2 (L) 32.3 - 36.5 GM/DL [facility] RDW 18.2 (H) 11.6 - 14.4 % [facility] Platelets 160 150 - 450 K/CU MM [facility] MPV 10.4 9.4 - 12.4 fL [facility] nRBC 0 0 - 0 /100 WBC [facility] % Neutros 68 % [facility] % Lymphs 15 % [facility] % Monos 12 % [facility] % Eos 3 % [facility] % Baso 1 % [facility] # Neutros 4.14 1.78 - 5.38 K/L [facility] # Lymphs 0.90 (L) 1.32 - 3.57 K/L [facility] # Monos 0.75 0.30 - 0.82 K/L [facility] # Eos 0.15 0.04 - 0.54 K/L [facility] # Baso 0.08 0.01 - 0.08 K/L [facility] Immature 1 0 - 1 % [facility] Granulocytes-Relative [facility] Specimen Blood Performing Organization Address [facility] [place], [place] Ph one Number [address] [address] [facility] * Prothrombin time/INR (11/13/2019 4:43 AM ELECTROLYTIC ETCHER) Only the most recent of 11 results within the time period is included. Protime 17.9 (H) 11.9 - 14.2 seconds [facility] INR 1.5 <=5.9 [facility] Specimen Blood Narrative Performed At Effective 04/03/2019: PT Reference Range Change [facility] New: 11.9-14.2Previous: 11.7-14.7 [facility] NTER RECOMMENDED COUMADIN/WARFARIN INR THERA PY RANGES STANDARD DOSE: 2.0-3.0Includes: PRO PHYLAXIS for venous thrombosis, systemic embolization; TREATMENT for venous thro mbosis and/or pulmonary embolus. HIGH RISK: Target INR is 2.5-3.5 for pa tients wiht mechanical heart valves. Performing Organization Address [facility] one Number [address] [facility] * Fibrinogen (11/13/2019 4:43 AM ELECTROLYTIC ETCHER) Only the most recent of 5 results within the time period is included. Fibrinogen 362 225 - 434 mg/dl [facility] Specimen Blood Performing Organization Address City/[facility] [place] [place] Ph one Number [address] 7[address] [facility] * Magnesium (11/13/2019 4:43 AM ELECTROLYTIC ETCHER) Only the most recent of 18 results within the time period is included. Magnesium 1.7Comment: Specimen slightly 1.6 - 2.6 mg/dL [facility] Specimen Blood Performing Organization Address City/[facility] one Number [place] [address] [facility] * Basic metabolic panel (11/13/2019 4:43 AM ELECTROLYTIC ETCHER) Only the most recent of 18 results within the time period is included. Sodium 137 136 - 145 meq/L [facility] Potassium 4.6Comment: Specimen slightly 3.5 - 5.1 meq/L [facility] Chloride 105 98 - 107 meq/L [facility] CO2 25 22 - 29 meq/L [facility] BUN 30 (H) 7 - 21 mg/dL [facility] Creatinine 1.36 (H)Comment: Specimen 0.57 - 1.25 mg/dL [facility] slightly hemolyzed [facility] Glucose 164 (H) 70 - 105 mg/dL [facility] Calcium 9.0 8.4 - 10.2 mg/dL [facility] EGFR 50Comment: ESTIMATED GFR IS mL/min/1.73 sq m [facility] NOT ACCURATE CREATININE [facility] CLEARANCE IN PREDICTING GLOMERULAR FILTRATION RATE. ESTIMATED GFR IS NOT APPLICABLE FOR DIALYSIS PATIENTS. Specimen Blood Performing Organization Address City/[facility] one Number [address] 770 [facility] * Manual Differential (11/12/2019 5:01 AM ELECTROLYTIC ETCHER) Only the most recent of 8 results within the time period is included. % Neutros 80 % [facility] % Lymphs 8 % [facility] % Monos 8 % [facility] % Eos 1 % [facility] % Baso 1 % [facility] % Atypical Lymphs 2 (H) 0 - 0 % [facility] # Neutros 4.40 1.78 - 5.38 K/ul [facility] # Lymphs 0.44 (L) 1.32 - 3.57 K/ul [facility] # Monos 0.44 0.30 - 0.82 K/uL [facility] # Eos 0.06 0.04 - 0.54 K/uL [facility] # Baso 0.06 0.01 - 0.08 K/uL [facility] # Atypical Lymphs 0.11 (H) 0.00 - 0.00 K/uL [facility] Total Counted [address] [facility] WBC Morphology Normal [facility] Platelet Morphology Normal [facility] Polychromasia 2+ moderate [facility] Hypochromia 1+ few [facility] Artifact Present [facility] Platelet Conc Decreased [facility] Specimen Blood Narrative Performed At Received comment: [facility] User comments: [facility] Slide comments: Performing Organization Address City/State/Zipcode Ph one Number [facility] [address] [place], [place] [address] MED[facility]ENTER * ECHOCARDIOGRAM REPORT - SCAN (11/11/2019 9:21 PM ELECTROLYTIC ETCHER) Narrative Performed At This result has an attachment that is n ot available. * XR chest 1 view portable / bedside (11/10/2019 2:43 AM ELECTROLYTIC ETCHER) Only the most recent of 4 results within the time period is included. Specimen Narrative Performed At FINAL REPORT GE [employer] CLINICAL INDICATION: IABP position Comparison: 11/09/2019 No [...] External Ris In - 11/10/2019 4:35 AM ELECTROLYTIC ETCHER FINAL REPORT CLINICAL INDICATION: IABP position Comparison: [...] Date/Time: 11/10/2019 04:33:45 Performing Organization Address [facility] [place] [place] Ph one Number GE RIS * Lactic acid, venous (11/10/2019 1:34 AM ELECTROLYTIC ETCHER) Only the most recent of 2 results within the time period is included. Lactate, Venous 1.7Comment: Specimen slightly 0.5 - 2.2 mmol/ L [facility] hemolyzed [facility] Specimen Blood Performing Organization Address [facility] [place] [place] Ph one Number [address] [address] MEDICAL CENTER * Troponin I (11/10/2019 1:22 AM ELECTROLYTIC ETCHER) Only the most recent of 3 results within the time period is included. Troponin I 0.25 (HH) 0.00 - 0.03 ng/mL [facility] Specimen Blood Narrative Performed At Troponin I (TnI) levels must be interpreted in the co ntext of the presenting [facility] symptoms and the clinical findings. Elevated TnI leve ls indicate myocardial [facility] damage, but are not specific for ischem ic heart disease. Elevated TnI levels are seen in patients with other cardiac con ditions (including myocarditis and congestive heart failure), and slight T nI elevations occur in patients with other conditions, including sepsis, anthony al failure, acidosis, acute neurological disease, and persistent tachyarrhythmia . Performing Organization Address [facility] one Number [address] 7[address] MEDICAL CENTER * ECG 12 lead (11/10/2019 12:43 AM ELECTROLYTIC ETCHER) Only the most recent of 2 results within the time period is included. Specimen Narrative Performed At Ventricular Rate 81 BPM GE MUSE Atrial Rate 73 BPM QRS Duration 100 ms Q-T Interval 402 ms QTC Calculation(Bazett) 466 ms R Cowen -47 degrees T Cowen 172 degrees Atrial fibrillation Left axis deviation Anteroseptal infarct , age undetermined ST & T wave abnormality, consider later al ischemia Abnormal ECG Confirmed by MD PALMER MAJID ([id number]) on 11/10/2019 1:25:58 PM Procedure Note Interface, External Ris In - 11/10/2019 1:26 PM ELECTROLYTIC ETCHER Ventricular Rate 81 BPM Atrial Rate 73 BPM QRS Duration 100 ms Q-T Interval 402 ms QTC Calculation(Bazett) 466 ms R Cowen -47 degrees T Cowen 172 degrees Atrial fibrillation Left axis deviation Anteroseptal infarct , age undetermined ST & T wave abnormality, consider lateral ischemia Abnormal ECG Confirmed by MD PALMER MAJID ([id number]) on 11/10/2019 1:25:58 PM Performing Organization Address City/[facility] one Number GE MUSE * ECHOCARDIOGRAM REPORT - SCAN (11/09/2019 9:21 PM ELECTROLYTIC ETCHER) Narrative Performed At This result has an attachment that is n ot available. * TRANSFUSION SERVICE REPORT - SCAN (11/09/2019 6:02 PM ELECTROLYTIC ETCHER) Narrative Performed At This result has an attachment that is n ot available. * 2D Echo W/Doppler(CW/PW/Color) (11/09/2019 1:57 PM ELECTROLYTIC ETCHER) Ejection Fraction [facility] ECHO HEARTLAB [facility] Specimen Narrative Performed At Transthoracic Echocardiography Report (TTE) [facility] ECH O HEARTLAB Demographics [facility] Patient Name Stephanie MUNOZ ate of Study11/09/2019 OSMEL [id number] Gender Male Visit Number [id number] Jodi kasper Unknown [id number] Room [id number] Number Date of Birth1930 Ref erring Physician Age89 year(s) SonographerMjae Truong [facility] RDCS AnalystAlex Kathy Interpreting Palak Vicente, PhysicianMD [...] External Ris In - 11/09/2019 6:28 PM ELECTROLYTIC ETCHER Transthoracic Echocardiography Report (TTE) Demographics Patient Name BREANA, Date of Study 11/09/2019 OSMEL Gender Male Visit Number [id number] Race Unknown Room Number 6217 Number Date of 1930 Referring Physician Age 89 year(s) Hearing Aid Assistant Alejandra Rios RDCS Translator/Interpreter Joshua Chavez Interpreting Physician KAITLYNN Neumann Procedure [...] annular calcification. Moderate mitral regurgitation. Tricuspid Valve Lngt-hp-buatbpwc tricuspid regurgitation. Estimated peak systolic PA pressure [...] CI: 3.47 l/min/m^2 Performing Organization Address [facility] [place] [place] Ph one Number [facility] ECHO HEARTLAB MKCKESSON CP[facility] * aPTT (11/09/2019 4:17 AM ELECTROLYTIC ETCHER) Only the most recent of 25 results within the time period is included. PTT 38.1 (H) 22.5 - 36.0 seconds [facility] Specimen Blood Performing Organization Address City/[facility] [place] [place] Ph one Number [place] [address] [facility] * Thromboelastograph (TEG) (11/08/2019 8:59 PM ELECTROLYTIC ETCHER) Only the most recent of 2 results within the time period is included. TEG Activated Clotting 11.0 (H) 4.0 - 7.0 minutes [facility] TEG Fibrinogen Activity 42.4 (L) 61.0 - 73.0 degrees [facility] TEG Platelet Aggregation 53.4 (L) 55.0 - 65.0 MM [facility] TEG Fibrinolysis 0.0 0.0 - 5.0 % [facility] TEG-H Activated Clotting 4.2 4.0 - 7.[address] [facility] TEG-H Fibrinogen Activity 74.9 (H) 61.0 - 73.[address] [facility] TEG-H Platelet 62.8 55.0 - 65.[address] [facility] Aggregation [facility] TEG-H Fibrinolysis 0.2 0.0 - 5.0 % [facility] Specimen Blood Performing Organization Address [facility] one Number [place] [address] [facility] * Hemoglobin A1c (11/08/2019 8:59 PM ELECTROLYTIC ETCHER) Hemoglobin A1C 8.9 (H) 4.3 - 6.1 % [facility] Specimen Blood Performing Organization Address [facility] one Number [place] [address] [facility] * D-dimer (11/08/2019 3:26 PM ELECTROLYTIC ETCHER) D-Dimer, Quant 2.20 (H) <0.50 MG/L FEU [facility] Specimen Blood Narrative Performed At Intended Use: The D-Dimer Assay can be used to aid in the diagnosis of Deep Vein [facility] Thrombosis (DVT) and Pulmonary Embolism Disease (PED) . [facility] In patients with low pre-test probabili ty, various studies concerning STA Liatest D-dimer test have reported that with a cutoff value of 0.50 MG/L FEU, the Negative Predictive Value (NPV) reg arding the exclusion of thrombosis is within 95-100% range. Prior to Initiating Heparin Performing Organization Address [facility] one Number [address] [facility] * Antithrombin III (11/08/2019 3:26 PM ELECTROLYTIC ETCHER) Antithrombin III 50.0 (L) 80.0 - 120.0 % [facility] Specimen Blood Narrative Performed At Prior to Initiating Heparin [facility] Performing Organization Address [facility] Number [address] [facility] * Prepare Leuko-Red RBC (11/08/2019 2:15 PM ELECTROLYTIC ETCHER) CROSSMATCH COMPATIBLE SAFETRACE TX Unit ABO A Neg SAFETRACE TX UNIT NUMBER [id number] SAFETRACE TX Status RETURNED FROM ISSUE SAFETRACE TX Blood Bank Product RED BLOOD CELLS SAFETRACE TX PRODUCT CODE [id number] SAFETRACE TX CROSSMATCH COMPATIBLE SAFETRACE TX Unit ABO A Neg SAFETRACE TX UNIT NUMBER [id number] SAFETRACE TX Status RETURNED FROM ISSUE SAFETRACE TX Blood Bank Product RED BLOOD CELLS SAFETRACE TX PRODUCT CODE [id number] SAFETRACE TX Specimen Other Performing Organization Address [facility] Number SAFETRACE TX * POC ACTIVATED CLOTTING TIME (11/08/2019 12:44 PM ELECTROLYTIC ETCHER) Only the most recent of 3 results within the time period is included. Activated Clotting Time 263Comment: Reference Range: sec [facility] 74-137 seconds, [facility] Baseline/TESTED AT [address] [address] Specimen Blood Performing Organization Address [facility]/[address] 770 [phone] [address] * Transesophageal echo (11/08/2019 10:49 AM ELECTROLYTIC ETCHER) Ejection Fraction [facility] ECHO HEARTLAB [facility] Specimen Narrative Performed At Transesophageal Echocardiography Report (SILVIANO) [facility] Jillian [facility]ART[facility] Demographics [facility] Patient Name Stephanie MUNOZ ate of Study 11/08/2019 OSMEL [id number] GenderMale Visit Number [id number] [facility] [id number] Room Number 1427 Number Date of Birth1930 Ref erring Physician Adam Wynne MD Age89 year(s) Hearing Aid Assistant Gorge williamson MD Physician Procedure Type of Study SILVIANO procedure:TRANSESOPHA GEAL ECHO Indications:TAVR. Clinical History A-FIB,DM,HLD,HTN Height: 68 inches Weight: 73.48 kg (162 lbs) BSA: 1.87 m^2 BMI: 24.63 kg/m^2 HR: 109 bpm BP: 159/91 mmHg Summary Procedural SLIVIANO to guide TAVR procedure Pre procedural SILVIANO [...] annular calcif ication. Mild MV leaflet thickening. Srlr-cu-oziruilc mitral regurgitation. TricuspidMild tricuspid regurgi tation. Valve Pulmonic Normal PV structure an d function by limited views and ValveDoppler. PericardiumA small posterior perica rdial effusion is present . Procedure Note Interface, External Ris In - 11/11/2019 11:36 AM ELECTROLYTIC ETCHER Transesophageal Echocardiography Report (SILVIANO) Demographics Patient Name BREANA, Date of Study 11/08/2019 OSMEL Gender Male Visit Number [id number] Race Unknown Room Number 1427 Number Date of 1930 Referring Physician Adam Wynne MD Age 89 year(s) Hearing Aid Assistant Gorge Jaeger Interpreting Sameer Eric MD Physician [...] mitral annular calcification. Mild MV leaflet thickening. Sgxx-vf-taegeyda mitral regurgitation. Tricuspid Mild tricuspid regurgitation. Valve Pulmonic Normal PV structure and function by limited views and Valve Doppler. Pericardium A small posterior pericardial effusion is present . Performing Organization Address [facility] Number [facility] ECHO HEARTLAB MKCKESSON CPACS * ABORH, manual (11/08/2019 3:21 AM ELECTROLYTIC ETCHER) Only the most recent of 2 results within the time period is included. ABO Grouping A [facility] Rh Factor NEG [facility] Specimen Blood Performing Organization Address [address] * Type and screen, automated (11/08/2019 2:26 AM ELECTROLYTIC ETCHER) Ab Scrn NEGATIVEComment: done on echo2 [facility] Specimen Blood Performing Organization Address [place] [address] [place] [address] * B-type Natriuretic Factor (BNP) (11/08/2019 2:26 AM ELECTROLYTIC ETCHER) Only the most recent of 2 results within the time period is included. BNP 2,300 (H) 0 - 100 pg/mL [facility] Specimen Blood Performing Organization Address [facility] one [address] [address] [facility] * PULMONARY FUNCTION - SCAN (11/05/2019 6:40 AM ELECTROLYTIC ETCHER) Narrative Performed At This result has an attachment that is n ot available. * CTA chest (11/04/2019 10:49 AM ELECTROLYTIC ETCHER) Specimen Narrative Performed At Addendum Begins Roojoom REPORT STATUS:A ADDENDUM: Study reviewed by radiology. Agree with the nonvascular findings as described below. Multiple enlarged medi astinal nodes are present, including prevascular, paratracheal, castellanos bcarinal, and bilateral perihilar regions, neoplasm cannot be e xcluded. Consider PET/CT or bronchoscopy for biopsy. Signed: Reji Fish MD Report Verified Date/Time: 9 09:54:17 Reading Location: [place] [id number] Angio Bod y Reading Room Addendum Ends [...] the contrast sheet scan helen in the [employer] system for the amount and route of [...] 5.9 mm, respectively with mildtortu osity and xcob-pl-pxkhocfo calcific atherosclerosis present. The minimum and the perpendicular right common iliac artery measures 10.2 and 10.4 mm, respectively with mil x-tk-ewqlsmizjklxaldjfv and zipf-as-snynbiiciubifevd atheroscle rosis present. The minimum and the perpendicular rightexternal perry ac artery measures 8.1 and 83 mm, respectively with gkvq-vd-qklsyuil tortuosity and mildcalcific atherosclerosis present. The minimum [...] rega rding the non-vascular findings by the Butt Maker Radiologist. Signed: Tyler Chin MD Report Verified Date/Time: 9 11:43:12 Procedure Note Interface, External Ris In - 11/05/2019 9:56 AM ELECTROLYTIC ETCHER Addendum Begins REPORT STATUS:A ADDENDUM: Study reviewed by radiology. Agree with the nonvascular findings as described below. Multiple enlarged mediastinal nodes are present, including prevascular, paratracheal, subcarinal, and bilateral perihilar regions, neoplasm cannot be excluded. Consider PET/CT or bronchoscopy for biopsy. Signed: Reji Fish MD Report Verified Date/Time: 11/05/2019 09:54:17 Reading Location: [facility] P048 Angio Body Reading Room Addendum Ends [...] mm, respectively with mild tortuosi ty and vpwk-lz-ykgspzzo calcific atherosclerosis present. The minimum and the perpendicular right common iliac artery measures 10.2 and 10.4 mm, respectively with mild -to-moderate tortuosity and kyfq-cp-qrdrbplw calcific atherosclerosis present. The minimum and the perpendicular right external iliac artery measures 8.1 and 83 mm, respectively with aqga-ff-jygpbqji tortuosity and mild calcific atherosclerosis present. The [...] regardi ng the non-vascular findings by the Butt Maker Radiologist. Signed: Tyler Chin MD Report Verified Date/Time: 11/04/2019 11:43:12 Performing Organization Address City/State/Zipcode Ph one Number GE RIS * CTA abdomen & pelvis (11/04/2019 10:49 AM ELECTROLYTIC ETCHER) Specimen Narrative Performed At Addendum Begins [facility] RIS REPORT STATUS:A ADDENDUM: Study reviewed by radiology. Agree with the nonvascular findings as described below. Multiple enlarged medi astinal nodes are present, including prevascular, paratracheal, castellanos bcarinal, and bilateral perihilar regions, neoplasm cannot be e xcluded. Consider PET/CT or bronchoscopy for biopsy. Signed: Reji Fish MD Report Verified Date/Time: 9 09:54:17 Reading Location: [facility] P048 Angio Bod y Reading Room Addendum [...] 5.9 mm, respectively with mildtortu osity and einf-bw-jkbinble calcific atherosclerosis present. The minimum and the perpendicular right common iliac artery measures 10.2 and 10.4 mm, respectively with mil i-as-gioqvtrzpsemxpadta and kxcj-kz-kuyqjdpnsbjimbxa atheroscle rosis present. The minimum and the perpendicular rightexternal perry ac artery measures 8.1 and 83 mm, respectively with tzig-xg-kyvhsvay tortuosity and mildcalcific atherosclerosis present. The minimum [...] rega rding the non-vascular findings by the Butt Maker Radiologist. Signed: Tyler Chin MD Report Verified Date/Time: 9 11:43:12 Procedure Note Interface, External Ris In - 11/05/2019 9:56 AM ELECTROLYTIC ETCHER Addendum Begins REPORT STATUS:A ADDENDUM: Study reviewed by radiology. Agree with the nonvascular findings as described below. Multiple enlarged mediastinal nodes are present, including prevascular, paratracheal, subcarinal, and bilateral perihilar regions, neoplasm cannot be excluded. Consider PET/CT or bronchoscopy for biopsy. Signed: Reji Fish MD Report Verified Date/Time: 11/05/2019 09:54:17 Reading Location: [facility] P048 Angio Body Reading Room Addendum Ends [...] mm, respectively with mild tortuosi ty and wxwz-bn-cbnfuizk calcific atherosclerosis present. The minimum and the perpendicular right common iliac artery measures 10.2 and 10.4 mm, respectively with mild -to-moderate tortuosity and guan-pq-jvbhgwsm calcific atherosclerosis present. The minimum and the perpendicular right external iliac artery measures 8.1 and 83 mm, respectively with yqdm-pg-ropwoefd tortuosity and mild calcific atherosclerosis present. The [...] regardi ng the non-vascular findings by the Butt Maker Radiologist. Signed: Tyler Chin MD Report Verified Date/Time: 11/04/2019 11:43:12 Performing Organization Address [facility]State[facility] one Number RIS * Osmolality, serum (11/03/2019 4:09 PM ELECTROLYTIC ETCHER) Osmolality Serum 300 (H) 275 - 295 mOsm/kg [facility] Specimen Blood Performing Organization Address City/State/[facility] Ph one Number [facility] [address] [place], [place] [address] [facility] * Osmolality, urine (11/03/2019 4:08 PM ELECTROLYTIC ETCHER) Osmolality, Ur 230 40-1,400 mOsm/kg [facility] Specimen Urine Performing Organization Address City/State/Zipcode Ph one Number [facility] [address] [place] [address] [facility] * Manual Differential (11/03/2019 4:05 AM ELECTROLYTIC ETCHER) % Neutros (manual) 73 % [facility] % Lymphs (manual) 15 % [facility] % Monos (manual) 8 % [facility] % Eos (manual) 2 % [facility] % Baso (manual) 1 % [facility] % Myelo (manual) 1 (H) 0 - 0 % [facility] # Neutros (manual) 5.18 1.80 - 8.00 K/L [facility] # Lymphs (manual) 1.07 (L) 1.48 - 4.50 K/L [facility] # Monos (manual) 0.57 0.00 - 1.30 K/L [facility] # Eos (manual) 0.14 0.00 - 0.50 K/L [facility] # Baso (manual) 0.07 0.00 - 0.20 K/L [facility] # Myelo (manual) 0.07 (H) 0.00 - 0.00 K/L [facility] Total Counted 100 [facility] WBC Morphology Normal [facility] Platelet Morphology Normal [facility] Anisocytosis 1+ few [facility] [place] Cells 3+ many [facility] Elliptocytes 1+ few [facility] Poikilocytes 3+ many [facility] Specimen Blood Performing Organization Address City/State/Zipcode Ph one Number [facility] [address] [place], [place] [address] MED[facility]ENTER * US renal complete (11/03/2019 12:51 AM ELECTROLYTIC ETCHER) Specimen Narrative Performed At FINAL REPORT [facility] RIS Renal ultrasound dated 11/03/2019 CLINICAL HISTORY: [...] External Ris In - 11/03/2019 6:55 AM ELECTROLYTIC ETCHER FINAL REPORT Renal ultrasound dated 11/03/2019 CLINICAL [...] Verified Date/Time: 11/03/2019 02:31:25 Performing Organization Address City/State/[facility] Ph one Number RIS * Urea Nitrogen, random urine (11/02/2019 3:24 PM ELECTROLYTIC ETCHER) Urea Nitrogen, Ur 492 mg/dL [facility] Specimen Urine Narrative Performed At Reference Range: No Normals [facility] Performing Organization Address City/[facility] Cent[facility]ode Ph one Number [address] [facility] * Sodium, random urine (11/02/2019 3:24 PM ELECTROLYTIC ETCHER) Sodium Urine 29 meq/L [facility] Specimen Urine Narrative Performed At Reference Range: No Normals [facility] Performing Organization Address City/[facility] Cent[facility]ode Ph one Number [address] [facility] * Creatinine, random urine (11/02/2019 3:24 PM ELECTROLYTIC ETCHER) Creatinine, Ur 61.3 mg/dL [facility] Specimen Urine Narrative Performed At Reference Range: No Normals [facility] Performing Organization Address City/[facility] Cent[facility]ode Ph one Number [address] [phone] [place] [address] * Urinalysis w/Microscopic (11/02/2019 3:24 PM ELECTROLYTIC ETCHER) Color, UA Yellow [facility] Clarity, UA Clear [facility] Specific [place], UA 1.009 1.001 - 1.035 [facility] pH, UA 5.0 5.0 - 8.0 [facility] Protein, UA 20 mg/dL (A) Negative [facility] Glucose, UA Negative Negative [facility] Ketones, UA Negative Negative [facility] Bilirubin, UA Negative Negative [facility] Blood, UA Small (A) Negative [facility] Nitrite, UA Negative Negative [facility] Leukocytes, UA Negative Negative [facility] Urobilinogen, UA 0.2 0.2 - 1.0 mg/dL [facility] RBC, UA 2 /HPF [facility] WBC, UA 1 /HPF [facility] Mucus Rare [facility] Squam Epithel, UA <1 /HPF [facility] Yeast Rare [facility] Specimen Source [facility] Specimen Urine Performing Organization Address City/State/Zipcode Ph one Number [place] [phone] [place] [address] * PERIPHERAL VASCULAR REPORT - SCAN (11/01/2019 9:21 PM ELECTROLYTIC ETCHER) Narrative Performed At This result has an attachment that is n ot available. * Pulmonary Funct Lab Spirometry (11/01/2019 1:31 PM ELECTROLYTIC ETCHER) Narrative Performed At Nadine Ramirez, EVY, POLICY MANAGER 10/072:21 PM [facility] PFT CHARTING REPORT Infection Control/Hand Hygiene procedur es followed throughout the encounter with patient: Yes Patient Identification Method: Patient name verified on armband, and Medical record on armband, Is the order complete?: Yes Account ID#: [id number] Patient Name: Osmel Munoz Birthdate: 1930 Age: [...] * Carotid doppler bilateral (10/31/2019 7:40 PM ELECTROLYTIC ETCHER) Ejection Fraction [facility] ECHO HEARTLAB MKCKESSON CPACS Specimen Impressions Performed At Right Impression [facility] ECHO HEARTLAB 1. There is <50% diameter [...] Performed At LAB - Carotid Duplex Study [facility] ECHO HEARTLAB [facility] Patient NameSOSMEL MARTIN Date of Study 10/31/2019 89 Visit [id number] le Date of 1930 Referring Omaira Mcgee Room Number 1431 Physician Hearing Aid Assistant Sherrie Jimenez [facility], [facility] Physician Procedure Type of Study: Cerebral: Carotid, CAROTID DOPPLER, HAKEEM ATERAL. 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 Patient Status:Routine. Study Location:Portable. Technical Quality:Adequate visualizatio n. Risk Factors History of Disease + +-- --------+ + !Diagnosis!Date! Comments ! + +-- --------+ + !History/Risk Factors: !10/31/2019!aortic stenosis! + +-- --------+ + Procedure Note Interface, External Ris In - 11/01/2019 12:41 PM ELECTROLYTIC ETCHER PV LAB - Carotid Duplex Study Demographics Patient Name OSMEL MUNOZ Date of Study 10/31/2019 Age 89 Visit Number [id number] Gender Male Accession Number [id number] Date of 1930 Referring Omaira Mcgee Room Number 1431 Physician Hearing Aid Assistant Sherrie Jimenez Interpreting Anat Mims T Physician [...] Additional Measurements:ICAPSV/CCAPSV 1.3.ICAEDV/CCAEDV 1.2. Performing Organization Address City/[facility] [place] [place] Ph one Number [facility] ECHO HEARTLAB MKCKESSON CPACS * Hemoglobin and hematocrit (10/30/2019 2:35 PM ELECTROLYTIC ETCHER) Hemoglobin 10.4 (L) 13.7 - 17.5 GM/DL [facility] Hematocrit 33.4 (L) 40.1 - 51.0 % [facility] Specimen Blood Performing Organization Address [facility] one Number [address] [facility] * Lactate dehydrogenase (LDH) (10/30/2019 2:35 PM ELECTROLYTIC ETCHER) LDH 332 (H) 125 - 220 U/L [facility] Specimen Blood Performing Organization Address [facility] [place] [place] Ph one Number [address] [facility] * Haptoglobin (10/30/2019 2:35 PM ELECTROLYTIC ETCHER) Haptoglobin 92 14 - 258 mg/dL [facility] Specimen Blood Performing Organization Address [facility] [place] Ph one Number [address] [facility] * Vitamin B12 and Folate (10/30/2019 4:19 AM ELECTROLYTIC ETCHER) Vitamin B12 1,558 (H) 213 - 816 pg/mL [facility] Folate 13.0 >=7.0 ng/mL [facility] Specimen Blood Performing Organization Address City/[facility] Ph one Number [address] [facility] * Iron, TIBC, % sat. (without ferritin) (10/30/2019 4:19 AM ELECTROLYTIC ETCHER) Iron 37.0 (L) 40.0 - 160.0 ug/dL [facility] TIBC 254 250 - 450 ug/dL [facility] Iron % Saturation 15 (L) 20 - 55 % [facility] Specimen Blood Performing Organization Address City/[facility] Ph one [address] 0 [phone] [place] [address] * RPR (10/30/2019 4:19 AM ELECTROLYTIC ETCHER) RPR Nonreactive Nonreactive [facility] Specimen Blood Performing Organization Address City/[facility] Ph one [address] 0 [phone] [place] [address] * TSH (10/30/2019 4:19 AM ELECTROLYTIC ETCHER) TSH 2.70 0.35 - 4.94 uIU/mL [facility] Specimen Blood Performing Organization Address City/[facility] Ph one [address] 0 [phone] [place] [address] * Ferritin (10/30/2019 4:19 AM ELECTROLYTIC ETCHER) Ferritin 179 5 - 275 ng/mL [facility] Specimen Blood Performing Organization Address [facility] Ph one [address] 0 [phone] [place] [address] * Hepatic function panel (10/30/2019 4:19 AM ELECTROLYTIC ETCHER) Only the most recent of 3 results within the time period is included. Protein, Total 6.2 6.0 - 8.3 gm/dL [facility] Albumin 3.2 (L) 3.5 - 5.0 g/dL [facility] Total Bilirubin 0.5 0.2 - 1.2 mg/dL [facility] Bilirubin, Direct 0.4 0.1 - 0.5 mg/dL [facility] Alkaline Phosphatase 51 40 - 150 U/L [facility] AST 28 5 - 34 U/L [facility] ALT 17 6 - 55 U/L [facility] Specimen Blood Performing Organization Address City/State/[facility] Ph one Number [facility] [address] [place], [place] [address] [facility] * CBC (Hemogram only) (10/29/2019 3:38 AM ELECTROLYTIC ETCHER) Only the most recent of 2 results within the time period is included. WBC 7.0 3.5 - 10.5 K/L [facility] RBC 4.03 (L) 4.63 - 6.08 M/L [facility] Hemoglobin 10.6 (L) 13.7 - 17.5 GM/DL [facility] Hematocrit 33.3 (L) 40.1 - 51.0 % [facility] MCV 82.6 79.0 - 92.2 fL [facility] MCH 26.3 25.7 - 32.2 pg [facility] MCHC 31.8 (L) 32.3 - 36.5 GM/DL [facility] RDW 14.9 (H) 11.6 - 14.4 % [facility] Platelets 249 150 - 450 K/CU MM [facility] MPV 10.6 9.4 - 12.4 fL [facility] nRBC 2 (H) 0 - 0 /100 WBC [facility] Specimen Blood Performing Organization Address City/State/Zipcode Ph henrique Tucker [facility] [address] [place], [place] [address] [facility] * ECHOCARDIOGRAM REPORT - SCAN (10/28/2019 9:22 PM ELECTROLYTIC ETCHER) Narrative Performed At This result has an attachment that is n ot available. * 2D Echo W/Doppler(CW/PW/Color) (10/28/2019 8:44 AM ELECTROLYTIC ETCHER) Ejection Fraction [facility] ECHO HEARTLAB MKIdeagenESSON [facility] Specimen Narrative Performed At Transthoracic Echocardiography Report (TTE) [facility] ECH O HEARTLAB Demographics [facility] Patient NameSTEWART, Date of Study10/28/2019 OSMEL Gender Male Visit [id number] Race Unknown Room [id number] Number Date of 1930 Molly peterson PhysicianSARINA Phillips Age 89 year(s) SonographerMarisa Ely [facility] Translator/Interpreter Joshua Chavez Interpreting Sameer Wallis MD Physician [...] itral annular calcification. Mild MV leaflet thickening. Uahd-vi-rzyiizuf mitral regurgitation. Tricuspid ValveMild-to- moderate tricuspid regurgitation. [...] External Ris In - 10/28/2019 3:35 PM ELECTROLYTIC ETCHER Transthoracic Echocardiography Report (TTE) Demographics Patient Name BREANA, Date of Study 10/28/2019 OSMEL Gender Male Visit Number [id number] Race Unknown Room Number C618 Number Date of 1930 Referring Physician SARINA Phillips Age 89 year(s) Hearing Aid Assistant Marisa Ely [facility] Translator/Interpreter Joshua Chavez Interpreting Sameer Wallis MD Physician [...] mitral annular calcification. Mild MV leaflet thickening. Simy-xz-qaykxdro mitral regurgitation. Tricuspid Valve Cvhw-he-ekvydpnt tricuspid regurgitation. Estimated peak systolic PA pressure [...] MKCKESSON CPACS * Procalcitonin (10/27/2019 8:20 PM ELECTROLYTIC ETCHER) Procalcitonin 0.06 (H) <0.05 ng/mL [facility] Specimen Blood Narrative Performed At SEPSIS RISK (ng/mL) [facility] Low:0.05-0.50 [facility] Intermediate: 0.51-2.00 High: >=2.01 Performing Organization Address City/State/Zipcode Ph one Number [facility] [address] [place], [place] [address] [facility] [facility] * CT brain without IV contrast (10/27/2019 2:07 PM ELECTROLYTIC ETCHER) Specimen Narrative Performed At FINAL REPORT GE [...] intracranial pathology, MR examination is recommended for [facility] characterization. Signed: Maria Vila MD Report Verified Date/Time: 9 14:13:39 Procedure Note Interface, External Ris In - 10/27/2019 2:15 PM ELECTROLYTIC ETCHER FINAL REPORT CT, BRAIN, WITHOUT CONTRAST INDICATION: [...] + Reflex to Culture (10/27/2019 8:44 AM ELECTROLYTIC ETCHER) Color, UA Light Yellow [facility] Clarity, UA Clear [facility] Specific [place], UA 1.008 1.001 - 1.035 [facility] pH, UA 5.0 5.0 - 8.0 [facility] Protein, UA 20 mg/dL (A) Negative [facility] Glucose, UA Negative Negative [facility] Ketones, UA Negative Negative [facility] Bilirubin, UA Negative Negative [facility] Blood, UA Small (A) Negative [facility] Nitrite, UA Negative Negative [facility] Leukocytes, UA Negative Negative [facility] Urobilinogen, UA 0.2 0.2 - 1.0 mg/dL [facility] RBC, UA 3 /HPF [facility] WBC, UA <1 /HPF [facility] Specimen Source [facility] Specimen Urine Performing Organization Address City/[facility] [place] Ph one Number [address] [facility] * Blood Culture - Routine (Right Venipuncture) (10/27/2019 6:58 AM ELECTROLYTIC ETCHER) Only the most recent of 2 results within the time period is included. Result No growth in 5 days [facility] Specimen Blood Performing Organization Address [facility] Ph one Number [address] [phone] [place] [address] * Ammonia (10/27/2019 6:57 AM ELECTROLYTIC ETCHER) Ammonia 16 (L) 18 - 72 mol/L [facility] Specimen Blood Performing Organization Address [facility] [place] [place] Ph one Number [address] 0 [phone] [place] [address] * TSH/Free T4 If Indicated (10/27/2019 6:01 AM ELECTROLYTIC ETCHER) TSH 1.45 0.35 - 4.94 uIU/mL [facility] Specimen Blood Performing Organization Address [facility] Ph one Number [place] [phone] [place] [address] * Phosphorus (10/27/2019 6:01 AM ELECTROLYTIC ETCHER) Phosphorus 3.1 2.3 - 4.7 mg/dL [facility] Specimen Blood Performing Organization Address City/State/Zipcode Ph one Number [facility] [employer] [facility] [address] [place], [place] [address] MEDICAL CENTER after 03/16/2019 Insurance Payer Benefit Subscriber ID Type Phone Address Plan / Group [employer] CIGNA xxxxxxxxxxx [employer] HEALTHSPRI Contracted NG ALL [phone] Advance Directives For more information, please contact: [facility] [place] [phone] [place], [place] [phone] Date Inactivated Comments Code Status Date Activated 11/13/2019 4:48 PM Full Code 10/31/2019 11:22 AM This code status was determined by: Patient 10/31/2019 11:22 AM Full Code 10/27/2019 1:04 AM This code status was determined by: Patient
[2020-03-16] MEDS: INSULIN LISPRO 100 UNIT/1 ML 3ML VIAL SQ SCH (19:07)
--- NOTE | 2020-03-16 19:20 | NUR ---
RECEIVED PATIENT FROM THE EMERGENCY ROOM PER WHEELCHAIR, NO DISTRESS NOTED. POSITIONED IN BED, TELEMETRY REMAIN ON, CALL LIGHT IN REACH. ASSESSMENT DONE. WILL CONTINUE TO MONITOR.
[2020-03-16 19:35] VITALS: BP 190/83
[2020-03-16] MEDS ORDERED: PLAVIX75 MG PO (21:56)
[2020-03-16] MEDS ORDERED: HYDRALAZINE HCL10 MG PO (21:56)
[2020-03-16] MEDS ORDERED: FUROSEMIDE40 MG PO (21:56)
[2020-03-16] MEDS ORDERED: COREG12.5 MG PO (21:56)
[2020-03-16] MEDS ORDERED: TOUJEO SOL300 UNIT/1 SUBD (21:59)
[2020-03-16 23:30] VITALS: BP 176/91
[2020-03-16 23:32] VITALS: BP 190/83
[2020-03-16 23:44] VITALS: BP 176/91
[2020-03-17] VITALS (8 sets, daily range): BP systolic 140–186; BP diastolic 73–93
--- NOTE | 2020-03-17 00:01 | NUR ---
REPORT GIVEN TO NURSE. PATIENT CONTINUE RESTING, NO COMPLAINTS OF CHEST PAINS. REMAIN ON TELEMETRY--AFIB. CALL LIGHT IN REACH.
--- NOTE | 2020-03-17 01:40 | NUR ---
RECEIVED PT IN BED AOX2.RESPIRATIONS ARE EVEN AND UNLABORED.PT HAS TELE SHOWS AFIB NO ACUTE DISTRESS NOTED ,CALL LIGHT WITH IN REACH .CONTINUE TO MONITOR
[2020-03-17 02:29] LABS: CREATINE KINASE MB 2.9 ng/mL (0-5.0)
--- NOTE | 2020-03-17 03:13 | NUR ---
CALL JESSICA WRAY CONCERNING PATIENTS TROPONIN LEVEL AND BLOOD PRESSURE RESULTS. LEFT A MESSAGE, AWAITING RETURN CALL.
[2020-03-17] MEDS ORDERED: ASPIRIN 81 MG CHEW TAB PO ONE (03:30)
[2020-03-17] MEDS ORDERED: METOPROLOL TARTRATE 25 MG TAB PO ONE (03:30)
[2020-03-17] MEDS ORDERED: METOPROLOL SUCCINATE 25 MG TAB XL ONE (03:31)
--- NOTE | 2020-03-17 05:21 | NUR ---
H&P cc: sob HPI: 89yoM, PCP , developed left sided chest discomfort with nausea anv vomiting for 5 days; No SOB. PMH: DM2, HTN, HLD, hyponatremia, PNA, PAF, urinary stones. PShx: PCI Allergies; see emr FH/SH; ; no cigs meds; see MAR ROS; no f/c/s/TRUJILLO/dizziness/vision changes/skin rash/back pain/leg pain/confusion v/s; revd PE tired appearing anicteric ns1s2 mod bs soft ntnd no e/t skin dry a&ox3; hopkins appropriate labs/meds revd A/P: Musculoskeletal chest pain- use avoid NSAIDS: use morphine prn ADELE due to ATN Atypical cp DM2- hab1c/lipids HTN- use BB; PAF- BB; cont AC Prop: lovenox BID; pepcid dispo: treat musculoskeletal pain; f/u records from med ctr. Rashel Walker MD, PhD.
[2020-03-17] MEDS: METOPROLOL TARTRATE 50 MG TAB PO SCH ×2 (05:26→20:41)
[2020-03-17] MEDS ORDERED: DOCUSATE SODIUM 100 MG CAP PO PRN (05:30)
[2020-03-17] MEDS ORDERED: ZOLPIDEM TARTRATE 5 MG TAB PO PRN (05:30)
--- NOTE | 2020-03-17 05:32 | NUR ---
NOTIFIED DR KWON ELEVATED TROPONIN LEVEL DR VAZQUEZ GIVEN NEW ORDERS .CALL LIGHT WITH IN REACH .CONTINUE TO MONITOR
[2020-03-17] MEDS ORDERED: METOPROLOL TARTRATE 25 MG TAB PO SCH (06:00)
[2020-03-17 06:12] LABS: BASOPHILS % 0.2 % (0.0-1.0); EOSINOPHILS # (AUTO) 0.1 (0.0-0.4); EOSINOPHILS % 0.5 % (0.0-6.0); HEMATOCRIT 39.7 % (38.2-49.6); HEMOGLOBIN 12.5 g/dL (14.0-18.0); LYMPHOCYTES % 8.2 % (18.0-39.1); MEAN CORPUSCULAR HGB CONC 31.5 g/dL (31-35); MEAN CORPUSCULAR VOLUME 79.2 fL (81-99); MONOCYTES # (AUTO) 1.2 (0.2-0.8); MONOCYTES % 9.4 % (4.4-11.3); NEUTROPHILS # (AUTO) 10.3 (2.1-6.9); NEUTROPHILS % 81.1 % (38.7-80.0); PLATELET COUNT 163 x10e3/uL (140-360); RED BLOOD COUNT 5.01 x10e6/uL (4.3-5.7); RED CELL DISTRIBUTION WIDTH 19.3 % (11.7-14.4)
[2020-03-17 06:41] LABS: CHOL/HDL RATIO 2.7 (3.9-4.7)
[2020-03-17 06:47] LABS: CREATINE KINASE MB 2.7 ng/mL (0-5.0)
--- NOTE | 2020-03-17 07:03 | Diagnostic Imaging Report ---
EXAMINATION: CHEST SINGLE (PORTABLE) INDICATION: Chest pain COMPARISON: 03/16/2020 FINDINGS: AP view TUBES and LINES: None. LUNGS: Lungs are well inflated. Interval increase in left basilar atelectasis. The right lung remains grossly clear. PLEURA: No pleural effusion or pneumothorax. HEART AND MEDIASTINUM: The cardiomediastinal silhouette remains mildly enlarged. Unchanged prosthetic mitral valve. BONES AND SOFT TISSUES: No acute osseous lesion. Soft tissues are unremarkable. UPPER ABDOMEN: No free air under the diaphragm. IMPRESSION: Interval increase in left basilar atelectasis. Signed by: Nicholas Lei MD on 03/17/2020 7:00 AM
[2020-03-17 07:04] LABS: ANION GAP 13.1 mmol/L (8-16); CALCIUM 10.6 mg/dL (8.4-10.2); CREATININE, SERUM 1.33 mg/dL (0.72-1.25); POTASSIUM 4.1 mmol/L (3.5-5.1)
--- NOTE | 2020-03-17 07:12 | NUR ---
BEDSIDE REPORT GIVEN TO THE ONCOMING NURSE.
--- NOTE | 2020-03-17 07:15 | NUR ---
Received bedside shift report from night nurse. Patient sitting up in bed, denies pain at this time with no visible signs of distress noted. Call light within reach, bed alarm on.
--- NOTE | 2020-03-17 07:55 | NUR ---
Dr. Jessika Caal called for cardiac consult, covering for Dr. Ha. Notified of AM troponin of 0.396, ordered for ECHO, order read back and verified. Will be in to see the patient.
[2020-03-17] MEDS: INSULIN LISPRO 100 UNIT/1 ML 3ML VIAL SQ SCH ×4 (08:40→20:41)
[2020-03-17] MEDS: CLOPIDOGREL BISULFATE 75 MG TAB PO SCH (08:41)
--- NOTE | 2020-03-17 09:35 | NUR ---
Pt sleeping soundly and no family present. Treasury Agent left a card describing availability of broadcast news producer and instructions on how to contact a broadcast news producer. BEAR SHARMA Treasury Agent Spiritual Care Department O: [phone]
[2020-03-17] MEDS: INSULIN GLARGINE 100 UNITS/ML VIAL SQ SCH (10:46)
[2020-03-17] MEDS: ACETAMINOPHEN 325 MG TAB PO PRN (12:41)
--- NOTE | 2020-03-17 12:50 | NUR ---
Dr. Walker notified of blood sugar of 421, okay to cover with sliding scale, no additional coverage. Ordered for morphine 4mg IV every four hours as needed for severe pain and Lovenox 80mg subcutaneous twice daily. Orders read back and verified. Entered as ordered. Pending medical records from [facility] for complete cardiac and medical history.
--- NOTE | 2020-03-17 12:59 | NUR ---
ADDENDUM to H&P Physical Exquisitely tender chest wall on left H&P cc: sob HPI: 89yoM, PCP , developed left sided chest discomfort with nausea anv vomiting for 5 days; No SOB. PMH: DM2, HTN, HLD, hyponatremia, PNA, PAF, urinary stones. PShx: PCI Allergies; see emr FH/SH; ; no cigs meds; see MAR ROS; no f/c/s/TRUJILLO/dizziness/vision changes/skin rash/back pain/leg pain/confusion v/s; revd PE tired appearing anicteric ns1s2 mod bs soft ntnd no e/t skin dry Exquisitely tender chest wall on left a&ox3; hopkins appropriate labs/meds revd A/P: Musculoskeletal chest pain- use avoid NSAIDS: use morphine prn ADELE due to ATN Atypical cp DM2- hab1c/lipids HTN- use BB; PAF- BB; cont AC Prop: lovenox BID; pepcid dispo: treat musculoskeletal pain; f/u records from med ctr. Rashel Walker MD, PhD.
[2020-03-17 13:56] LABS: CREATINE KINASE MB 2.1 ng/mL (0-5.0)
--- NOTE | 2020-03-17 14:35 | Consultation ---
DATE OF CONSULTATION: 03/17/2020 Cardiology Consultation REQUESTING PHYSICIAN: Dr. Rashel Walker. REASON FOR CONSULTATION: Chest pain. HISTORY OF PRESENT ILLNESS: This is an 89-year-old male with history of severe aortic stenosis status post TAVR in 2019, hypertension, hyperlipidemia, and diabetes mellitus, who presents with complaints of chest pain and weakness. The patient is an extremely poor historian, but reports chest pain for the last 1 to 2 days. He was unable to describe the character of the pain, but did endorse it was 8/10 in severity. He stated the pain would come and go, and was associated with shortness of breath. He denies any nausea or diaphoresis. He denied any edema, orthopnea, or PND. REVIEW OF SYSTEMS: Negative except as per HPI. PAST MEDICAL HISTORY: 1. Severe aortic stenosis, status post TAVR 2019. 2. Hypertension. 3. Hyperlipidemia. 4. Diabetes mellitus. PAST SURGICAL HISTORY: 1. Tonsillectomy. 2. TAVR. ALLERGIES: PLEASE SEE EMR. MEDICATIONS: Please see medication list. SOCIAL HISTORY: No tobacco, alcohol, or illicit drugs. FAMILY HISTORY: Noncontributory to current illness. PHYSICAL EXAMINATION: VITAL SIGNS: Temperature 98.4 degrees, pulse 62, respiratory rate 18, blood pressure 138/79, and oxygen saturation 99% on room air. GENERAL: Elderly man, in no acute distress, well-developed, well-nourished. HEENT: Normocephalic and atraumatic. Pupils are equal. No scleral icterus. NECK: Supple. No thyromegaly or cervical lymphadenopathy. No carotid bruits. LUNGS: Clear to auscultation bilaterally. No wheezes or crackles. CARDIOVASCULAR: Normal rate. Regular rhythm. A 1/6 systolic murmur noted. ABDOMEN: Soft and nontender. EXTREMITIES: No edema. NEUROLOGIC: Nonfocal exam. LABORATORY DATA: WBC 12.72, hemoglobin 12.5, hematocrit 39.7, and platelets 163. Sodium 138, potassium 4.1, chloride 102, CO2 27, BUN 37, and creatinine 1.33. Troponin 0.396. BNP 637. Chest x-ray, interval increase in left basilar atelectasis. IMPRESSION: 1. Chest pain. 2. Chronic systolic heart failure, LVEF 40% to 45%. 3. Chronic atrial fibrillation. 4. Hypertension. 5. Hyperlipidemia. 6. Diabetes mellitus. 7. Aortic stenosis, status post transcatheter aortic valve replacement. 8. Chronic kidney disease. RECOMMENDATIONS: The patient had TAVR in 2019. He would have had a cardiac catheterization performed prior to this procedure. Request records from [facility]. The patient's son was called, but was unclear as to the findings of his evaluation at [facility]. In the meantime, we will check echocardiogram to evaluate the patient's prosthetic valve. Gentle diuretics could be considered once renal function stabilizes. Monitor the patient on telemetry. Continue home cardiac medications otherwise, specifically Eliquis and Plavix. Thank you for this consult. We will continue to follow. Renea Caal MD ABS/MODL /[id number]
[2020-03-17] MEDS: MORPHINE SULFATE INJ 4 MG/ML INJ 1ML IV PRN ×2 (14:39→20:42)
[2020-03-17] MEDS ORDERED: ENOXAPARIN INJ 80 MG/0.8 ML SYR SC SCH (16:00)
--- NOTE | 2020-03-17 16:30 | NUR ---
Son, Jerry Alexander called for patient update. Stated that patient was taken to a stand alone urgent care over the weekend on Monday03/13/20 due to swelling in his right foot. 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 Was started on antibiotics, unable to provide the name. Per son, anytime patient takes antibiotics he becomes confused and depressed. On Monday03/15/20 patient was found by son at his home, he hit his left elbow against something but patient is not sure how it happened. This nurse assessed patient, there is noticeable swelling to left shoulder. Feet appear normal at this time. Hal Jerry requests to be called for any updates. Dr. Walker notified.
[2020-03-17] MEDS: ENOXAPARIN INJ 80 MG/0.8 ML SYR SC SCH (18:07)
[2020-03-17] MEDS: FAMOTIDINE 20 MG TAB PO SCH (18:20)
--- NOTE | 2020-03-17 19:05 | NUR ---
Bedside shift report given to night nurse. Patient resting at this time, call light within reach. Bed alarm on.
--- NOTE | 2020-03-17 19:43 | NUR ---
RECEIVED PT IN BED AOX2 .DENIES PAIN .RESPIRATIONS ARE EVEN AND UNLABORED .CALL LIGHT WITH IN REACH .CONTINUE TO MONITOR
[2020-03-17] MEDS: ATORVASTATIN 40 MG TAB PO SCH (20:40)
[2020-03-18] VITALS (8 sets, daily range): BP systolic 105–189; BP diastolic 54–99
[2020-03-18] MEDS: MORPHINE SULFATE INJ 4 MG/ML INJ 1ML IV PRN ×3 (04:03→17:41)
[2020-03-18] MEDS: ENOXAPARIN INJ 80 MG/0.8 ML SYR SC SCH ×2 (06:28→17:39)
--- NOTE | 2020-03-18 07:10 | NUR ---
Received bedside shift report. Patient currently asleep with no visible signs of distress noted. Call light within reach, bed alarm on.
--- NOTE | 2020-03-18 07:17 | NUR ---
BEDSIDE REPORT GIVEN TO THE ON COMING NURSE
[2020-03-18] MEDS: INSULIN LISPRO 100 UNIT/1 ML 3ML VIAL SQ SCH ×4 (07:30→21:00)
[2020-03-18] MEDS: INSULIN GLARGINE 100 UNITS/ML VIAL SQ SCH (07:53)
[2020-03-18] MEDS: FAMOTIDINE 20 MG TAB PO SCH ×2 (08:46→17:39)
[2020-03-18] MEDS: METOPROLOL TARTRATE 50 MG TAB PO SCH ×2 (08:47→21:00)
[2020-03-18] MEDS: CLOPIDOGREL BISULFATE 75 MG TAB PO SCH (08:47)
--- NOTE | 2020-03-18 15:52 | NUR ---
IM- progress note O/N see emr ROS; no f/c/s/TRUJILLO/dizziness/vision changes/skin rash/back pain/leg pain/confusion v/s; revd PE tired appearing anicteric ns1s2 mod bs soft ntnd no e/t skin dry Exquisitely tender chest wall on left a&ox3; [facility] appropriate labs/meds revd A/P: Musculoskeletal chest pain- use avoid NSAIDS: use morphine prn ADELE due to ATN Atypical cp DM2- hab1c/lipids HTN- use BB; PAF- BB; cont AC Hx severe with TAVR in 2019 Prop: lovenox BID; pepcid dispo: treat musculoskeletal pain; f/u records from med ctr. 03-18-20 cont care; await records; pain less today; Musculoskeletal pain. Rashel Walker MD, PhD.
[2020-03-18] MEDS: ACETAMINOPHEN 325 MG TAB PO PRN (17:50)
--- NOTE | 2020-03-18 18:04 | NUR ---
Dr. Walker notified of patients change in mentation and elevated temperature. Emesis x1, patient refusing to eat. Increasingly more confused and disoriented despite reorientation to situation/environment. Tylenol given for oral temp of 100.6 and cooling measures implemented. No new orders received at this time.
--- NOTE | 2020-03-18 19:00 | NUR ---
Bedside shift report given to night nurse. Patient in stable condition.
--- NOTE | 2020-03-18 19:05 | NUR ---
BEDSIDE NURSING SHIFT REPORT COMPLETED WITH MORNING NURSE. PT ALERT TO NAME. NO S/O OF PAIN AT THIS TIME. CALL LIGHT WITHIN REACH. BED LOW AND LOCKED. BED ALARM ON.
--- NOTE | 2020-03-18 19:25 | NUR ---
Per RN home energy consultant supervisor, discharge on hold. Pending Cardiology clearance.
--- NOTE | 2020-03-18 19:41 | NUR ---
Dr. Walker ordered Phenergan 12.5mg IV every six hours as needed for nausea/vomiting.
[2020-03-18] MEDS ORDERED: PROMETHAZINE 12.5MG/ NACL 0.9% 12.5 MG/50 ML BAG IV PRN (19:45)
[2020-03-18] MEDS: ATORVASTATIN 40 MG TAB PO SCH (21:00)
--- NOTE | 2020-03-18 21:00 | Progress Note ---
DATE: 03/18/2020 Cardiology Progress Note SUBJECTIVE: The patient was very somnolent today. He denied chest pain or shortness of breath, but repeatedly fell asleep during interview. OBJECTIVE: VITAL SIGNS: Temperature 97.9 degrees, pulse 99, respiratory rate 16, blood pressure 123/67, and oxygen saturation 96% on room air. GENERAL: Elderly man, somnolent, in no acute distress. LUNGS: Clear to auscultation bilaterally. No wheezes or crackles. CARDIOVASCULAR: Normal rate, regular rhythm. 1/6 systolic murmur. Normal S1 and S2. ABDOMEN: Soft and nontender. EXTREMITIES: No edema. CARDIAC MEDICATIONS: Plavix 75 mg p.o. daily, metoprolol mg p.o. q.12 hours, enoxaparin p.o. at bedtime. LABORATORY DATA: None today. Telemetry was personally reviewed and interpreted, revealing atrial fibrillation. IMPRESSION: 1. Chest pain. 2. Mild sdf-PM-umpjuknsm myocardial infarction. 3. Chronic systolic heart failure, LVEF 40% to 45%. Recovered on last echocardiogram. 4. Chronic atrial fibrillation. 5. Hypertension. 6. Hyperlipidemia. 7. Diabetes mellitus. 8. Aortic stenosis, status post transcatheter aortic valve replacement. 9. Chronic kidney disease. RECOMMENDATIONS: Records were obtained from . [place] the [facility]. The patient underwent cardiac catheterization prior to his TAVR, which revealed 90% ostial stenosis of a small RV branch as well as 90% ostial stenosis of the right PDA with 60% to 70% stenosis of the right PLV. There was 40% stenosis of the mid LAD. On review of records, it appears the patient did not have intervention on the RCA. Given troponin elevation this admission, we would recommend PCI of the RCA if clinically improved tomorrow. Request PT evaluation to evaluate functional status. In the meantime, continue home cardiac medications. Restart Lasix if renal function is stable. Thank you for this consult. We will continue to follow. Renea Caal MD ABS/MODL /[id number]
[2020-03-19] VITALS: BP 129/79
[2020-03-19 04:00] VITALS: BP 116/64
[2020-03-19] MEDS: ENOXAPARIN INJ 80 MG/0.8 ML SYR SC SCH (06:05)
--- NOTE | 2020-03-19 07:25 | NUR ---
ASSESSMENT: Spiritual Distress B And B Gang Worker requested Steel Pourer Helper's assistance with pt. Pt in demonstrative, emotional prayer while on his knees beside bed. Pt expressing emotions thru words and tears. Pt visibly troubled and confused. Intervention: Provided calming pastoral presence and calming touch. Provided supportive prayer. Facilitated call to pt's structural steel fitter and son (Jerry). Outcome: Followed up w/ RN, pt's son and his structural steel fitter. Will follow as able. [facility] Department O: [phone]
[2020-03-19] MEDS: INSULIN LISPRO 100 UNIT/1 ML 3ML VIAL SQ SCH ×2 (07:30→11:59)
[2020-03-19 08:07] VITALS: BP 135/97
[2020-03-19 08:11] VITALS: BP 135/97
[2020-03-19] MEDS: INSULIN GLARGINE 100 UNITS/ML VIAL SQ SCH (09:00)
[2020-03-19] MEDS: METOPROLOL TARTRATE 50 MG TAB PO SCH (09:47)
[2020-03-19] MEDS: CLOPIDOGREL BISULFATE 75 MG TAB PO SCH (09:47)
[2020-03-19] MEDS: FAMOTIDINE 20 MG TAB PO SCH (09:47)
[2020-03-19 11:49] VITALS: BP 144/73
[2020-03-19] MEDS ORDERED: FUROSEMIDE INJ 10 MG/ML 4 ML VIAL IV SCH (12:00)
--- NOTE | 2020-03-19 12:19 | Progress Note ---
DATE: 03/19/2020 Cardiology progress note SUBJECTIVE: The patient denies chest pain, but does report he was short of breath last night while sleeping. OBJECTIVE: VITAL SIGNS: Temperature 98.6 degrees, pulse 86, respiratory rate 18, blood pressure 144/73, and oxygen saturation 96% on room air. GENERAL: An elderly man, no acute distress. LUNGS: Clear to auscultation bilaterally. No wheezes or crackles. CARDIOVASCULAR: Normal rate. Irregularly irregular, 1/6 systolic murmur. Normal S1, S2. ABDOMEN: Soft, nontender. EXTREMITIES: No edema. CARDIAC MEDICATIONS: Plavix 75 mg p.o. daily, metoprolol tartrate 50 mg p.o. q.12 hours, enoxaparin 70 mg subcu q.12 hours, and atorvastatin 40 mg p.o. at bedtime. LABORATORY DATA: None today. TELEMETRY: Personally reviewed and interpreted, revealing atrial fibrillation. IMPRESSION: 1. Chest pain. 2. Mild non-ST elevation myocardial infarction. 3. Chronic systolic heart failure, left ventricular ejection fraction 40-45% with recovery on last echocardiogram. 4. Chronic atrial fibrillation. 5. Hypertension. 6. Hyperlipidemia. 7. Diabetes mellitus. 8. Aortic stenosis, status post transcatheter aortic valve replacement. 9. Chronic kidney disease. RECOMMENDATIONS: Records were obtained from [facility] at the [facility]. The patient underwent cardiac catheterization prior to his TAVR, which revealed 90% ostial stenosis of the small RV branch as well as 90% ostial stenosis of the right PDA with 60-70% stenosis of the right PLV. There was 40% stenosis of the mid LAD. He does not appear that patient had intervention on the RCA at the time of his procedure or his TAVR. Given troponin elevation, PCI of the RCA was recommended to the patient and family. Risks and benefits of procedure were discussed. Family has elected for conservative medical therapy. We will continue the patient on Plavix as well. His LDL is controlled. Continue metoprolol. No aspirin as he has indication for Eliquis for CVA prophylaxis. PT as tolerated. Restart Lasix. Thank you for this consult. We will continue to follow. Renea Caal MD ABS/MODL /[id number]
[2020-03-19] MEDS ORDERED: KEFLEX500 MG PO (13:19)
--- NOTE | 2020-03-19 13:20 | NUR ---
D/C summary Principal Dx: Musculoskeletal chest pain- use avoid NSAIDS: use morphine prn ADELE due to ATN Atypical cp DM2- hab1c/lipids HTN- use BB; PAF- BB; cont AC Hx severe with TAVR in 2019 Prop: lovenox BID; pepcid dispo: treat musculoskeletal pain; f/u records from med ctr. 03-18-20 cont care; await records; pain less today; Musculoskeletal pain. d/c home stable f/u pcp 1 week and Cardiology 1 week d/c>35mins Rashel Walker MD, PhD.
--- NOTE | 2020-03-19 13:22 | NUR ---
Addendum: pt/family refused LHC; cleared by cardiology for home. D/C summary Principal Dx: Musculoskeletal chest pain- use avoid NSAIDS: use morphine prn ADELE due to ATN Atypical cp DM2- hab1c/lipids HTN- use BB; PAF- BB; cont AC Hx severe with TAVR in 2019 Prop: lovenox BID; pepcid dispo: treat musculoskeletal pain; f/u records from med ctr. 03-18-20 cont care; await records; pain less today; Musculoskeletal pain. Pt refused LHC; cleared by cardiology for home. d/c home stable f/u pcp 1 week and Cardiology 1 week d/c>35mins Rashel Walker MD, PhD.
--- NOTE | 2020-03-19 14:12 | NUR ---
Patient received a discharge order from Dr. Walker at 1330. Patient was given discharge instructions, prescriptions were sent to [facility] by Dr. Walker. Patient's IV was removed at 1410 and covered with a dry dressing. Discharge follow up for PCP provider is in 1 week and table filler in 2 weeks. All of this was explained to with the son and patient. They both verbalized understanding. Will follow up when they discharge. Addendum: 03/19/20 at 1527 by Haily Reid RN Patient discharged with sonJerry, at 1439. Patient's son had no questions or complaints.
== END 2020-03-19 14:39 | disposition home or self-care (01) ==
LOC: ER 14:13 → ERHOLD 16:51 → MED/SURG3 19:20
PROVIDERS: ADMIT Internal Medicine; ATTEND Internal Medicine
DX: I21.4 Non-ST elevation (NSTEMI) myocardial infarction (principal); R07.9 Chest pain, unspecified; I50.22 Chronic systolic (congestive) heart failure; I48.20 Chronic atrial fibrillation, unspecified; E11.22 Type 2 diabetes mellitus with diabetic chronic kidney disease; I13.0 Hypertensive heart and chronic kidney disease with heart failure and stage 1 through stage 4 chronic kidney disease, or unspecified chronic kidney disease; N18.9 Chronic kidney disease, unspecified; Z87.442 Personal history of urinary calculi; E78.5 Hyperlipidemia, unspecified; I35.0 Nonrheumatic aortic (valve) stenosis; Z82.49 Family history of ischemic heart disease and other diseases of the circulatory system; Z95.2 Presence of prosthetic heart valve; N17.0 Acute kidney failure with tubular necrosis; Z79.4 Long term (current) use of insulin
CPT/HCPCS: 36415 ×3; 71045 ×2; 80048; 80053; 80061; 81001; 82550 ×2; 82553 ×2; 82948 ×4; 83036; 83880; 84484 ×3; 85025 ×2; 85610; 85730; 87635; 93005 ×2; 93306; 97116; 97139; 97162; 99284; G0378 ×4; J0360; J1650 ×3; J1815; J1940; J2270 ×2